=== PATIENT | male | born 1955 | race Hispanic/Latino ===

== ENCOUNTER 2020-02-23 14:22 | Inpatient (IN) | payer OTHER, MEDICARE ==
--- NOTE | 2020-02-23 18:04 | Event Note ---
ED Screening Note ED Screening Note: states that he went to Dr. Thornton office and had abnormal renal function PMHx HTN, DM, CHF This initial assessment/diagnostic orders/clinical plan/treatment(s) is/are subject to change based on patients health status, clinical progression and re- assessment by fellow clinical providers in the ED. Further treatment and workup at subsequent clinical providers discretion. Patient/guardian urged not to elope from the ED as their condition may be serious if not clinically assessed and managed. Initial orders include: labs, UA
[2020-02-23 18:41] LABS: Calcium 9.5 mg/dL (8.4-10.2)
[2020-02-23 18:51] LABS: Basophils # (Auto) 0.1 K/mm3 (0.0-0.1); Basophils % (Auto) 0.5 % (0.0-1.8); Eosinophils # (Auto) 0.1 K/mm3 (0.0-0.4); Eosinophils % (Auto) 0.7 % (0.0-4.3); Hemoglobin 13.4 gm/dl (11.8-15.2); Lymphocytes # (Auto) 1.3 K/mm3 (1.2-5.4); Lymphocytes % (Auto) 11.4 % (13.4-35.0); Mean Corpuscular HGB Conc 33 % (32-34); Mean Corpuscular Volume 87 fl (84-94); Monocytes # (Auto) 1.4 K/mm3 (0.0-0.8); Monocytes % (Auto) 12.7 % (0.0-7.3); Platelet Count 249 K/mm3 (140-440); Red Blood Count 4.71 M/mm3 (3.65-5.03); Red Cell Distribution Width 13.9 % (13.2-15.2)
[2020-02-23 18:53] LABS: INR 1.17 (0.87-1.13)
[2020-02-23 18:54] LABS: Partial Thromboplastin Time 36.1 Sec. (24.2-36.6)
--- NOTE | 2020-02-23 18:59 | Emergency Department Report ---
HPI - General Chief Complaint: Recheck/Abnormal Lab/Rx Time Seen by Provider: 02/23/20 18:02 - HPI HPI: This is a 64-year-old male who presents to the emergency department, sent in by his vascular surgeon Dr. Eris Shearer, with a gangrenous right fourth toe. The patient was recently at [facility] for this fourth toe and he was placed on some antibiotics and discharged home. The patient then followed up yesterday with his salesperson shoes, Dr. Martin, who took a look at the toe and sent him to see Dr. Shearer. It appears that the patient was going to have a revascularization procedure done but before the procedure he had i-STAT labs drawn that showed a creatinine of 2.7 and the procedure was canceled. The patient was then sent into the emergency department for further evaluation. The patient was started on Cilostazol, on top of the baby aspirin he takes. The patient says that "a surgeon was contacted to do an amputation." The patient has a past medical history of hypertension, CHF, diabetes, coronary artery disease with previous CABG. ED Past Medical Hx - Past Medical History Previous Medical History?: Yes Hx Hypertension: Yes Hx Congestive Heart Failure: Yes Hx Diabetes: Yes Hx Renal Disease: Yes (Under investigation) Hx Kidney Stones: Yes - Surgical History Additional Surgical History: CABG ED Review of Systems ROS: Stated complaint: KIDNEY Other details as noted in HPI Physical Exam - Physical Exam Vital Signs: Vital Signs 02/23/20 14:44 Temperature 97.9 F Pulse Rate 76 Respiratory 18 Rate Blood Pressure 151/62 O2 Sat by Pulse 95 Oximetry Physical Exam: GENERAL: The patient is well-developed well-nourished. HENT: Normocephalic. Atraumatic. Patient has moist mucous membranes. EYES: Extraocular motions are intact. NECK: Supple. Trachea is midline. CHEST/LUNGS: Clear to auscultation. There is no respiratory distress noted. HEART/CARDIOVASCULAR: Regular. There is no tachycardia. There is no murmur. ABDOMEN: Abdomen is soft, nontender. Patient has normal bowel sounds. SKIN: Skin is warm and dry. The fourth toe of the right foot appears gangrenous and necrotic. There is some ulceration towards the proximal base of that toe. NEURO: The patient is awake, alert, and oriented. The patient is cooperative. Normal speech. MUSCULOSKELETAL: There is some tenderness to palpation of the right foot around the third and fourth toes. Unable to palpate dorsalis pedis pulse of the right foot. ED Course Vital Signs 02/23/20 14:44 Temperature 97.9 F Pulse Rate 76 Respiratory 18 Rate Blood Pressure 151/62 O2 Sat by Pulse 95 Oximetry - Consultations Consultation #1: 02/23/20 19:[address] Galvan, the partner of Dr. Shearer, who is aware of the patient's arrival and they will consult on the patient. He agrees with IV antibiotics and the patient can remain on aspirin and Cilostazol. He is asked for Dr. Garcia to be consulted for evaluation of the gangrenous fourth toe and for nephrology to be consulted. ED Medical Decision Making - Lab Data Result diagrams: 02/23/20 18:08 02/23/20 18:08 Lab Results 02/23/20 02/23/20 02/23/20 Range/Units 18:08 18:08 18:08 WBC 11.3 H (4.5-11.0) K/mm3 RBC 4.71 (3.65-5.03) M/mm3 Hgb 13.4 (11.8-15.2) gm/dl Hct 41.0 (35.5-45.6) % MCV 87 (84-94) fl MCH 29 (28-32) pg MCHC 33 (32-34) % RDW 13.9 (13.2-15.2) % Plt Count 249 (140-440) K/mm3 Lymph % (Auto) 11.4 L (13.4-35.0) % [place] % (Auto) 12.7 H (0.0-7.3) % Eos % (Auto) 0.7 (0.0-4.3) % Baso % (Auto) 0.5 (0.0-1.8) % Lymph # (Auto) 1.3 (1.2-5.4) K/mm3 [place] # (Auto) 1.4 H (0.0-0.8) K/mm3 Eos # (Auto) 0.1 (0.0-0.4) K/mm3 Baso # (Auto) 0.1 (0.0-0.1) K/mm3 Seg Neutrophils % 74.7 H (40.0-70.0) % Seg Neutrophils # 8.4 H (1.8-7.7) K/mm3 PT 14.9 (12.2-14.9) Sec. INR 1.17 H (0.87-1.13) APTT 36.1 (24.2-36.6) Sec. Sodium 133 L (137-145) mmol/L Potassium 4.6 (3.6-5.0) mmol/L Chloride 100.9 (98-107) mmol/L Carbon Dioxide 18 L (22-30) mmol/L Anion Gap 19 mmol/L BUN 40 H (9-20) mg/dL Creatinine 2.6 H (0.8-1.3) mg/dL Estimated GFR 25 ml/min BUN/Creatinine Ratio 15 % Glucose 197 H (75-100) mg/dL Calcium 9.5 (8.4-10.2) mg/dL - Medical Decision Making This patient was sent in by his vascular surgeon for further evaluation of what appears to be a gangrenous right fourth toe. The patient was unable to get revascularization done by vascular surgery today secondary to the patient having renal insufficiency/failure with a creatinine of about 2.7. Initially the patient denied having any history of chronic kidney disease, but he does admit that he was found to have some renal insufficiency in the past through [facility] but there was some problem with his outpatient nephrology follow- up. The patient's labs today shows a creatinine of 2.6 and a GFR of 25. On examination he does appear to have a gangrenous and necrotic right fourth toe with some ulceration at the proximal base of the toe. There also appears to be some areas of infection to the partially amputated right third toe. Unable to palpate the dorsalis pedis pulse of the affected right foot, but this is consistent with the office notes from vascular surgery. Vascular surgery was contacted and consulted and has also requested consults for Dr. Garcia and [facility]. All 3 of these consults have been placed. The patient has been started on IV antibiotics. He has been accepted for admission by the hospitalist, Dr. Castillo. Critical Care Time: Yes Critical care time in (mins) excluding proc time.: 35 Critical care attestation.: If time is entered above; I have spent that time in minutes in the direct care of this critically ill patient, excluding procedure time. Critical care time spent with this patient in doing his initial evaluation, multiple reevaluations, IV antibiotics, discussion with vascular surgery, multiple discussions with the patient. Critical Care Time: 35 minutes ED Disposition Clinical Impression: Gangrene of toe of right foot, Arterial insufficiency of lower extremity, Renal insufficiency Hypertension Qualifiers: Hypertension type: essential hypertension Qualified Code(s): I10 - Essential (primary) hypertension Disposition: OP ADMIT IP TO THIS HOSP Is pt being admited?: Yes Condition: Serious Time of Disposition: 21:42
[2020-02-23] MEDS ORDERED: CLINDAMYCIN 600 MG/50 mL 600 MG/50 ML BAG IV ONE (19:11)
[2020-02-23] MEDS ORDERED: PIPERACILLIN/TAZOBACTAM 3.375 3.375 GM/50 ML BAG IV ONE (19:11)
[2020-02-24] MEDS ORDERED: ONDANSETRON 4 MG/2 ML INJ IV PRN (00:13)
[2020-02-24] MEDS ORDERED: DEXTROSE 50% IN WATER (25GM) 50 ML SYRINGE IV PRN (00:13)
[2020-02-24] MEDS ORDERED: ACETAMINOPHEN 325 MG TAB PO PRN (00:13)
[2020-02-24] MEDS ORDERED: MAGNESIUM HYDROXIDE (MOM) ORAL LIQD UDC PO PRN (00:13)
--- NOTE | 2020-02-24 00:36 | History and Physical Report ---
History of Present Illness Date of examination: 02/23/20 Date of admission: 02/23/20 21:43 Chief complaint: Right foot Wound/ Gangrene History of present illness: 64-year-old male with known history of coronary artery disease, hypertension, CHF, diabetes mellitus and chronic kidney disease sent in to the emergency room today by the vascular surgeon Dr. Shearer for suspicious gangrenous right fourth toe. Patient was recently seen at [facility] and placed on some antibiotics and subsequently discharged home. He was also seen yesterday by his communications controller Dr. Martin and was subsequently referred to the vascular surgeon for possible revascularization. However patient had a worsening renal function and therefore procedure was canceled. He was subsequently sent into the emergency room for further evaluation. Patient denies any fever or chills, no chest pain or shortness of breath, no nausea vomiting, no headache or dizziness, no hematuria or dysuria. Work-up in the emergency room today reveals a slightly elevated white count of 11.2 and a mild hyponatremia of 133. Patient was commenced on empiric IV antibiotics for right foot wound/gangrene. General surgery, vascular surgery, and grocery clerk checking have been consulted by the ER physician. Past History Past Medical History: diabetes, ESRD, heart failure, hypertension, renal failure Past Surgical History: CABG, Other (Kidney stones) Social history: no significant social history Family history: no significant family history Medications and Allergies Allergies Allergy/AdvReac Type Severity Reaction Status Date / Time No Known Allergies Allergy Unverified 02/23/20 14:44 Active Meds: Active Medications Acetaminophen (Acetaminophen 325 Mg Tab) 650 mg PO Q4H PRN PRN Reason: Pain MILD(1-3)/Fever >100.5/HART Dextrose (Dextrose 50% In Water (25gm) 50 Ml Syringe) 0 ml IV Q30MIN PRN; Protocol PRN Reason: Hypoglycemia Sodium Chloride (Nacl 0.9% 1000 Ml) 1,000 mls @ 75 mls/hr IV DIRECT SHANNON Clindamycin HCl (Cleocin 600 Mg/50 Ml) 600 mg in 50 mls @ 100 mls/hr IV Q8H SHANNON; Protocol Insulin Human Lispro (Insulin Lispro 100 Unit/Ml Vial 3 Ml) 0 unit SUB-Q ACHS SHANNON; Protocol Magnesium Hydroxide (Magnesium Hydroxide (Mom) Oral Liqd Udc) 30 ml PO Q4H PRN PRN Reason: Constipation Morphine Sulfate (Morphine 2 Mg/1 Ml Inj) 2 mg IV Q4H PRN PRN Reason: Pain, Moderate (4-6) Ondansetron HCl (Ondansetron 4 Mg/2 Ml Inj) 4 mg IV Q8H PRN PRN Reason: Nausea And Vomiting Sodium Chloride (Sodium Chloride 0.9% 10 Ml Flush Syringe) 10 ml IV BID SHANNON Sodium Chloride (Sodium Chloride 0.9% 10 Ml Flush Syringe) 10 ml IV PRN PRN PRN Reason: LINE FLUSH Review of Systems Constitutional: no fever, no chills Ears, nose, mouth and throat: no nasal congestion, no sore throat Cardiovascular: no chest pain, no palpitations Respiratory: no cough, no shortness of breath Gastrointestinal: no abdominal pain, no nausea, no vomiting, no diarrhea Genitourinary Male: no dysuria, no hematuria, no flank pain Musculoskeletal: no neck pain, no low back pain Integumentary: foot/leg ulcers (Wound on the right foot), no rash, no pruritis Neurological: no headaches, no confusion Psychiatric: no anxiety, no depression Exam - Constitutional Vitals: Temp Pulse Resp BP Pulse Ox 97.9 F 76 18 151/62 95 02/23/20 14:44 02/23/20 14:44 02/23/20 14:44 02/23/20 14:44 02/23/20 14:44 General appearance: Present: no acute distress, well-nourished, obese - EENT Eyes: Present: PERRL, EOM intact. Absent: scleral icterus ENT: hearing intact, clear oral mucosa, dentition normal - Neck Neck: Present: supple, normal ROM - Respiratory Respiratory effort: normal Respiratory: bilateral: CTA - Cardiovascular Rhythm: regular Heart Sounds: Present: S1 & S2. Absent: gallop, systolic murmur, diastolic murmur, rub - Extremities Extremities: Full ROM Extremity abnormal: edema (2+ on right lower extremity), ulceration (On right third toe with foul smelling discarge.), erythema (Over dorsum of right foot), black (4th right toe,), pulses diminished (On right foot,), tenderness (Over the dorsum of right foot) Peripheral Pulses: within normal limits - Abdominal General gastrointestinal: Present: soft, non-tender, non-distended, normal bowel sounds. Absent: mass - Integumentary Integumentary: Present: clear, warm, dry. Absent: rash - Musculoskeletal Musculoskeletal: strength equal bilaterally - Psychiatric Psychiatric: appropriate mood/affect, intact judgment & insight, memory intact, cooperative - Neurologic Neurologic: CNII-XII intact, no focal deficits, moves all extremities Results - Labs CBC & Chem 7: 02/23/20 18:08 02/23/20 18:08 Labs: Abnormal lab results 02/23/20 02/23/20 02/23/20 Range/Units 18:08 18:08 18:08 WBC 11.3 H (4.5-11.0) K/mm3 Lymph % (Auto) 11.4 L (13.4-35.0) % [place] % (Auto) 12.7 H (0.0-7.3) % [place] # (Auto) 1.4 H (0.0-0.8) K/mm3 Seg Neutrophils % 74.7 H (40.0-70.0) % Seg Neutrophils # 8.4 H (1.8-7.7) K/mm3 INR 1.17 H (0.87-1.13) Sodium 133 L (137-145) mmol/L Carbon Dioxide 18 L (22-30) mmol/L BUN 40 H (9-20) mg/dL Creatinine 2.6 H (0.8-1.3) mg/dL Glucose 197 H (75-100) mg/dL Assessment and Plan - Patient Problems (1) Gangrene of toe of right foot Current Visit: Yes Status: Acute Plan to address problem: Patient commenced on empiric IV antibiotics. General surgery, vascular surgery has been consulted for evaluation. (2) Hypertension Current Visit: Yes Status: Acute Qualifiers: Hypertension type: essential hypertension Qualified Code(s): I10 - Essential (primary) hypertension Plan to address problem: We resume routine home medications and monitor vital signs closely. (3) Arterial insufficiency of lower extremity Current Visit: Yes Status: Acute Plan to address problem: Patient to be evaluated by vascular surgery. (4) Renal insufficiency Current Visit: Yes Status: Acute Plan to address problem: Consult placed to nephrology for evaluation. (5) Diabetes mellitus Current Visit: Yes Status: Acute Plan to address problem: We will monitor Accu-Cheks. (6) DVT prophylaxis Current Visit: Yes Status: Acute Plan to address problem: Patient placed on sequential compression device. We will hold off anticoagulation in view of possible surgery. (7) Full code status Current Visit: Yes Status: Acute Plan to address problem: Patient is a full code.
[2020-02-24] MEDS: SODIUM CHLORIDE 0.9% 1000 ML 1,000 ML IV SCH ×2 (05:35→21:47)
[2020-02-24] MEDS: CLINDAMYCIN 600 MG/50 mL 600 MG/50 ML BAG IV SCH ×3 (05:35→21:11)
--- NOTE | 2020-02-24 09:37 | Consultation ---
History of Present Illness Consult date: 02/24/20 - History of present illness History of present illness: 64 yo diabetic male, non-smoker who is s/p recent amputation of his right 3rd toe by a kiln burner helper at [facility]. Yesterday, he was noted to have ischemic/gangrenous changes in his right 4th toe and was referred to the ED for further evaluation. He was taking Keflex as an outpt. Past History Past Medical History: diabetes, ESRD, heart failure, hypertension, renal failure Past Surgical History: CABG, Other (Kidney stones) Social history: no significant social history Family history: no significant family history Medications and Allergies Allergies Allergy/AdvReac Type Severity Reaction Status Date / Time No Known Allergies Allergy Unverified 02/23/20 14:44 Active Meds: Active Medications Acetaminophen (Acetaminophen 325 Mg Tab) 650 mg PO Q4H PRN PRN Reason: Pain MILD(1-3)/Fever >100.5/HART Dextrose (Dextrose 50% In Water (25gm) 50 Ml Syringe) 0 ml IV Q30MIN PRN; Protocol PRN Reason: Hypoglycemia Sodium Chloride (Nacl 0.9% 1000 Ml) 1,000 mls @ 75 mls/hr IV DIRECT SHANNON Last Admin: 02/24/20 05:35 Dose: 75 mls/hr Documented by: Clindamycin HCl (Cleocin 600 Mg/50 Ml) 600 mg in 50 mls @ 100 mls/hr IV Q8H SHANNON; Protocol Last Admin: 02/24/20 05:35 Dose: 100 mls/hr Documented by: Insulin Human Lispro (Insulin Lispro 100 Unit/Ml Vial 3 Ml) 0 unit SUB-Q ACHS SHANNON; Protocol Magnesium Hydroxide (Magnesium Hydroxide (Mom) Oral Liqd Udc) 30 ml PO Q4H PRN PRN Reason: Constipation Morphine Sulfate (Morphine 2 Mg/1 Ml Inj) 2 mg IV Q4H PRN PRN Reason: Pain, Moderate (4-6) Ondansetron HCl (Ondansetron 4 Mg/2 Ml Inj) 4 mg IV Q8H PRN PRN Reason: Nausea And Vomiting Sodium Chloride (Sodium Chloride 0.9% 10 Ml Flush Syringe) 10 ml IV BID SHANNON Sodium Chloride (Sodium Chloride 0.9% 10 Ml Flush Syringe) 10 ml IV PRN PRN PRN Reason: LINE FLUSH Review of Systems All systems: negative (none) Exam Vital Signs Temp Pulse Resp BP Pulse Ox 97.9 F 76 18 151/62 95 02/23/20 14:44 02/23/20 14:44 02/23/20 14:44 02/23/20 14:44 02/23/20 14:44 - General physical appearance Positive: well developed, well nourished, no distress - Eyes Positive: PERRL, normal occular movement - ENT Positive: normal pinna, normal nares, normal mucosa, no hearing loss, no congestion - Neck Positive: no masses, no bruits, trachea midline, no venous distension - Respiratory Positive: normal expansion, normal respiratory effort, clear to auscultation - Cardiovascular Rhythm: regular Heart Sounds: Present: S1 & S2. Absent: rub, click - Extremities Extremity abnormal: other (Right DP pulse is non-palpable. See Integumentary.) - Breasts Breasts: normal, no mass, no skin changes - Abdomen Abdomen: Present: soft, bowel sounds normal. Absent: tender, distended Hernia: none - Genitourinary Male Genitourinary: normal - Integumentary no rash, no growths, no abnormal pigmentation, other (The right 3rd toe is surgically absent. The right 4th toe is gangrenous. There is minimal erythema just proximal to the base of the right 3rd and 4th toes. No fluctuance or crepitus.) - Neurologic Neurologic: alert and oriented to time, place and person, motor strength and sensation are grossly intact - Musculoskeletal normal gait, normal posture - Psychiatric Psychiatric: appropriate mood/affect, intact judgment & insight Results - Labs 02/23/20 18:08 02/23/20 18:08 Abnormal lab results 02/23/20 02/23/20 02/23/20 Range/Units 18:08 18:08 18:08 WBC 11.3 H (4.5-11.0) K/mm3 Lymph % (Auto) 11.4 L (13.4-35.0) % [place] % (Auto) 12.7 H (0.0-7.3) % [place] # (Auto) 1.4 H (0.0-0.8) K/mm3 Seg Neutrophils % 74.7 H (40.0-70.0) % Seg Neutrophils # 8.4 H (1.8-7.7) K/mm3 INR 1.17 H (0.87-1.13) Sodium 133 L (137-145) mmol/L Carbon Dioxide 18 L (22-30) mmol/L BUN 40 H (9-20) mg/dL Creatinine 2.6 H (0.8-1.3) mg/dL Glucose 197 H (75-100) mg/dL POC Glucose (70-105) mg/dL 02/24/20 02/24/20 Range/Units 01:43 07:25 WBC (4.5-11.0) K/mm3 Lymph % (Auto) (13.4-35.0) % [place] % (Auto) (0.0-7.3) % [place] # (Auto) (0.0-0.8) K/mm3 Seg Neutrophils % (40.0-70.0) % Seg Neutrophils # (1.8-7.7) K/mm3 INR (0.87-1.13) Sodium (137-145) mmol/L Carbon Dioxide (22-30) mmol/L BUN (9-20) mg/dL Creatinine (0.8-1.3) mg/dL Glucose (75-100) mg/dL POC Glucose 152 H 164 H (70-105) mg/dL Diabetes panel 02/23/20 Range/Units 18:08 Sodium 133 L (137-145) mmol/L Potassium 4.6 (3.6-5.0) mmol/L Chloride 100.9 (98-107) mmol/L Carbon Dioxide 18 L (22-30) mmol/L BUN 40 H (9-20) mg/dL Creatinine 2.6 H (0.8-1.3) mg/dL Glucose 197 H (75-100) mg/dL Calcium 9.5 (8.4-10.2) mg/dL Calcium panel 02/23/20 Range/Units 18:08 Calcium 9.5 (8.4-10.2) mg/dL Pituitary panel 02/23/20 Range/Units 18:08 Sodium 133 L (137-145) mmol/L Potassium 4.6 (3.6-5.0) mmol/L Chloride 100.9 (98-107) mmol/L Carbon Dioxide 18 L (22-30) mmol/L BUN 40 H (9-20) mg/dL Creatinine 2.6 H (0.8-1.3) mg/dL Glucose 197 H (75-100) mg/dL Calcium 9.5 (8.4-10.2) mg/dL Adrenal panel 02/23/20 Range/Units 18:08 Sodium 133 L (137-145) mmol/L Potassium 4.6 (3.6-5.0) mmol/L Chloride 100.9 (98-107) mmol/L Carbon Dioxide 18 L (22-30) mmol/L BUN 40 H (9-20) mg/dL Creatinine 2.6 H (0.8-1.3) mg/dL Glucose 197 H (75-100) mg/dL Calcium 9.5 (8.4-10.2) mg/dL Assessment and Plan - Patient Problems (1) Gangrene of toe of right foot Current Visit: Yes Status: Acute Plan to address problem: 1) Vascular surgery consultation 2) X-ray and MRI of right foot 3) Strict DM management 4) Wound Care nurse consultation
[2020-02-24] MEDS: INSULIN LISPRO 100 UNIT/ML VIAL 3 mL SUB-Q SCH ×4 (10:15→21:48)
--- NOTE | 2020-02-24 10:54 | Consultation ---
History of Present Illness - Reason for Consult Consult date: 02/24/20 Peripheral vascular disease with gangrene - History of Present Illness Patient with a history of peripheral vascular disease with gangrene of his right fourth toe. He was recently discharged from [facility] with wet gangrene of his right fourth toe and placed on oral antibiotics. The patient was then seen in our office for potential revascularization however, at that time his wet gangrene was noted in addition, the patient has developed a component of acute on chronic renal failure. Past History Past Medical History: diabetes, ESRD, heart failure, hypertension, renal failure Past Surgical History: CABG, Other (Kidney stones) Social history: no significant social history Family history: no significant family history Medications and Allergies Allergies Allergy/AdvReac Type Severity Reaction Status Date / Time No Known Allergies Allergy Unverified 02/23/20 14:44 Active Meds: Active Medications Acetaminophen (Acetaminophen 325 Mg Tab) 650 mg PO Q4H PRN PRN Reason: Pain MILD(1-3)/Fever >100.5/AHRT Dextrose (Dextrose 50% In Water (25gm) 50 Ml Syringe) 0 ml IV Q30MIN PRN; Protocol PRN Reason: Hypoglycemia Sodium Chloride (Nacl 0.9% 1000 Ml) 1,000 mls @ 75 mls/hr IV DIRECT SHANNON Last Admin: 02/24/20 05:35 Dose: 75 mls/hr Documented by: Clindamycin HCl (Cleocin 600 Mg/50 Ml) 600 mg in 50 mls @ 100 mls/hr IV Q8H SHANNON; Protocol Last Admin: 02/24/20 05:35 Dose: 100 mls/hr Documented by: Insulin Human Lispro (Insulin Lispro 100 Unit/Ml Vial 3 Ml) 0 unit SUB-Q ACHS SHANNON; Protocol Last Admin: 02/24/20 10:15 Dose: 2 unit Documented by: Magnesium Hydroxide (Magnesium Hydroxide (Mom) Oral Liqd Udc) 30 ml PO Q4H PRN PRN Reason: Constipation Morphine Sulfate (Morphine 2 Mg/1 Ml Inj) 2 mg IV Q4H PRN PRN Reason: Pain, Moderate (4-6) Ondansetron HCl (Ondansetron 4 Mg/2 Ml Inj) 4 mg IV Q8H PRN PRN Reason: Nausea And Vomiting Sodium Chloride (Sodium Chloride 0.9% 10 Ml Flush Syringe) 10 ml IV BID SHANNON Last Admin: 02/24/20 10:15 Dose: 10 ml Documented by: Sodium Chloride (Sodium Chloride 0.9% 10 Ml Flush Syringe) 10 ml IV PRN PRN PRN Reason: LINE FLUSH Review of Systems All systems: negative Exam - Constitutional Vitals: Temp Pulse Resp BP Pulse Ox 98.4 F 72 24 120/32 95 02/24/20 08:10 02/24/20 08:10 02/24/20 08:10 02/24/20 08:10 02/24/20 08:10 General appearance: Present: no acute distress - EENT Eyes: Present: EOM intact ENT: hearing intact - Neck Neck: Present: normal ROM - Respiratory Respiratory effort: normal - Extremities Extremities: abnormal - Abdominal General gastrointestinal: Present: deferred Male genitourinary: Present: deferred - Rectal Rectal Exam: deferred - Psychiatric Psychiatric: appropriate mood/affect, cooperative Results - Labs CBC & Chem 7: 02/23/20 18:08 02/23/20 18:08 Labs: Abnormal lab results 02/23/20 02/23/20 02/23/20 Range/Units 18:08 18:08 18:08 WBC 11.3 H (4.5-11.0) K/mm3 Lymph % (Auto) 11.4 L (13.4-35.0) % [place] % (Auto) 12.7 H (0.0-7.3) % [place] # (Auto) 1.4 H (0.0-0.8) K/mm3 Seg Neutrophils % 74.7 H (40.0-70.0) % Seg Neutrophils # 8.4 H (1.8-7.7) K/mm3 INR 1.17 H (0.87-1.13) Sodium 133 L (137-145) mmol/L Carbon Dioxide 18 L (22-30) mmol/L BUN 40 H (9-20) mg/dL Creatinine 2.6 H (0.8-1.3) mg/dL Glucose 197 H (75-100) mg/dL POC Glucose (70-105) mg/dL 02/24/20 02/24/20 Range/Units 01:43 07:25 WBC (4.5-11.0) K/mm3 Lymph % (Auto) (13.4-35.0) % [place] % (Auto) (0.0-7.3) % [place] # (Auto) (0.0-0.8) K/mm3 Seg Neutrophils % (40.0-70.0) % Seg Neutrophils # (1.8-7.7) K/mm3 INR (0.87-1.13) Sodium (137-145) mmol/L Carbon Dioxide (22-30) mmol/L BUN (9-20) mg/dL Creatinine (0.8-1.3) mg/dL Glucose (75-100) mg/dL POC Glucose 152 H 164 H (70-105) mg/dL Assessment and Plan Patient with worsening renal function, wet gangrene to his right fourth toe and severe peripheral vascular disease. He will need to be medically optimized with a plan towards revascularization of his right leg on Friday and potentially amputation of his fourth toe on Friday.
--- NOTE | 2020-02-24 10:54 | XRay Report ---
RIGHT FOOT 1 VIEW INDICATION: right 4th toe gangrene. COMPARISON: None. IMPRESSION: Only a single limited view of the right foot is presented with obliquity. There is sugge stion of previous amputation of the distal third toe. There is mild soft tissue gas near the base of the fourth toe but no obvious fracture or bony destruction. The remaining bony structures are grossly intact. No significant DJD. Signer Name: Gerardo Espinosa Jr, MD Signed: 02/24/2020 10:50 AM Workstation Name: [id number]
--- NOTE | 2020-02-24 13:47 | Consultation ---
History of Present Illness - Reason for Consult acute renal failure - History of Present Illness Very pleasant 64-year-old obese male the past medical history of diabetes, hypertension, peripheral vascular disease, and what seems to be right fourth toe gangrene, was sent into the emergency department by vascular surgery for worsening renal failure. Patient initially went to the vascular surgeon for possible revascularization but secondary to worsening renal indices patient was sent to the emergency department for further evaluation at this time. Patient had a recent hospitalization at [facility]. Was sent home on antibiotics for his right toe gangrenous lesion. It seems that with worsening right toe gangrene that a revascularization procedure is required at this time. Past History Past Medical History: diabetes, ESRD, heart failure, hypertension, renal failure Past Surgical History: CABG, Other (Kidney stones) Social history: no significant social history Family history: no significant family history Medications and Allergies Allergies Allergy/AdvReac Type Severity Reaction Status Date / Time No Known Allergies Allergy Unverified 02/23/20 14:44 Active Meds: Active Medications Acetaminophen (Acetaminophen 325 Mg Tab) 650 mg PO Q4H PRN PRN Reason: Pain MILD(1-3)/Fever >100.5/HART Dextrose (Dextrose 50% In Water (25gm) 50 Ml Syringe) 0 ml IV Q30MIN PRN; Protocol PRN Reason: Hypoglycemia Sodium Chloride (Nacl 0.9% 1000 Ml) 1,000 mls @ 75 mls/hr IV DIRECT SHANNON Last Admin: 02/24/20 05:35 Dose: 75 mls/hr Documented by: Clindamycin HCl (Cleocin 600 Mg/50 Ml) 600 mg in 50 mls @ 100 mls/hr IV Q8H SHANNON; Protocol Last Admin: 02/24/20 12:40 Dose: 100 mls/hr Documented by: Insulin Human Lispro (Insulin Lispro 100 Unit/Ml Vial 3 Ml) 0 unit SUB-Q ACHS SHANNON; Protocol Last Admin: 02/24/20 12:40 Dose: 2 unit Documented by: Magnesium Hydroxide (Magnesium Hydroxide (Mom) Oral Liqd Udc) 30 ml PO Q4H PRN PRN Reason: Constipation Morphine Sulfate (Morphine 2 Mg/1 Ml Inj) 2 mg IV Q4H PRN PRN Reason: Pain, Moderate (4-6) Ondansetron HCl (Ondansetron 4 Mg/2 Ml Inj) 4 mg IV Q8H PRN PRN Reason: Nausea And Vomiting Sodium Chloride (Sodium Chloride 0.9% 10 Ml Flush Syringe) 10 ml IV BID SHANNON Last Admin: 02/24/20 10:15 Dose: 10 ml Documented by: Sodium Chloride (Sodium Chloride 0.9% 10 Ml Flush Syringe) 10 ml IV PRN PRN PRN Reason: LINE FLUSH Review of Systems All systems: negative Constitutional: fatigue, weakness Exam - Vital Signs Vital signs: Vital Signs Temp Pulse Resp BP Pulse Ox 97.9 F 76 18 151/62 95 02/23/20 14:44 02/23/20 14:44 02/23/20 14:44 02/23/20 14:44 02/23/20 14:44 - General Appearance General appearance: well-developed, appears stated age, obese EENT: ATNC Neck: Present: neck supple Respiratory: Clear to Ascultation, Normal Exam Heart: regular Gastrointestinal: Present: normal Integumentary: ulcer Neurologic: no focal deficit, alert and oriented x3 Musculoskeletal: Present: deferred Psychiatric: cooperative Results - Lab Results 02/23/20 18:08 02/23/20 18:08 Most recent lab results Calcium 9.5 mg/dL (8.4-10.2) 02/23/20 18:08 Assessment and Plan - Patient Problems (1) [id number] kidney injury Current Visit: Yes Status: Acute Plan to address problem: Agree with current regimen with IV fluid hydration. He likely has at least underlying chronic kidney disease stage III in the setting of diabetes and hypertension. Have have ordered for urine analysis along with urine electrolytes for further evaluation. We will also order for renal ultrasound at this time. Please avoid all nephrotoxins and maintain mean arterial pressure above 65 mmHg. Hopefully with continued IV fluid hydration his renal function will stabilize back to baseline so that he will be ready to undergo the planned revascularization and surgery with vascular. We will continue to monitor closely. (2) Gangrene of toe of right foot Current Visit: Yes Status: Acute Plan to address problem: Per vascular surgery the plan is for optimization of renal function prior to likely vascularization on Friday and further surgical intervention afterwards. We will follow up with vascular surgery. (3) Hypertension Current Visit: Yes Status: Acute Qualifiers: Hypertension type: essential hypertension Qualified Code(s): I10 - Essential (primary) hypertension Plan to address problem: Monitor blood pressures on the current regimen. (4) Diabetes mellitus Current Visit: Yes Status: Acute Plan to address problem: Diabetes management per primary attending.
--- NOTE | 2020-02-24 15:21 | Progress Note ---
Assessment and Plan Assessment and plan: -- Gangrene of toe of right foot Current Visit: Yes Status: Acute Plan to address problem: Patient commenced on empiric IV antibiotics. General surgery, vascular surgery has been consulted for evaluation. -- Hypertension Current Visit: Yes Status: Acute Plan to address problem: We resume routine home medications and monitor vital signs closely. --Arterial insufficiency of lower extremity Current Visit: Yes Status: Acute Plan to address problem: Patient to be evaluated by vascular surgery. --Acute kidney injury/vasomotor nephropathy Current Visit: Yes Status: Acute Plan to address problem: Nephrology following Closely monitor renal function avoid nephrotoxins --Type II diabetes mellitus Current Visit: Yes Status: Acute Plan to address problem: Accu-Chek sliding scale coverage ADA diet Long-acting insulin as needed --Severe malnutrition/hypoalbuminemia Current Visit: Yes Status: Acute Plan to address problem: Nutrition supplements, nutrition consult Nutrition supplements, nutrition consult And supportive care --DVT prophylaxis Current Visit: Yes Status: Acute. Plan to address problem: Patient placed on sequential compression device. We will hold off anticoagulation in view of possible surgery. --Full code status Current Visit: Yes Status: Acute Plan to address problem: Patient is a full code. Consults evaluation and recommendations noted and appreciated Plan of care reviewed with the patient and his nurse 02/25/2020 :vascular waiting for medical stabilization specially the renal function Creatinine level slowly trending down, avoid nephrotoxins Nephrology and vascular evaluation noted and appreciated Closely monitor the patient and adjust the management as needed History Interval history: I seen and examined the patient at the bedside Patient's chart and medications reviewed Patient feels slightly better Renal ,vascular and surgery evaluation noted and appreciated Signs noted Hospitalist Physical - Constitutional Vitals: Temp Pulse Resp BP Pulse Ox 98.0 F 64 19 146/56 94 02/24/20 13:14 02/24/20 13:14 02/24/20 13:14 02/24/20 13:14 02/24/20 13:14 General appearance: Present: no acute distress, well-nourished, obese - EENT Eyes: Present: PERRL, EOM intact - Neck Neck: Present: supple, normal ROM - Respiratory Respiratory effort: normal Respiratory: bilateral: diminished, negative: rales, rhonchi, wheezing - Cardiovascular Rhythm: regular Heart Sounds: Present: S1 & S2 - Extremities Extremities: abnormal (Right fourth toe gangrene) - Abdominal General gastrointestinal: soft, non-tender, non-distended, normal bowel sounds - Integumentary Integumentary: Present: clear, warm - Psychiatric Psychiatric: appropriate mood/affect, cooperative - Neurologic Neurologic: moves all extremities Results - Labs CBC & Chem 7: 02/25/20 05:32 02/25/20 05:32 Labs: Laboratory Last Values WBC 11.3 K/mm3 (4.5-11.0) H 02/23/20 18:08 RBC 4.71 M/mm3 (3.65-5.03) 02/23/20 18:08 Hgb 13.4 gm/dl (11.8-15.2) 02/23/20 18:08 Hct 41.0 % (35.5-45.6) 02/23/20 18:08 MCV 87 fl (84-94) 02/23/20 18:08 MCH 29 pg (28-32) 02/23/20 18:08 MCHC 33 % (32-34) 02/23/20 18:08 RDW 13.9 % (13.2-15.2) 02/23/20 18:08 Plt Count 249 K/mm3 (140-440) 02/23/20 18:08 Lymph % (Auto) 11.4 % (13.4-35.0) L 02/23/20 18:08 [place] % (Auto) 12.7 % (0.0-7.3) H 02/23/20 18:08 Eos % (Auto) 0.7 % (0.0-4.3) 02/23/20 18:08 Baso % (Auto) 0.5 % (0.0-1.8) 02/23/20 18:08 Lymph # (Auto) 1.3 K/mm3 (1.2-5.4) 02/23/20 18:08 [place] # (Auto) 1.4 K/mm3 (0.0-0.8) H 02/23/20 18:08 Eos # (Auto) 0.1 K/mm3 (0.0-0.4) 02/23/20 18:08 Baso # (Auto) 0.1 K/mm3 (0.0-0.1) 02/23/20 18:08 Seg Neutrophils % 74.7 % (40.0-70.0) H 02/23/20 18:08 Seg Neutrophils # 8.4 K/mm3 (1.8-7.7) H 02/23/20 18:08 PT 14.9 Sec. (12.2-14.9) 02/23/20 18:08 INR 1.17 (0.87-1.13) H 02/23/20 18:08 APTT 36.1 Sec. (24.2-36.6) 02/23/20 18:08 Sodium 133 mmol/L (137-145) L 02/23/20 18:08 Potassium 4.6 mmol/L (3.6-5.0) 02/23/20 18:08 Chloride 100.9 mmol/L (98-107) 02/23/20 18:08 Carbon Dioxide 18 mmol/L (22-30) L 02/23/20 18:08 Anion Gap 19 mmol/L 02/23/20 18:08 BUN 40 mg/dL (9-20) H 02/23/20 18:08 Creatinine 2.6 mg/dL (0.8-1.3) H 02/23/20 18:08 Estimated GFR 25 ml/min 02/23/20 18:08 BUN/Creatinine Ratio 15 % 02/23/20 18:08 Glucose 197 mg/dL (75-100) H 02/23/20 18:08 POC Glucose 179 mg/dL (70-105) H 02/24/20 11:33 Calcium 9.5 mg/dL (8.4-10.2) 02/23/20 18:08 Microbiology: Microbiology 02/23/20 19:05 Peripheral/Venous Blood Culture - Preliminary Culture in Progress 02/23/20 18:58 Peripheral/Venous Blood Culture - Preliminary Culture in Progress Pierre/IV: Voiding Method Urinal IV Catheter Type [Right INT / Saline Lock Forearm] Active Medications - Current Medications Current Medications: Generic Name Dose Route Start Last Admin Trade Name Freq PRN Reason Stop Dose Admin Acetaminophen 650 mg 02/24/20 00:13 Acetaminophen 325 Mg Tab PO Q4H PRN Pain MILD(1-3)/Fever >100.5/HART Dextrose 0 ml 02/24/20 00:13 Dextrose 50% In Water (25gm) 50 Ml Syringe IV Q30MIN PRN Hypoglycemia Protocol Sodium Chloride 1,000 mls @ 75 mls/hr 02/24/20 00:15 02/24/20 05:35 Nacl 0.9% 1000 Ml IV 75 mls/hr DIRECT SHANNON Administration Clindamycin HCl 600 mg in 50 mls @ 100 mls/hr 02/24/20 04:00 02/24/20 12:40 Cleocin 600 Mg/50 Ml IV 100 mls/hr Q8H SHANNON Administration Protocol Insulin Human Lispro 0 unit 02/24/20 07:30 02/24/20 12:40 Insulin Lispro 100 Unit/Ml Vial 3 Ml SUB-Q 2 unit ACHS SHANNON Administration Protocol Magnesium Hydroxide 30 ml 02/24/20 00:13 Magnesium Hydroxide (Mom) Oral Liqd Udc PO Q4H PRN Constipation Morphine Sulfate 2 mg 02/24/20 00:13 Morphine 2 Mg/1 Ml Inj IV Q4H PRN Pain, Moderate (4-6) Ondansetron HCl 4 mg 02/24/20 00:13 Ondansetron 4 Mg/2 Ml Inj IV Q8H PRN Nausea And Vomiting Sodium Chloride 10 ml 02/24/20 10:00 02/24/20 10:15 Sodium Chloride 0.9% 10 Ml Flush Syringe IV 10 ml BID SHANNON Administration Sodium Chloride 10 ml 02/24/20 00:13 Sodium Chloride 0.9% 10 Ml Flush Syringe IV PRN PRN LINE FLUSH Nutrition/Malnutrition Assess - Dietary Evaluation Nutrition/Malnutrition Findings: Nutrition Notes Start: 02/24/20 12:11 Freq: Status: Active Protocol: Document 02/24/20 12:11 LM (Rec: 02/24/20 12:15 LM [id number]) Nutrition Notes Need for Assessment generated from: MD Order,Education Weight Status Obese Subjective/Other Information MD consult for diet education. Pt stated eating well with no wt loss. 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 Pt admits to eating fast foods but has a cooler and is open to packing healthier optons from home. Discussed with pt healthy foods he could pack for DM and HTN. Discussed the plate method, portions, heart healthy foods with pt. Pt eager to start making healthy changes. #1 Nutrition Diagnosis Food and nutrition-related knowledge deficit Etiology No prior DM and HTN diet education As Evidenced by Signs and Symptoms Pt requesting diet education Nutrition Intervention Teaching Recipient Patient Learning Readiness Good Teaching Methods Discussion,Handout Response to Teaching Verbalize understanding Education Handouts Provided Carbohydrate Counting for people with DM, HTN hand out Barriers to Learning Environmental RD phone number provided Yes Patient aware of follow up options Yes Revisit per MD consult or patient Sign Off request:
--- NOTE | 2020-02-24 15:56 | Magnetic Resonance Report ---
MRI RIGHT FOOT WITHOUT CONTRAST INDICATION / CLINICAL INFORMATION: right 4th toe gangrene. TECHNIQUE: Multiplanar, multisequence MR images were obtained. COMPARISON: Right foot x-ray 02/24/2020 FINDINGS: BONES: Amputation of third toe PIP joint. Moderate bone marrow edema within the third toe proximal ph alanx on STIR images with decreased T1 signal intensity diagnostic for acute osteomyelitis. No fractu re. No osseous lesion. JOINTS: No significant arthritis. No significant joint effusion or synovitis. SUBCUTANEOUS SOFT TISSUES: Mild/moderate subcutaneous edema throughout right foot characteristic for cellulitis. MUSCLES: No significant abnormality. FLEXOR TENDONS: No significant abnormality. EXTENSOR TENDONS: No significant abnormality. LIGAMENTS: No significant abnormality. ADDITIONAL FINDINGS: None. IMPRESSION: 1. Osteomyelitis involving the third toe proximal phalanx with cellulitis of right foot. No drainable fluid collection/abscess Signer Name: Jose L Dawn MD Signed: 02/24/2020 3:51 PM Workstation Name: [id number]
[2020-02-24] MEDS: MORPHINE 2 MG/1 ML INJ IV PRN ×2 (17:02→21:12)
[2020-02-25] MEDS: MORPHINE 2 MG/1 ML INJ IV PRN ×2 (05:16→20:47)
[2020-02-25] MEDS: CLINDAMYCIN 600 MG/50 mL 600 MG/50 ML BAG IV SCH ×3 (05:16→21:54)
[2020-02-25 06:02] LABS: Basophils # (Auto) 0.1 K/mm3 (0.0-0.1); Basophils % (Auto) 0.9 % (0.0-1.8); Eosinophils # (Auto) 0.2 K/mm3 (0.0-0.4); Eosinophils % (Auto) 2.5 % (0.0-4.3); Hematocrit 35.8 % (35.5-45.6); Hemoglobin 11.9 gm/dl (11.8-15.2); Lymphocytes # (Auto) 1.2 K/mm3 (1.2-5.4); Lymphocytes % (Auto) 18.4 % (13.4-35.0); Mean Corpuscular HGB Conc 33 % (32-34); Mean Corpuscular Volume 85 fl (84-94); Monocytes # (Auto) 0.9 K/mm3 (0.0-0.8); Monocytes % (Auto) 13.2 % (0.0-7.3); Platelet Count 218 K/mm3 (140-440); Red Cell Distribution Width 13.8 % (13.2-15.2)
[2020-02-25 06:16] LABS: INR 1.12 (0.87-1.13)
[2020-02-25 06:18] LABS: Alanine Aminotransferase 26 units/L (7-56); Albumin 2.8 g/dL (3.9-5); BUN/Creatinine Ratio 14; Blood Urea Nitrogen 32 mg/dL (9-20); Calcium 8.8 mg/dL (8.4-10.2); Hemolysis Index 4
[2020-02-25 06:24] LABS: Bilirubin,Direct < 0.2 mg/dL (0-0.2)
[2020-02-25] MEDS: INSULIN LISPRO 100 UNIT/ML VIAL 3 mL SUB-Q SCH ×5 (10:04→22:01)
--- NOTE | 2020-02-25 14:04 | Progress Note ---
Assessment and Plan Assessment and plan: -- Gangrene of right fourth toe Current Visit: Yes Status: Acute Plan to address problem: Patient commenced on empiric IV antibiotics. Vascular : evaluated the patient and recommend the patient need to be medically optimized with a plan towards revascularization of his right leg on Friday02/28/2020 and potentially amputation of his fourth toe on Friday02/29/2020. Surgery:seen the patient, recommend wound care and amputation next week After 02/29/2020 when he is available, would also recommend earlier intervention By vascular as needed -- Hypertension Current Visit: Yes Status: Acute Plan to address problem: We resume routine home medications and monitor vital signs closely. --Arterial insufficiency of lower extremity Current Visit: Yes Status: Acute Plan to address problem: Patient to be evaluated by vascular surgery. --Acute kidney injury/vasomotor nephropathy Current Visit: Yes Status: Acute Plan to address problem: Nephrology following Closely monitor renal function avoid nephrotoxins --Type II diabetes mellitus Current Visit: Yes Status: Acute Plan to address problem: Accu-Chek sliding scale coverage ADA diet Long-acting insulin as needed --Severe malnutrition/hypoalbuminemia Current Visit: Yes Status: Acute Plan to address problem: Nutrition supplements, nutrition consult Nutrition supplements, nutrition consult And supportive care --DVT prophylaxis Current Visit: Yes Status: Acute. Plan to address problem: Patient placed on sequential compression device. We will hold off anticoagulation in view of possible surgery. --Full code status Current Visit: Yes Status: Acute Plan to address problem: Patient is a full code. Consults evaluation and recommendations noted and appreciated Plan of care reviewed with the patient and his nurse 02/24/2020 :vascular waiting for medical stabilization specially the renal function Creatinine level slowly trending down, avoid nephrotoxins Nephrology and vascular evaluation noted and appreciated 02/25/2020; mild improvement of renal function, nephrology following Possible revascularization on 02/28/2020 And possible amputation of the toe on 02/29/2020, patient is medically stable Closely monitor the patient and adjust the management as needed History Interval history: I have seen and examined the patient at the bedside Patient feels better no new complaints Vital signs noted Hospitalist Physical - Constitutional Vitals: Temp Pulse Resp BP Pulse Ox 97.6 F 66 18 170/61 92 02/25/20 11:26 02/25/20 11:26 02/25/20 11:26 02/25/20 11:26 02/25/20 11:26 General appearance: Present: no acute distress, well-nourished, obese - EENT Eyes: Present: PERRL, EOM intact - Neck Neck: Present: supple, normal ROM - Respiratory Respiratory effort: normal Respiratory: bilateral: diminished, negative: rales, rhonchi, wheezing - Cardiovascular Rhythm: regular Heart Sounds: Present: S1 & S2 - Extremities Extremities: abnormal (Right fourth toe gangrene) - Abdominal General gastrointestinal: soft, non-tender, non-distended, normal bowel sounds - Integumentary Integumentary: Present: clear, warm - Psychiatric Psychiatric: appropriate mood/affect, cooperative - Neurologic Neurologic: CNII-XII intact, moves all extremities Results - Labs CBC & Chem 7: 02/25/20 05:32 02/25/20 05:32 Labs: Laboratory Last Values WBC 6.8 K/mm3 (4.5-11.0) 02/25/20 05:32 RBC 4.20 M/mm3 (3.65-5.03) 02/25/20 05:32 Hgb 11.9 gm/dl (11.8-15.2) 02/25/20 05:32 Hct 35.8 % (35.5-45.6) 02/25/20 05:32 MCV 85 fl (84-94) 02/25/20 05:32 MCH 28 pg (28-32) 02/25/20 05:32 MCHC 33 % (32-34) 02/25/20 05:32 RDW 13.8 % (13.2-15.2) 02/25/20 05:32 Plt Count 218 K/mm3 (140-440) 02/25/20 05:32 Lymph % (Auto) 18.4 % (13.4-35.0) 02/25/20 05:32 [place] % (Auto) 13.2 % (0.0-7.3) H 02/25/20 05:32 Eos % (Auto) 2.5 % (0.0-4.3) 02/25/20 05:32 Baso % (Auto) 0.9 % (0.0-1.8) 02/25/20 05:32 Lymph # (Auto) 1.2 K/mm3 (1.2-5.4) 02/25/20 05:32 [place] # (Auto) 0.9 K/mm3 (0.0-0.8) H 02/25/20 05:32 Eos # (Auto) 0.2 K/mm3 (0.0-0.4) 02/25/20 05:32 Baso # (Auto) 0.1 K/mm3 (0.0-0.1) 02/25/20 05:32 Seg Neutrophils % 65.0 % (40.0-70.0) 02/25/20 05:32 Seg Neutrophils # 4.4 K/mm3 (1.8-7.7) 02/25/20 05:32 PT 14.2 Sec. (12.2-14.9) 02/25/20 05:32 INR 1.12 (0.87-1.13) 02/25/20 05:32 APTT 36.1 Sec. (24.2-36.6) 02/23/20 18:08 Sodium 136 mmol/L (137-145) L 02/25/20 05:32 Potassium 4.8 mmol/L (3.6-5.0) 02/25/20 05:32 Chloride 106.0 mmol/L (98-107) 02/25/20 05:32 Carbon Dioxide 21 mmol/L (22-30) L 02/25/20 05:32 Anion Gap 14 mmol/L 02/25/20 05:32 BUN 32 mg/dL (9-20) H 02/25/20 05:32 Creatinine 2.3 mg/dL (0.8-1.3) H 02/25/20 05:32 Estimated GFR 29 ml/min 02/25/20 05:32 BUN/Creatinine Ratio 14 % 02/25/20 05:32 Glucose 138 mg/dL (75-100) H 02/25/20 05:32 POC Glucose 173 mg/dL (70-105) H 02/25/20 11:25 Calcium 8.8 mg/dL (8.4-10.2) 02/25/20 05:32 Magnesium 2.20 mg/dL (1.7-2.3) 02/25/20 05:32 Total Bilirubin 0.20 mg/dL (0.1-1.2) 02/25/20 05:32 Direct Bilirubin < 0.2 mg/dL (0-0.2) 02/25/20 05:32 Indirect Bilirubin 0.0 mg/dL 02/25/20 05:32 AST 19 units/L (5-40) 02/25/20 05:32 ALT 26 units/L (7-56) 02/25/20 05:32 Alkaline Phosphatase 86 units/L (35-129) 02/25/20 05:32 Total Protein 6.7 g/dL (6.3-8.2) 02/25/20 05:32 Albumin 2.8 g/dL (3.9-5) L 02/25/20 05:32 Albumin/Globulin Ratio 0.7 % 02/25/20 05:32 Microbiology: Microbiology 02/23/20 19:05 Peripheral/Venous Blood Culture - Preliminary NO GROWTH AFTER 24 HOURS 02/23/20 18:58 Peripheral/Venous Blood Culture - Preliminary NO GROWTH AFTER 24 HOURS Pierre/IV: Voiding Method Toilet IV Catheter Type [Right INT / Saline Lock Forearm] Active Medications - Current Medications Current Medications: Generic Name Dose Route Start Last Admin Trade Name Freq PRN Reason Stop Dose Admin Acetaminophen 650 mg 02/24/20 00:13 Acetaminophen 325 Mg Tab PO Q4H PRN Pain MILD(1-3)/Fever >100.5/HART Dextrose 0 ml 02/24/20 00:13 Dextrose 50% In Water (25gm) 50 Ml Syringe IV Q30MIN PRN Hypoglycemia Protocol Sodium Chloride 1,000 mls @ 75 mls/hr 02/24/20 00:15 02/24/20 21:47 Nacl 0.9% 1000 Ml IV 75 mls/hr DIRECT SHANNON Administration Clindamycin HCl 600 mg in 50 mls @ 100 mls/hr 02/24/20 04:00 02/25/20 12:49 Cleocin 600 Mg/50 Ml IV 100 mls/hr Q8H SHANNON Administration Protocol Insulin Human Lispro 0 unit 02/24/20 07:30 02/25/20 10:04 Insulin Lispro 100 Unit/Ml Vial 3 Ml SUB-Q Not Given ACHS SHANNON Protocol Magnesium Hydroxide 30 ml 02/24/20 00:13 Magnesium Hydroxide (Mom) Oral Liqd Udc PO Q4H PRN Constipation Morphine Sulfate 2 mg 02/24/20 00:13 02/25/20 05:16 Morphine 2 Mg/1 Ml Inj IV 2 mg Q4H PRN Administration Pain, Moderate (4-6) Ondansetron HCl 4 mg 02/24/20 00:13 Ondansetron 4 Mg/2 Ml Inj IV Q8H PRN Nausea And Vomiting Sodium Chloride 10 ml 02/24/20 10:00 02/24/20 21:12 Sodium Chloride 0.9% 10 Ml Flush Syringe IV 10 ml BID SHANNON Administration Sodium Chloride 10 ml 02/24/20 00:13 Sodium Chloride 0.9% 10 Ml Flush Syringe IV PRN PRN LINE FLUSH Nutrition/Malnutrition Assess - Dietary Evaluation Nutrition/Malnutrition Findings: Nutrition Notes Start: 02/24/20 12:11 Freq: Status: Active Protocol: Document 02/24/20 12:11 LM (Rec: 02/24/20 12:15 LM [id number]) Nutrition Notes Need for Assessment generated from: MD Order,Education Weight Status Obese Subjective/Other Information MD consult for diet education. Pt stated eating well with no wt loss. 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 Pt admits to eating fast foods but has a cooler and is open to packing healthier optons from home. Discussed with pt healthy foods he could pack for DM and HTN. Discussed the plate method, portions, heart healthy foods with pt. Pt eager to start making healthy changes. #1 Nutrition Diagnosis Food and nutrition-related knowledge deficit Etiology No prior DM and HTN diet education As Evidenced by Signs and Symptoms Pt requesting diet education Nutrition Intervention Teaching Recipient Patient Learning Readiness Good Teaching Methods Discussion,Handout Response to Teaching Verbalize understanding Education Handouts Provided Carbohydrate Counting for people with DM, HTN hand out Barriers to Learning Environmental RD phone number provided Yes Patient aware of follow up options Yes Revisit per MD consult or patient Sign Off request:
--- NOTE | 2020-02-25 15:29 | Progress Note ---
Assessment and Plan - Patient Problems (1) Dxjkd-[id number] kidney injury Current Visit: Yes Status: Acute Plan to address problem: Acute kidney injury prerenal azotemia versus acute tubular necrosis secondary to sepsis. Kidney function improving with volume repletion. Follow-up electrolytes and renal function (2) Gangrene of toe of right foot Current Visit: Yes Status: Acute Plan to address problem: For revascularization after optimizing renal function (3) Type 2 diabetes mellitus with diabetic nephropathy Current Visit: Yes Status: Acute Plan to address problem: Blood sugar management by primary attending (4) Hypertensive chronic kidney disease with stage 1 through stage 4 chronic kidney disease, or unspecified chronic kidney disease Current Visit: Yes Status: Acute Plan to address problem: Follow-up blood pressure on current medications Subjective Date of service: 02/25/20 Principal diagnosis: Right foot gangrene Interval history: Patient seen lying in bed. No new complaints. Pain has improved. No nausea or vomiting. No chest pain or shortness of breath Objective - Exam Narrative Exam: Obese middle-aged male lying in bed in no acute distress HEENT: NCAT, pink oral mucous membrane Neck: Supple, no venous distention CVS: S1S2 RRR with no murmur, rub or gallop Chest: Clear to auscultation Abdomen: Protuberant, soft, nontender, no organomegaly, bowel sounds are present Extremities: No edema Neuro: Awake, alert no focal deficits - Vital Signs Vital signs: Vital Signs - 12hr 02/25/20 02/25/20 02/25/20 04:44 05:16 07:28 Temperature 98.1 F 97.9 F Pulse Rate 62 65 Respiratory 18 18 18 Rate Blood Pressure 153/70 156/71 O2 Sat by Pulse 94 94 Oximetry 02/25/20 11:26 Temperature 97.6 F Pulse Rate 66 Respiratory 18 Rate Blood Pressure 170/61 O2 Sat by Pulse 92 Oximetry - Lab 02/25/20 05:32 02/25/20 05:32 Most recent lab results Calcium 8.8 mg/dL (8.4-10.2) 02/25/20 05:32 Magnesium 2.20 mg/dL (1.7-2.3) 02/25/20 05:32 Medications & Allergies - Medications Allergies/Adverse Reactions: Allergies No Known Allergies Allergy (Unverified 02/23/20 14:44) Active Medications: Generic Name Dose Route Start Last Admin Trade Name Freq PRN Reason Stop Dose Admin Acetaminophen 650 mg 02/24/20 00:13 Acetaminophen 325 Mg Tab PO Q4H PRN Pain MILD(1-3)/Fever >100.5/HART Dextrose 0 ml 02/24/20 00:13 Dextrose 50% In Water (25gm) 50 Ml Syringe IV Q30MIN PRN Hypoglycemia Protocol Hydralazine HCl 10 mg 02/25/20 14:05 Hydralazine 10 Mg Tab PO Q4H PRN Hypertension Sodium Chloride 1,000 mls @ 75 mls/hr 02/24/20 00:15 02/24/20 21:47 Nacl 0.9% 1000 Ml IV 75 mls/hr DIRECT SHANNON Administration Clindamycin HCl 600 mg in 50 mls @ 100 mls/hr 02/24/20 04:00 02/25/20 12:49 Cleocin 600 Mg/50 Ml IV 100 mls/hr Q8H SHANNON Administration Protocol Insulin Human Lispro 0 unit 02/24/20 07:30 02/25/20 10:04 Insulin Lispro 100 Unit/Ml Vial 3 Ml SUB-Q Not Given ACHS SHANNON Protocol Magnesium Hydroxide 30 ml 02/24/20 00:13 Magnesium Hydroxide (Mom) Oral Liqd Udc PO Q4H PRN Constipation Morphine Sulfate 2 mg 02/24/20 00:13 02/25/20 05:16 Morphine 2 Mg/1 Ml Inj IV 2 mg Q4H PRN Administration Pain, Moderate (4-6) Ondansetron HCl 4 mg 02/24/20 00:13 Ondansetron 4 Mg/2 Ml Inj IV Q8H PRN Nausea And Vomiting Sodium Chloride 10 ml 02/24/20 10:00 02/24/20 21:12 Sodium Chloride 0.9% 10 Ml Flush Syringe IV 10 ml BID SHANNON Administration Sodium Chloride 10 ml 02/24/20 00:13 Sodium Chloride 0.9% 10 Ml Flush Syringe IV PRN PRN LINE FLUSH
[2020-02-25] MEDS: hydrALAZINE 25 MG TAB PO SCH (21:54)
[2020-02-26] MEDS: CLINDAMYCIN 600 MG/50 mL 600 MG/50 ML BAG IV SCH ×3 (04:58→20:00)
[2020-02-26] MEDS: MORPHINE 2 MG/1 ML INJ IV PRN ×3 (05:00→18:44)
[2020-02-26] MEDS: hydrALAZINE 10 MG TAB PO PRN ×2 (05:01→21:57)
[2020-02-26] MEDS: SODIUM CHLORIDE 0.9% 1000 ML 1,000 ML IV SCH ×2 (05:04→13:55)
[2020-02-26] MEDS: hydrALAZINE 25 MG TAB PO SCH ×2 (06:42→13:54)
[2020-02-26 07:15] LABS: Calcium 8.7 mg/dL (8.4-10.2)
[2020-02-26] MEDS: INSULIN LISPRO 100 UNIT/ML VIAL 3 mL SUB-Q SCH ×4 (08:36→22:00)
--- NOTE | 2020-02-26 11:10 | Progress Note ---
Assessment and Plan - Patient Problems (1) Zsixy-[id number] kidney injury Current Visit: Yes Status: Acute Plan to address problem: Acute kidney injury prerenal azotemia versus acute tubular necrosis secondary to sepsis. Kidney function improving with volume repletion. Follow-up electrolytes and renal function (2) Gangrene of toe of right foot Current Visit: Yes Status: Acute Plan to address problem: For revascularization after optimizing renal function (3) Type 2 diabetes mellitus with diabetic nephropathy Current Visit: Yes Status: Acute Plan to address problem: Blood sugar management by primary attending (4) Hypertensive chronic kidney disease with stage 1 through stage 4 chronic kidney disease, or unspecified chronic kidney disease Current Visit: Yes Status: Acute Plan to address problem: Follow-up blood pressure on current medications Subjective Date of service: 02/26/20 Principal diagnosis: Right foot gangrene Interval history: Patient seen lying in bed. No new complaints. Pain has improved. No nausea or vomiting. No chest pain or shortness of breath Objective - Exam Narrative Exam: Obese middle-aged male lying in bed in no acute distress HEENT: NCAT, pink oral mucous membrane Neck: Supple, no venous distention CVS: S1S2 RRR with no murmur, rub or gallop Chest: Clear to auscultation Abdomen: Protuberant, soft, nontender, no organomegaly, bowel sounds are present Extremities: No edema, dressing intact Neuro: Awake, alert no focal deficits - Vital Signs Vital signs: Vital Signs - 12hr 02/25/20 02/26/20 02/26/20 23:37 04:25 05:01 Temperature 98.4 F 98.3 F Pulse Rate 71 69 Respiratory 14 14 Rate Blood Pressure 151/57 174/73 174/73 O2 Sat by Pulse 91 94 Oximetry 02/26/20 02/26/20 02/26/20 06:25 06:42 07:07 Temperature 98.7 F Pulse Rate 71 65 Respiratory 16 20 Rate Blood Pressure 166/75 166/75 175/74 O2 Sat by Pulse 92 93 Oximetry - Lab 02/25/20 05:32 02/26/20 06:31 Most recent lab results Calcium 8.7 mg/dL (8.4-10.2) 02/26/20 06:31 Magnesium 2.20 mg/dL (1.7-2.3) 02/25/20 05:32 Medications & Allergies - Medications Allergies/Adverse Reactions: Allergies No Known Allergies Allergy (Unverified 02/23/20 14:44) Active Medications: Generic Name Dose Route Start Last Admin Trade Name [place] PRN Reason Stop Dose Admin Acetaminophen 650 mg 02/24/20 00:13 Acetaminophen 325 Mg Tab PO Q4H PRN Pain MILD(1-3)/Fever >100.5/HART Dextrose 0 ml 02/24/20 00:13 Dextrose 50% In Water (25gm) 50 Ml Syringe IV Q30MIN PRN Hypoglycemia Protocol Hydralazine HCl 10 mg 02/25/20 14:05 02/26/20 05:01 Hydralazine 10 Mg Tab PO 10 mg Q4H PRN Administration Hypertension Hydralazine HCl 25 mg 02/25/20 22:00 02/26/20 06:42 Hydralazine 25 Mg Tab PO 25 mg Q8HR SHANNON Administration Sodium Chloride 1,000 mls @ 75 mls/hr 02/24/20 00:15 02/26/20 05:04 Nacl 0.9% 1000 Ml IV 75 mls/hr DIRECT SHANNON Administration Clindamycin HCl 600 mg in 50 mls @ 100 mls/hr 02/24/20 04:00 02/26/20 04:58 Cleocin 600 Mg/50 Ml IV 100 mls/hr Q8H SHANNON Administration Protocol Insulin Human Lispro 0 unit 02/24/20 07:30 02/26/20 08:36 Insulin Lispro 100 Unit/Ml Vial 3 Ml SUB-Q 2 unit ACHS SHANNON Administration Protocol Magnesium Hydroxide 30 ml 02/24/20 00:13 Magnesium Hydroxide (Mom) Oral Liqd Udc PO Q4H PRN Constipation Morphine Sulfate 2 mg 02/24/20 00:13 02/26/20 05:00 Morphine 2 Mg/1 Ml Inj IV 2 mg Q4H PRN Administration Pain, Moderate (4-6) Ondansetron HCl 4 mg 02/24/20 00:13 Ondansetron 4 Mg/2 Ml Inj IV Q8H PRN Nausea And Vomiting Sodium Chloride 10 ml 02/24/20 10:00 02/25/20 21:59 Sodium Chloride 0.9% 10 Ml Flush Syringe IV 10 ml BID SHANNON Administration Sodium Chloride 10 ml 02/24/20 00:13 Sodium Chloride 0.9% 10 Ml Flush Syringe IV PRN PRN LINE FLUSH
--- NOTE | 2020-02-26 12:31 | Progress Note ---
Assessment and Plan Assessment and plan: -- Gangrene of right fourth toe Current Visit: Yes Status: Acute Plan to address problem: Patient commenced on empiric IV antibiotics. Vascular : evaluated the patient and recommend the patient need to be medically optimized with a plan towards revascularization of his right leg on Friday02/28/2020 and potentially amputation of his fourth toe on Friday02/29/2020. Surgery:seen the patient, recommend wound care and amputation next week After 02/29/2020 when he is available, would also recommend earlier intervention By vascular as needed -- Hypertension Current Visit: Yes Status: Acute Plan to address problem: We resume routine home medications and monitor vital signs closely. --Arterial insufficiency of lower extremity Current Visit: Yes Status: Acute Plan to address problem: Patient to be evaluated by vascular surgery. --Acute kidney injury/vasomotor nephropathy Current Visit: Yes Status: Acute Plan to address problem: Nephrology following Closely monitor renal function avoid nephrotoxins --Type II diabetes mellitus Current Visit: Yes Status: Acute Plan to address problem: Accu-Chek sliding scale coverage ADA diet Long-acting insulin as needed --Severe malnutrition/hypoalbuminemia Current Visit: Yes Status: Acute Plan to address problem: Nutrition supplements, nutrition consult Nutrition supplements, nutrition consult And supportive care --DVT prophylaxis Current Visit: Yes Status: Acute. Plan to address problem: Patient placed on sequential compression device. We will hold off anticoagulation in view of possible surgery. --Full code status Current Visit: Yes Status: Acute Plan to address problem: Patient is a full code. Consults evaluation and recommendations noted and appreciated Plan of care reviewed with the patient and his nurse 02/24/2020 :vascular waiting for medical stabilization specially the renal function Creatinine level slowly trending down, avoid nephrotoxins Nephrology and vascular evaluation noted and appreciated 02/25/2020; mild improvement of renal function, nephrology following Possible revascularization on 02/28/2020 And possible amputation of the toe on 02/29/2020, patient is medically stable 02/26/2020; renal function significantly improved creatinine today is 1.6, will continue IV hydration Avoid nephrotoxins, possible revascularization procedure on 02/28/2020 Plan of care reviewed with the patient and his nurse Closely monitor the patient and adjust the management as needed History Interval history: I have seen and examined the patient at the bedside Patient's chart and medications reviewed Patient renal function significantly improved If it continues to trend down to normal level Patient may have revascularization procedure on 02/28/2020 Patient has no new complaints Vital signs noted Hospitalist Physical - Constitutional Vitals: Temp Pulse Resp BP Pulse Ox 98.7 F 65 20 175/74 93 02/26/20 07:07 02/26/20 07:07 02/26/20 07:07 02/26/20 07:07 02/26/20 07:07 General appearance: Present: no acute distress, well-nourished, obese - EENT Eyes: Present: PERRL, EOM intact - Neck Neck: Present: supple, normal ROM - Respiratory Respiratory effort: normal Respiratory: bilateral: diminished, negative: rales, rhonchi, wheezing - Cardiovascular Rhythm: regular Heart Sounds: Present: S1 & S2 - Extremities Extremities: no ischemia, No edema - Abdominal General gastrointestinal: soft, non-tender, non-distended, normal bowel sounds - Integumentary Integumentary: Present: clear, warm - Psychiatric Psychiatric: appropriate mood/affect, cooperative - Neurologic Neurologic: moves all extremities Results - Labs CBC & Chem 7: 02/25/20 05:32 02/26/20 06:31 Labs: Laboratory Last Values WBC 6.8 K/mm3 (4.5-11.0) 02/25/20 05:32 RBC 4.20 M/mm3 (3.65-5.03) 02/25/20 05:32 Hgb 11.9 gm/dl (11.8-15.2) 02/25/20 05:32 Hct 35.8 % (35.5-45.6) 02/25/20 05:32 MCV 85 fl (84-94) 02/25/20 05:32 MCH 28 pg (28-32) 02/25/20 05:32 MCHC 33 % (32-34) 02/25/20 05:32 RDW 13.8 % (13.2-15.2) 02/25/20 05:32 Plt Count 218 K/mm3 (140-440) 02/25/20 05:32 Lymph % (Auto) 18.4 % (13.4-35.0) 02/25/20 05:32 [place] % (Auto) 13.2 % (0.0-7.3) H 02/25/20 05:32 Eos % (Auto) 2.5 % (0.0-4.3) 02/25/20 05:32 Baso % (Auto) 0.9 % (0.0-1.8) 02/25/20 05:32 Lymph # (Auto) 1.2 K/mm3 (1.2-5.4) 02/25/20 05:32 [place] # (Auto) 0.9 K/mm3 (0.0-0.8) H 02/25/20 05:32 Eos # (Auto) 0.2 K/mm3 (0.0-0.4) 02/25/20 05:32 Baso # (Auto) 0.1 K/mm3 (0.0-0.1) 02/25/20 05:32 Seg Neutrophils % 65.0 % (40.0-70.0) 02/25/20 05:32 Seg Neutrophils # 4.4 K/mm3 (1.8-7.7) 02/25/20 05:32 PT 14.2 Sec. (12.2-14.9) 02/25/20 05:32 INR 1.12 (0.87-1.13) 02/25/20 05:32 APTT 36.1 Sec. (24.2-36.6) 02/23/20 18:08 Sodium 136 mmol/L (137-145) L 02/26/20 06:31 Potassium 4.8 mmol/L (3.6-5.0) 02/26/20 06:31 Chloride 106.8 mmol/L (98-107) 02/26/20 06:31 Carbon Dioxide 23 mmol/L (22-30) 02/26/20 06:31 Anion Gap 11 mmol/L 02/26/20 06:31 BUN 24 mg/dL (9-20) H 02/26/20 06:31 Creatinine 1.9 mg/dL (0.8-1.3) H 02/26/20 06:31 Estimated GFR 36 ml/min 02/26/20 06:31 BUN/Creatinine Ratio 13 % 02/26/20 06:31 Glucose 214 mg/dL (75-100) H 02/26/20 06:31 POC Glucose 214 mg/dL (70-105) H 02/26/20 11:10 Hemoglobin A1c 9.8 % (4-6) H 02/26/20 06:31 Calcium 8.7 mg/dL (8.4-10.2) 02/26/20 06:31 Magnesium 2.20 mg/dL (1.7-2.3) 02/25/20 05:32 Total Bilirubin 0.20 mg/dL (0.1-1.2) 02/25/20 05:32 Direct Bilirubin < 0.2 mg/dL (0-0.2) 02/25/20 05:32 Indirect Bilirubin 0.0 mg/dL 02/25/20 05:32 AST 19 units/L (5-40) 02/25/20 05:32 ALT 26 units/L (7-56) 02/25/20 05:32 Alkaline Phosphatase 86 units/L (35-129) 02/25/20 05:32 Total Protein 6.7 g/dL (6.3-8.2) 02/25/20 05:32 Albumin 2.8 g/dL (3.9-5) L 02/25/20 05:32 Albumin/Globulin Ratio 0.7 % 02/25/20 05:32 Microbiology: Microbiology 02/23/20 19:05 Peripheral/Venous Blood Culture - Preliminary NO GROWTH AFTER 48 HOURS 02/23/20 18:58 Peripheral/Venous Blood Culture - Preliminary NO GROWTH AFTER 48 HOURS Pierre/IV: Voiding Method Toilet IV Catheter Type [Right INT / Saline Lock Forearm] Active Medications - Current Medications Current Medications: Generic Name Dose Route Start Last Admin Trade Name Freq PRN Reason Stop Dose Admin Acetaminophen 650 mg 02/24/20 00:13 Acetaminophen 325 Mg Tab PO Q4H PRN Pain MILD(1-3)/Fever >100.5/HART Dextrose 0 ml 02/24/20 00:13 Dextrose 50% In Water (25gm) 50 Ml Syringe IV Q30MIN PRN Hypoglycemia Protocol Hydralazine HCl 10 mg 02/25/20 14:05 02/26/20 05:01 Hydralazine 10 Mg Tab PO 10 mg Q4H PRN Administration Hypertension Hydralazine HCl 25 mg 02/25/20 22:00 02/26/20 06:42 Hydralazine 25 Mg Tab PO 25 mg Q8HR SHANNON Administration Sodium Chloride 1,000 mls @ 75 mls/hr 02/24/20 00:15 02/26/20 05:04 Nacl 0.9% 1000 Ml IV 75 mls/hr DIRECT SHANNON Administration Clindamycin HCl 600 mg in 50 mls @ 100 mls/hr 02/24/20 04:00 02/26/20 11:56 Cleocin 600 Mg/50 Ml IV 100 mls/hr Q8H SHANNON Administration Protocol Insulin Human Lispro 0 unit 02/24/20 07:30 02/26/20 08:36 Insulin Lispro 100 Unit/Ml Vial 3 Ml SUB-Q 2 unit ACHS SHANNON Administration Protocol Magnesium Hydroxide 30 ml 02/24/20 00:13 Magnesium Hydroxide (Mom) Oral Liqd Udc PO Q4H PRN Constipation Morphine Sulfate 2 mg 02/24/20 00:13 02/26/20 05:00 Morphine 2 Mg/1 Ml Inj IV 2 mg Q4H PRN Administration Pain, Moderate (4-6) Ondansetron HCl 4 mg 02/24/20 00:13 Ondansetron 4 Mg/2 Ml Inj IV Q8H PRN Nausea And Vomiting Sodium Chloride 10 ml 02/24/20 10:00 02/26/20 11:57 Sodium Chloride 0.9% 10 Ml Flush Syringe IV 10 ml BID SHANNON Administration Sodium Chloride 10 ml 02/24/20 00:13 Sodium Chloride 0.9% 10 Ml Flush Syringe IV PRN PRN LINE FLUSH Nutrition/Malnutrition Assess - Dietary Evaluation Nutrition/Malnutrition Findings: Nutrition Notes Start: 02/24/20 12:11 Freq: Status: Active Protocol: Document 02/24/20 12:11 LM (Rec: 02/24/20 12:15 LM [id number]) Nutrition Notes Need for Assessment generated from: MD Order,Education Weight Status Obese Subjective/Other Information MD consult for diet education. Pt stated eating well with no wt loss. 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 Pt admits to eating fast foods but has a cooler and is open to packing healthier optons from home. Discussed with pt healthy foods he could pack for DM and HTN. Discussed the plate method, portions, heart healthy foods with pt. Pt eager to start making healthy changes. #1 Nutrition Diagnosis Food and nutrition-related knowledge deficit Etiology No prior DM and HTN diet education As Evidenced by Signs and Symptoms Pt requesting diet education Nutrition Intervention Teaching Recipient Patient Learning Readiness Good Teaching Methods Discussion,Handout Response to Teaching Verbalize understanding Education Handouts Provided Carbohydrate Counting for people with DM, HTN hand out Barriers to Learning Environmental RD phone number provided Yes Patient aware of follow up options Yes Revisit per MD consult or patient Sign Off request:
[2020-02-26] MEDS: INSULIN NPH/REGULAR 70/30 INJ SUB-Q SCH (16:47)
[2020-02-27] MEDS: hydrALAZINE 25 MG TAB PO SCH ×4 (03:44→21:41)
[2020-02-27] MEDS: CLINDAMYCIN 600 MG/50 mL 600 MG/50 ML BAG IV SCH ×3 (04:00→21:28)
[2020-02-27 06:50] LABS: Calcium 9.2 mg/dL (8.4-10.2)
[2020-02-27] MEDS: INSULIN LISPRO 100 UNIT/ML VIAL 3 mL SUB-Q SCH ×4 (08:05→22:18)
[2020-02-27] MEDS: INSULIN NPH/REGULAR 70/30 INJ SUB-Q SCH ×2 (08:05→16:51)
--- NOTE | 2020-02-27 09:55 | Progress Note ---
Assessment and Plan Patient with PVD with right toe gangrene. He is scheduled for revascularization procedure tomorrow. The patient will then need to undergo digital amputation on Friday. Subjective Date of service: 02/27/20 Principal diagnosis: Right foot gangrene Interval history: Patient with a history of acute renal failure, digital gangrene. His renal fail ure is improving his creatinine today is 1.6. Patient has no specific complaints. Objective - Constitutional Vitals: Vital Signs - 12hr 02/26/20 02/26/20 02/27/20 21:57 22:36 03:44 Temperature 98.0 F Pulse Rate 75 74 75 Respiratory 18 Rate Blood Pressure 172/66 166/62 172/66 O2 Sat by Pulse 94 Oximetry 02/27/20 02/27/20 05:44 05:54 Temperature 97.9 F Pulse Rate 79 75 Respiratory 18 Rate Blood Pressure 171/58 172/68 O2 Sat by Pulse 94 Oximetry General appearance: Present: no acute distress - EENT Eyes: EOM intact ENT: hearing intact - Neck Neck: supple - Respiratory Respiratory effort: normal Extremities: abnormal - Gastrointestinal General gastrointestinal: Present: deferred - Genitourinary Male genitourinary: deferred - Psychiatric Psychiatric: cooperative - Labs CBC & Chem 7: 02/25/20 05:32 02/27/20 05:57 Labs: Abnormal lab results 02/26/20 02/26/20 02/26/20 Range/Units 11:10 16:08 21:36 Creatinine (0.8-1.3) mg/dL Glucose (75-100) mg/dL POC Glucose 214 H 222 H 193 H (70-105) mg/dL 02/27/20 02/27/20 Range/Units 05:57 07:12 Creatinine 1.6 H (0.8-1.3) mg/dL Glucose 181 H (75-100) mg/dL POC Glucose 173 H (70-105) mg/dL Medications & Allergies - Medications Allergies/Adverse Reactions: Allergies No Known Allergies Allergy (Unverified 02/23/20 14:44) Active Medications: Generic Name Dose Route Start Last Admin Trade Name Freq PRN Reason Stop Dose Admin Acetaminophen 650 mg 02/24/20 00:13 Acetaminophen 325 Mg Tab PO Q4H PRN Pain MILD(1-3)/Fever >100.5/HART Dextrose 0 ml 02/24/20 00:13 Dextrose 50% In Water (25gm) 50 Ml Syringe IV Q30MIN PRN Hypoglycemia Protocol Hydralazine HCl 10 mg 02/25/20 14:05 02/26/20 21:57 Hydralazine 10 Mg Tab PO 10 mg Q4H PRN Administration Hypertension Hydralazine HCl 25 mg 02/25/20 22:00 02/27/20 05:54 Hydralazine 25 Mg Tab PO 25 mg Q8HR SHANNON Administration Sodium Chloride 1,000 mls @ 75 mls/hr 02/24/20 00:15 02/26/20 13:55 Nacl 0.9% 1000 Ml IV 75 mls/hr DIRECT SHANNON Administration Clindamycin HCl 600 mg in 50 mls @ 100 mls/hr 02/24/20 04:00 02/27/20 04:00 Cleocin 600 Mg/50 Ml IV 100 mls/hr Q8H SHANNON Administration Protocol Insulin Human Isoph/Insulin Regular 5 unit 02/26/20 17:00 02/27/20 08:05 Insulin Nph/Regular 70/30 Inj SUB-Q 5 unit BIDDIAB SHANNON Administration Insulin Human Lispro 0 unit 02/24/20 07:30 02/27/20 08:05 Insulin Lispro 100 Unit/Ml Vial 3 Ml SUB-Q 2 unit ACHS SHANNON Administration Protocol Magnesium Hydroxide 30 ml 02/24/20 00:13 Magnesium Hydroxide (Mom) Oral Liqd Udc PO Q4H PRN Constipation Morphine Sulfate 2 mg 02/24/20 00:13 02/26/20 18:44 Morphine 2 Mg/1 Ml Inj IV 2 mg Q4H PRN Administration Pain, Moderate (4-6) Ondansetron HCl 4 mg 02/24/20 00:13 Ondansetron 4 Mg/2 Ml Inj IV Q8H PRN Nausea And Vomiting Sodium Chloride 10 ml 02/24/20 10:00 02/26/20 21:59 Sodium Chloride 0.9% 10 Ml Flush Syringe IV 10 ml BID SHANNON Administration Sodium Chloride 10 ml 02/24/20 00:13 Sodium Chloride 0.9% 10 Ml Flush Syringe IV PRN PRN LINE FLUSH
[2020-02-27] MEDS: MORPHINE 2 MG/1 ML INJ IV PRN ×2 (13:56→21:41)
--- NOTE | 2020-02-27 14:15 | Progress Note ---
Assessment and Plan - Patient Problems (1) Aubdp-[id number]-hyvhwnd kidney injury Current Visit: Yes Status: Acute Plan to address problem: Acute kidney injury prerenal azotemia versus acute tubular necrosis secondary to sepsis. Kidney function improving with volume repletion. Follow-up electrolytes and renal function (2) Gangrene of toe of right foot Current Visit: Yes Status: Acute Plan to address problem: For revascularization in the morning. Discussed benefits and risk and patient is willing to proceed with revascularization (3) Type 2 diabetes mellitus with diabetic nephropathy Current Visit: Yes Status: Acute Plan to address problem: Blood sugar management by primary attending (4) Hypertensive chronic kidney disease with stage 1 through stage 4 chronic kidney disease, or unspecified chronic kidney disease Current Visit: Yes Status: Acute Plan to address problem: Agree with hydralazine. I will also add low-dose metoprolol with parameters to hold. Follow-up blood pressure on adjusted medications Subjective Date of service: 02/27/20 Principal diagnosis: Right foot gangrene Interval history: Patient seen lying in bed. No new complaints. Blood pressure is elevated. Pain has improved. No nausea or vomiting. No chest pain or shortness of breath Objective - Exam Narrative Exam: Obese middle-aged male lying in bed in no acute distress HEENT: NCAT, pink oral mucous membrane Neck: Supple, no venous distention CVS: S1S2 RRR with no murmur, rub or gallop Chest: Clear to auscultation Abdomen: Protuberant, soft, nontender, no organomegaly, bowel sounds are present Extremities: Mild edema, dressing intact Neuro: Awake, alert no focal deficits - Vital Signs Vital signs: Vital Signs - 12hr 02/27/20 02/27/20 02/27/20 03:44 05:44 05:54 Temperature 97.9 F Pulse Rate 75 79 75 Respiratory 18 Rate Blood Pressure 172/66 171/58 172/68 O2 Sat by Pulse 94 Oximetry 02/27/20 02/27/20 02/27/20 07:13 11:27 13:49 Temperature 97.3 F L 98.3 F 98.4 F Pulse Rate 74 77 80 Respiratory 20 18 19 Rate Blood Pressure 184/86 197/91 151/87 O2 Sat by Pulse 95 92 97 Oximetry 02/27/20 13:55 Temperature Pulse Rate 80 Respiratory Rate Blood Pressure 151/87 O2 Sat by Pulse Oximetry - Lab 02/25/20 05:32 02/27/20 05:57 Most recent lab results Calcium 9.2 mg/dL (8.4-10.2) 02/27/20 05:57 Magnesium 2.20 mg/dL (1.7-2.3) 02/25/20 05:32 Medications & Allergies - Medications Allergies/Adverse Reactions: Allergies No Known Allergies Allergy (Unverified 02/23/20 14:44) Active Medications: Generic Name Dose Route Start Last Admin Trade Name Freq PRN Reason Stop Dose Admin Acetaminophen 650 mg 02/24/20 00:13 Acetaminophen 325 Mg Tab PO Q4H PRN Pain MILD(1-3)/Fever >100.5/HART Dextrose 0 ml 02/24/20 00:13 Dextrose 50% In Water (25gm) 50 Ml Syringe IV Q30MIN PRN Hypoglycemia Protocol Hydralazine HCl 50 mg 02/27/20 14:00 02/27/20 13:55 Hydralazine 25 Mg Tab PO 50 mg Q8HR SHANNON Administration Sodium Chloride 1,000 mls @ 75 mls/hr 02/24/20 00:15 02/26/20 13:55 Nacl 0.9% 1000 Ml IV 75 mls/hr DIRECT SHANNON Administration Clindamycin HCl 600 mg in 50 mls @ 100 mls/hr 02/24/20 04:00 02/27/20 11:49 Cleocin 600 Mg/50 Ml IV 100 mls/hr Q8H SHANNON Administration Protocol Insulin Human Isoph/Insulin Regular 5 unit 02/26/20 17:00 02/27/20 08:05 Insulin Nph/Regular 70/30 Inj SUB-Q 5 unit BIDDIAB SHANNON Administration Insulin Human Lispro 0 unit 02/24/20 07:30 02/27/20 11:49 Insulin Lispro 100 Unit/Ml Vial 3 Ml SUB-Q 3 unit ACHS SHANNON Administration Protocol Magnesium Hydroxide 30 ml 02/24/20 00:13 Magnesium Hydroxide (Mom) Oral Liqd Udc PO Q4H PRN Constipation Morphine Sulfate 2 mg 02/24/20 00:13 02/27/20 13:56 Morphine 2 Mg/1 Ml Inj IV 2 mg Q4H PRN Administration Pain, Moderate (4-6) Ondansetron HCl 4 mg 02/24/20 00:13 Ondansetron 4 Mg/2 Ml Inj IV Q8H PRN Nausea And Vomiting Sodium Chloride 10 ml 02/24/20 10:00 02/27/20 11:50 Sodium Chloride 0.9% 10 Ml Flush Syringe IV 10 ml BID SHANNON Administration Sodium Chloride 10 ml 02/24/20 00:13 Sodium Chloride 0.9% 10 Ml Flush Syringe IV PRN PRN LINE FLUSH
[2020-02-27] MEDS ORDERED: METOPROLOL TARTRATE 25 MG TAB PO SCH (15:00)
--- NOTE | 2020-02-27 16:33 | Progress Note ---
Assessment and Plan Assessment and plan: -- Gangrene of right fourth toe Current Visit: Yes Status: Acute Plan to address problem: Patient commenced on empiric IV antibiotics. Vascular : evaluated the patient and recommend the patient need to be medically optimized with a plan towards revascularization of his right leg on Friday02/28/2020 and potentially amputation of his fourth toe on Friday02/29/2020. Surgery:seen the patient, recommend wound care and amputation next week After 02/29/2020 when he is available, would also recommend earlier intervention By vascular as needed -- Hypertension Current Visit: Yes Status: Acute Plan to address problem: We resume routine home medications and monitor vital signs closely. --Arterial insufficiency of lower extremity Current Visit: Yes Status: Acute Plan to address problem: Patient to be evaluated by vascular surgery. --Acute kidney injury/vasomotor nephropathy Current Visit: Yes Status: Acute Plan to address problem: Nephrology following Significant improvement of creatinine level, today 1.6 Patient is receiving IV hopefully it will come down more by tomorrow Closely monitor renal function avoid nephrotoxins --Type II diabetes mellitus Current Visit: Yes Status: Acute Plan to address problem: Accu-Chek sliding scale coverage ADA diet Long-acting insulin as needed --Severe malnutrition/hypoalbuminemia Current Visit: Yes Status: Acute Plan to address problem: Nutrition supplements, nutrition consult Nutrition supplements, nutrition consult And supportive care --DVT prophylaxis Current Visit: Yes Status: Acute. Plan to address problem: Patient placed on sequential compression device. We will hold off anticoagulation in view of possible surgery. --Full code status Current Visit: Yes Status: Acute Plan to address problem: Patient is a full code. Consults evaluation and recommendations noted and appreciated Plan of care reviewed with the patient and his nurse 02/24/2020 :vascular waiting for medical stabilization specially the renal function Creatinine level slowly trending down, avoid nephrotoxins Nephrology and vascular evaluation noted and appreciated 02/25/2020; mild improvement of renal function, nephrology following Possible revascularization on 02/28/2020 And possible amputation of the toe on 02/29/2020, patient is medically stable 02/26/2020; renal function significantly improved creatinine today is 1.6, will continue IV hydration Avoid nephrotoxins, possible revascularization procedure on 02/28/2020 Plan of care reviewed with the patient and his nurse Closely monitor the patient and adjust the management as needed History Interval history: I have seen the patient in his room Patient is comfortable, sleeping easily awakens vital signs noted Mild elevation of blood pressure Hospitalist Physical - Constitutional Vitals: Temp Pulse Resp BP Pulse Ox 98.4 F 80 19 151/87 97 02/27/20 13:49 02/27/20 13:55 02/27/20 13:49 02/27/20 13:55 02/27/20 13:49 General appearance: Present: no acute distress, well-nourished, obese - EENT Eyes: Present: PERRL, EOM intact - Neck Neck: Present: supple, normal ROM - Respiratory Respiratory effort: normal Respiratory: bilateral: diminished, rhonchi, negative: rales, wheezing - Cardiovascular Rhythm: regular Heart Sounds: Present: S1 & S2 - Extremities Extremities: no ischemia, No edema, abnormal (Toe gangrene) Extremity abnormal: other (Distal toe gangrene) - Abdominal General gastrointestinal: soft, non-tender, non-distended - Integumentary Integumentary: Present: clear, warm - Psychiatric Psychiatric: appropriate mood/affect, cooperative - Neurologic Neurologic: moves all extremities Results - Labs CBC & Chem 7: 02/25/20 05:32 02/27/20 05:57 Labs: Laboratory Last Values WBC 6.8 K/mm3 (4.5-11.0) 02/25/20 05:32 RBC 4.20 M/mm3 (3.65-5.03) 02/25/20 05:32 Hgb 11.9 gm/dl (11.8-15.2) 02/25/20 05:32 Hct 35.8 % (35.5-45.6) 02/25/20 05:32 MCV 85 fl (84-94) 02/25/20 05:32 MCH 28 pg (28-32) 02/25/20 05:32 MCHC 33 % (32-34) 02/25/20 05:32 RDW 13.8 % (13.2-15.2) 02/25/20 05:32 Plt Count 218 K/mm3 (140-440) 02/25/20 05:32 Lymph % (Auto) 18.4 % (13.4-35.0) 02/25/20 05:32 Stewart % (Auto) 13.2 % (0.0-7.3) H 02/25/20 05:32 Eos % (Auto) 2.5 % (0.0-4.3) 02/25/20 05:32 Baso % (Auto) 0.9 % (0.0-1.8) 02/25/20 05:32 Lymph # (Auto) 1.2 K/mm3 (1.2-5.4) 02/25/20 05:32 Stewart # (Auto) 0.9 K/mm3 (0.0-0.8) H 02/25/20 05:32 Eos # (Auto) 0.2 K/mm3 (0.0-0.4) 02/25/20 05:32 Baso # (Auto) 0.1 K/mm3 (0.0-0.1) 02/25/20 05:32 Seg Neutrophils % 65.0 % (40.0-70.0) 02/25/20 05:32 Seg Neutrophils # 4.4 K/mm3 (1.8-7.7) 02/25/20 05:32 PT 14.2 Sec. (12.2-14.9) 02/25/20 05:32 INR 1.12 (0.87-1.13) 02/25/20 05:32 APTT 36.1 Sec. (24.2-36.6) 02/23/20 18:08 Sodium 137 mmol/L (137-145) 02/27/20 05:57 Potassium 4.9 mmol/L (3.6-5.0) 02/27/20 05:57 Chloride 105.1 mmol/L (98-107) 02/27/20 05:57 Carbon Dioxide 24 mmol/L (22-30) 02/27/20 05:57 Anion Gap 13 mmol/L 02/27/20 05:57 BUN 17 mg/dL (9-20) 02/27/20 05:57 Creatinine 1.6 mg/dL (0.8-1.3) H 02/27/20 05:57 Estimated GFR 43 ml/min 02/27/20 05:57 BUN/Creatinine Ratio 11 % 02/27/20 05:57 Glucose 181 mg/dL (75-100) H 02/27/20 05:57 POC Glucose 240 mg/dL (70-105) H 02/27/20 16:06 Hemoglobin A1c 9.8 % (4-6) H 02/26/20 06:31 Calcium 9.2 mg/dL (8.4-10.2) 02/27/20 05:57 Magnesium 2.20 mg/dL (1.7-2.3) 02/25/20 05:32 Total Bilirubin 0.20 mg/dL (0.1-1.2) 02/25/20 05:32 Direct Bilirubin < 0.2 mg/dL (0-0.2) 02/25/20 05:32 Indirect Bilirubin 0.0 mg/dL 02/25/20 05:32 AST 19 units/L (5-40) 02/25/20 05:32 ALT 26 units/L (7-56) 02/25/20 05:32 Alkaline Phosphatase 86 units/L (35-129) 02/25/20 05:32 Total Protein 6.7 g/dL (6.3-8.2) 02/25/20 05:32 Albumin 2.8 g/dL (3.9-5) L 02/25/20 05:32 Albumin/Globulin Ratio 0.7 % 02/25/20 05:32 Microbiology: Microbiology 02/23/20 19:05 Peripheral/Venous Blood Culture - Preliminary NO GROWTH AFTER 72 HOURS 02/23/20 18:58 Peripheral/Venous Blood Culture - Preliminary NO GROWTH AFTER 72 HOURS Pierre/IV: Voiding Method Toilet IV Catheter Type [Left Forearm INT / Saline Lock ] IV Catheter Type [Right INT / Saline Lock Forearm] Active Medications - Current Medications Current Medications: Generic Name Dose Route Start Last Admin Trade Name Freq PRN Reason Stop Dose Admin Acetaminophen 650 mg 02/24/20 00:13 Acetaminophen 325 Mg Tab PO Q4H PRN Pain MILD(1-3)/Fever >100.5/HART Dextrose 0 ml 02/24/20 00:13 Dextrose 50% In Water (25gm) 50 Ml Syringe IV Q30MIN PRN Hypoglycemia Protocol Hydralazine HCl 50 mg 02/27/20 14:00 02/27/20 13:55 Hydralazine 25 Mg Tab PO 50 mg Q8HR SHANNON Administration Sodium Chloride 1,000 mls @ 50 mls/hr 02/24/20 00:15 02/26/20 13:55 Nacl 0.9% 1000 Ml IV 75 mls/hr DIRECT SHANNON Administration Clindamycin HCl 600 mg in 50 mls @ 100 mls/hr 02/24/20 04:00 02/27/20 11:49 Cleocin 600 Mg/50 Ml IV 100 mls/hr Q8H SHANNON Administration Protocol Insulin Human Isoph/Insulin Regular 5 unit 02/26/20 17:00 02/27/20 08:05 Insulin Nph/Regular 70/30 Inj SUB-Q 5 unit BIDDIAB SHANNON Administration Insulin Human Lispro 0 unit 02/24/20 07:30 02/27/20 11:49 Insulin Lispro 100 Unit/Ml Vial 3 Ml SUB-Q 3 unit ACHS SHANNON Administration Protocol Magnesium Hydroxide 30 ml 02/24/20 00:13 Magnesium Hydroxide (Mom) Oral Liqd Udc PO Q4H PRN Constipation Metoprolol Tartrate 25 mg 02/27/20 22:00 Metoprolol Tartrate 25 Mg Tab PO BID SHANNON Morphine Sulfate 2 mg 02/24/20 00:13 02/27/20 13:56 Morphine 2 Mg/1 Ml Inj IV 2 mg Q4H PRN Administration Pain, Moderate (4-6) Ondansetron HCl 4 mg 02/24/20 00:13 Ondansetron 4 Mg/2 Ml Inj IV Q8H PRN Nausea And Vomiting Sodium Chloride 10 ml 02/24/20 10:00 02/27/20 11:50 Sodium Chloride 0.9% 10 Ml Flush Syringe IV 10 ml BID SHANNON Administration Sodium Chloride 10 ml 02/24/20 00:13 Sodium Chloride 0.9% 10 Ml Flush Syringe IV PRN PRN LINE FLUSH Nutrition/Malnutrition Assess - Dietary Evaluation Nutrition/Malnutrition Findings: Nutrition Notes Start: 02/24/20 12 :11 Freq: Status: Active Protocol: Document 02/24/20 12:11 LM (Rec: 02/24/20 12:15 LM [id number]) Nutrition Notes Need for Assessment generated from: MD Order,Education Weight Status Obese Subjective/Other Information MD consult for diet education. Pt stated eating well with no wt loss. 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 Pt admits to eating fast foods but has a cooler and is open to packing healthier optons from home. Discussed with pt healthy foods he could pack for DM and HTN. Discussed the plate method, portions, heart healthy foods with pt. Pt eager to start making healthy changes. #1 Nutrition Diagnosis Food and nutrition-related knowledge deficit Etiology No prior DM and HTN diet education As Evidenced by Signs and Symptoms Pt requesting diet education Nutrition Intervention Teaching Recipient Patient Learning Readiness Good Teaching Methods Discussion,Handout Response to Teaching Verbalize understanding Education Handouts Provided Carbohydrate Counting for people with DM, HTN hand out Barriers to Learning Environmental RD phone number provided Yes Patient aware of follow up options Yes Revisit per MD consult or patient Sign Off request:
[2020-02-27] MEDS: METOPROLOL TARTRATE 25 MG TAB PO SCH (21:41)
[2020-02-27] MEDS: SODIUM CHLORIDE 0.9% 1000 ML 1,000 ML IV SCH (22:17)
[2020-02-28] MEDS: CLINDAMYCIN 600 MG/50 mL 600 MG/50 ML BAG IV SCH ×3 (04:19→23:33)
[2020-02-28] MEDS: MORPHINE 2 MG/1 ML INJ IV PRN (05:21)
[2020-02-28] MEDS: hydrALAZINE 25 MG TAB PO SCH ×3 (05:42→23:34)
[2020-02-28 06:25] LABS: Calcium 9.3 mg/dL (8.4-10.2)
[2020-02-28] MEDS: INSULIN NPH/REGULAR 70/30 INJ SUB-Q SCH ×2 (08:04→16:45)
[2020-02-28] MEDS: INSULIN LISPRO 100 UNIT/ML VIAL 3 mL SUB-Q SCH ×4 (08:05→23:37)
[2020-02-28] MEDS ORDERED: SODIUM CHLORIDE 0.9% 500 ML 500 ML ONE ×2 (10:16→11:15)
--- NOTE | 2020-02-28 10:32 | Progress Note ---
Assessment and Plan - Patient Problems (1) Wmxsz-we-kelhkdo kidney injury Current Visit: Yes Status: Acute Plan to address problem: Agree with current regimen with IV fluid hydration. He likely has at least underlying chronic kidney disease stage III in the setting of diabetes and hypertension. Renal function has improved back to his baseline. From nephrology standpoint he is stable for revascularization procedure. Would continue with IV fluid hydration post procedure to ensure stable renal function. (2) Gangrene of toe of right foot Current Visit: Yes Status: Acute Plan to address problem: Per vascular surgery the plan is for optimization of renal function prior to likely vascularization on Friday and further surgical intervention afterwards. We will follow up with vascular surgery. (3) Hypertension Current Visit: Yes Status: Acute Qualifiers: Hypertension type: essential hypertension Qualified Code(s): I10 - E ssential (primary) hypertension Plan to address problem: Monitor blood pressures on the current regimen. (4) Diabetes mellitus Current Visit: Yes Status: Acute Plan to address problem: Diabetes management per primary attending. Subjective Date of service: 02/28/20 Principal diagnosis: Right foot gangrene Interval history: No acute issues overnight. Labs are stable and renal function is showing improvement since admission. He remains on gentle injection. He has no acute complaints this morning. Plan is for revascularization procedure with vascular surgery today. Objective - Vital Signs Vital signs: Vital Signs - 12hr 02/27/20 02/28/20 02/28/20 23:54 05:18 07:52 Temperature 98.0 F 98.1 F 97.7 F Pulse Rate 72 71 71 Respiratory 20 18 18 Rate Blood Pressure 165/75 169/85 145/41 O2 Sat by Pulse 95 94 95 Oximetry - General Appearance General appearance: well-developed, well-nourished, appears stated age, obese EENT: ATNC Neck: no JVD Respiratory: Present: Clear to Ascultation Cardiology: regular Gastrointestinal: normal Neurologic: no focal deficit, alert and oriented x3 Musculoskeletal: deferred Psychiatric: mood/affect appropriate - Lab 02/25/20 05:32 02/28/20 05:42 Most recent lab results Calcium 9.3 mg/dL (8.4-10.2) 02/28/20 05:42 Magnesium 2.20 mg/dL (1.7-2.3) 02/25/20 05:32 - Allied health notes Allied health notes reviewed: nursing Medications & Allergies - Medications Allergies/Adverse Reactions: Allergies No Known Allergies Allergy (Unverified 02/23/20 14:44) Active Medications: Generic Name Dose Route Start Last Admin Trade Name Freq PRN Reason Stop Dose Admin Acetaminophen 650 mg 02/24/20 00:13 Acetaminophen 325 Mg Tab PO Q4H PRN Pain MILD(1-3)/Fever >100.5/HART Dextrose 0 ml 02/24/20 00:13 Dextrose 50% In Water (25gm) 50 Ml Syringe IV Q30MIN PRN Hypoglycemia Protocol Hydralazine HCl 50 mg 02/27/20 14:00 02/28/20 05:42 Hydralazine 25 Mg Tab PO 50 mg Q8HR SHANNON Administration Sodium Chloride 1,000 mls @ 50 mls/hr 02/24/20 00:15 02/27/20 22:17 Nacl 0.9% 1000 Ml IV 75 mls/hr DIRECT SHANNON Administration Clindamycin HCl 600 mg in 50 mls @ 100 mls/hr 02/24/20 04:00 02/28/20 05:21 Cleocin 600 Mg/50 Ml IV Infused Q8H SHANNON Infusion Protocol Sodium Chloride 500 mls @ 50 mls/hr 02/28/20 11:00 Nacl 0.9% 500 Ml IV 02/28/20 18:00 DIRECT SHANNON Insulin Human Isoph/Insulin Regular 5 unit 02/26/20 17:00 02/28/20 08:04 Insulin Nph/Regular 70/30 Inj SUB-Q Not Given BIDDIAB SHANNON Insulin Human Lispro 0 unit 02/24/20 07:30 02/28/20 08:05 Insulin Lispro 100 Unit/Ml Vial 3 Ml SUB-Q Not Given ACHS [facility] Protocol Magnesium Hydroxide 30 ml 02/24/20 00:13 Magnesium Hydroxide (Mom) Oral Liqd Udc PO Q4H PRN Constipation Metoprolol Tartrate 25 mg 02/27/20 22:00 02/27/20 21:41 Metoprolol Tartrate 25 Mg Tab PO 25 mg BID SHANNON Administration Morphine Sulfate 2 mg 02/24/20 00:13 02/28/20 05:21 Morphine 2 Mg/1 Ml Inj IV 2 mg Q4H PRN Administration Pain, Moderate (4-6) Ondansetron HCl 4 mg 02/24/20 00:13 02/27/20 21:44 Ondansetron 4 Mg/2 Ml Inj IV 4 mg Q8H PRN Administration Nausea And Vomiting Sodium Chloride 10 ml 02/24/20 10:00 02/27/20 22:28 Sodium Chloride 0.9% 10 Ml Flush Syringe IV 10 ml BID SHANNON Administration Sodium Chloride 10 ml 02/24/20 00:13 Sodium Chloride 0.9% 10 Ml Flush Syringe IV PRN PRN LINE FLUSH
[2020-02-28] MEDS ORDERED: SODIUM CHLORIDE 0.9% 500 ML 500 ML IV SCH (11:00)
[2020-02-28] MEDS ORDERED: HEPARIN/NS 5000 UNIT/500ML 1,000 ML IR ONE ×2 (11:15→12:29)
[2020-02-28] MEDS ORDERED: ceFAZolin/Water 2 GM/20 ML 2 GM/20 ML SYRINGE IV ONE (11:17)
[2020-02-28] MEDS ORDERED: LIDOCAINE (2%) 20 MG/1 ML VIAL 20 ML MDV INFILTRATI ONE (11:41)
[2020-02-28] MEDS ORDERED: diphenhydrAMINE 50 MG/ML VIAL ONE (11:47)
[2020-02-28] MEDS ORDERED: methylPREDNISolone Sod Succinate 125 MG/2 ML INJ ONE (11:48)
[2020-02-28] MEDS ORDERED: FAMOTIDINE 20 MG/2 ML INJ IV ONE ×2 (11:48→11:54)
[2020-02-28] MEDS: fentaNYL 100 MCG/2 ML INJ ONE ×9 (12:00→13:30)
[2020-02-28] MEDS: MIDAZOLAM 2 MG/2 ML INJ ONE ×9 (12:00→13:30)
[2020-02-28] MEDS: hydrALAZINE 20 MG/1 ML INJ ONE ×2 (12:22→12:33)
[2020-02-28] MEDS: HEPARIN 10,000 UNITS/10 ML VIAL ONE ×2 (13:10→13:15)
[2020-02-28] MEDS ORDERED: NITROGLYCERIN SYRINGE 6 ML ONE (13:43)
[2020-02-28] MEDS ORDERED: ASPIRIN 81 MG TAB CHEW ONE (14:00)
[2020-02-28] MEDS ORDERED: CLOPIDOGREL 300 MG TAB ONE (14:00)
[2020-02-28] MEDS ORDERED: CLOPIDOGREL 75 MG TAB ONE (14:00)
[2020-02-28] MEDS ORDERED: ALUM-MAG HYDROXIDE-SIMETHICONE 200-200-20MG/5ML ORAL LIQD 30 ML ONE (14:01)
--- NOTE | 2020-02-28 14:29 | Operative Report ---
Operative Report Operative Report: EXAM: 1. Ultrasound guided access of the left common femoral artery 2. Angiography of the left lower extremity 3. Selection of the abdominal aorta with angiography 4. Selection of the right common femoral artery, superficial femoral artery, and popliteal artery with angiography 5. Selection of the right posterior tibial artery with angiography 6. Fluoroscopic guided placement of a 5 mm spider EPD in the right posterior tibial artery 7. Atherectomy of the right popliteal artery with a Hawkone S device, an gioplasty with a 5 mm x 100 mm angiosculpt balloon and angioplasty with a 6 mm x 80 mm iNPACT balloon 8. Atherectomy of the right tibioperoneal trunk with a Hawkone S device, angioplasty with a 5 mm x 100 mm angiosculpt balloon and stenting with a 4.5 mm x 15 mm RESOLUTE STEFAN with post angioplasty with a 5.5 mm x 12 mm angioplasty balloon 9. Angioplasty of the right posterior tibial artery with a 3 mm x 100 mm angiosculpt balloon and 3.5 mm x 220 mm coyote balloon 10. Fluoroscopic guided retrieval of the embolic protection device with injection of 600 micrograms of nitroglycerin 11. 6 Fr Angioseal closure of the left common femoral artery DATE: 02/28/2020 [facility] ATTENDANT: MAT RUSSO MD INDICATION: Critical limb ischemia of the right lower extremity with gangrene MEDICATIONS: Please see nursing report for full details. DEVICES: Hawkone S device 5 mm spider embolic protection device 5 mm x 100 mm angiosculpt 3 mm x 100 mm angiosculpt 3.5 mm x 220 mm angioplasty balloon 6 mm x 80 mm iNPACT balloon 4.5 mm x 15 mm RESOLUTE STEFAN 5.5 mm x 12 mm coronary balloon CONTRAST: 46 mL of nonionic contrast PROCEDURE: The risks, benefits, and alternatives were discussed with the patient; written informed consent was obtained. The groins were prepped and draped in a sterile fashion. Ultrasound used to evaluate the left common femoral artery. Under direct ultrasound guidance, the left common femoral artery was accessed with a 21-gauge micropuncture needle. 0.018 inch wire was passed into the aorta. Needle was exchanged for transitional dilator. Wire was exchanged for a 0.035 inch Glidewire advantage. Transitional dilator was exchanged for 5 [place] sheath. Digital subtraction angiography was performed demonstrating an appropriate puncture, above the bifurcation and below the inferior epigastric artery. The left external iliac artery, common femoral artery, proximal superficial femoral artery, and profundofemoral artery were patent. The abdominal aorta was selected with the flush catheter and digital subtraction angiography was performed. The right common femoral artery was selected with the flush catheter and digital subtraction angiography was performed. The right superficial femoral artery and popliteal artery were selected with catheters and digital subtraction angiography was performed. Digital subtraction angiography demonstrated patency of the infrarenal abdominal aorta, bilateral common iliac arteries, internal iliac arteries, external iliac arteries, right common femoral artery, right profunda femoral artery, and right proximal and mid superficial femoral artery. The distal superficial femoral artery had a few focal areas of 20% narrowing with eccentric calcifications. The zxpol-nhq-cfpp popliteal artery a few centimeters above the knee joint had a focal area of 50% narrowing due to a focal calcification which extended 1 cm. The mid popliteal artery to the distal popliteal artery had 20% diffuse narrowing. There is extensive infrapopliteal arterial disease. The anterior tibial artery had an ostial 70% narrowing, and then after 3 cm became occluded with reconstitution in the mid calf of small caliber (1.5 to 2 mm in size which then provided flow into the foot through a dorsalis pedis vessel which was also small in caliber. The tibioperoneal trunk had a proximal 90% narrowing at the ostium. The mid and distal portion of the vessel had 20% narrowing. The peroneal artery was occluded for 5 cm and then reconstituted as a 2 mm vessel which provided flow to the ankle without evidence of significant collateralization to the foot. The posterior tibial artery had a proximal 70% narrowing with a tandem 60% narrowing and mid posterior tibial 1 cm 90% narrowing. The distal posterior tibial artery had 20 to 30% narrowing. The common plantar artery had 50% narrowing, the medial plantar artery had some atherosclerotic disease at the origin of 50% and was otherwise patent. The lateral plantar artery had a 3 cm occlusion before reconstituted from collaterals. Overall, the posterior tibial artery was the largest vessel that supplied the foot. At this point, the patient was heparinized. Sheath was exchanged for a 6 [place] 90 cm [place] destination positioned in the right toopv-rcq-ksjj popliteal artery. Wire and catheter were then used to select the tibioperoneal trunk and the posterior tibial artery. Using an xzxw-lty-cuss method, a 5 mm spider embolic protection device was deployed in the right distal posterior tibial artery. Sharne S device was then used to perform atherectomy of the edqyg-zeo-kdbs popliteal artery, and the focal tibioperoneal trunk. I attempted to pass the device through the posterior tibial artery but it would not pass which prevented me from performing atherectomy of the posterior tibial artery. After this was performed, I used a 5 mm x 100 mm angiosculpt to performed angioplasty of the tibioperoneal trunk and fksus-ojk-lghs popliteal artery. Afterwards I used a 3 mm x 100 mm angiosculpt to perform angioplasty of the proximal and mid posterior tibial artery. Subsequently, a 3.5 mm x 220 mm angioplasty balloon was used to perform angioplasty of the proximal mid posterior tibial artery. I used a 6 mm x 80 mm angioplasty balloon at burst pressure to perform angioplasty of the vgylt-ykt-pqid popliteal artery in order to achieve 6.5 mm balloon inflation. Intermittent digital subtraction angiography was performed. Digital subtraction angiography demonstrated less than 30% residual narrowing of the yjwbf-rvc-ifga popliteal artery, 50 to 60% residual narrowing of the tibioperoneal trunk, and less than 10% residual narrowing of the posterior tibial artery. I then decided to stent the tibial peroneal trunk lesion. 4.5 mm x 15 mm resolute STEFAN stent was then deployed over the tibioperoneal trunk residual narrowing. This was then postdilated with a 5.5 x 12 mm coronary angioplasty balloon. Repeat digital subtraction angiography demonstrated no residual narro wing of the tibial peroneal trunk. There is spasm and debris in the posterior tibial artery embolic protection device which was then retrieved and nitroglycerin was injected. Final digital subtraction angiography demonstrated less than 30% residual narrowing of the hypjm-yqf-wmao popliteal artery, no residual narrowing of the tibioperoneal trunk stent, and less than 10% residual narrowing of the proximal and mid posterior tibial artery. The rest of the runoff was unchanged and not treated due to contrast limitations and limited supply that these vessels provided the foot. At this point, all wires, catheters, and sheaths were retracted to the left external iliac artery. Sheath was then exchanged for a 6 [place] Angio-Seal over a Glidewire advantage which was then deployed in the left common femoral artery successfully achieving immediate hemostasis. Patient tolerated the procedure well. No immediate postprocedural complications. FINDINGS: Please see procedure note above. IMPRESSION: Successful endovascular revascularization of the right lower extremity as described above. Patient was loaded with aspirin and Plavix after the procedure.
[2020-02-28] MEDS: METOPROLOL TARTRATE 25 MG TAB PO SCH ×3 (15:49→23:35)
[2020-02-28] MEDS: CILOSTAZOL 100 MG TAB PO SCH (16:15)
--- NOTE | 2020-02-28 19:51 | Progress Note ---
Assessment and Plan Assessment and plan: --Vascularization procedure today per vascular 02/28/2020 Possible amputation of the fourth toe tomorrow Patient is off the floor for the procedure -- Gangrene of right fourth toe Current Visit: Yes Status: Acute Plan to address problem: Patient commenced on empiric IV antibiotics. Vascular : evaluated the patient and recommend the patient need to be medically optimized with a plan towards revascularization of his right leg on Friday02/28/2020 and potentially amputation of his fourth toe on Friday02/29/2020. Surgery:seen the patient, recommend wound care and amputation next week After 02/29/2020 when he is available, would also recommend earlier intervention By vascular as needed -- Hypertension Current Visit: Yes Status: Acute Plan to address problem: We resume routine home medications and monitor vital signs closely. --Arterial insufficiency of lower extremity Current Visit: Yes Status: Acute Plan to address problem: Patient to be evaluated by vascular surgery. --Acute kidney injury/vasomotor nephropathy Current Visit: Yes Status: Acute Plan to address problem: Nephrology following Significant improvement of creatinine level, today 1.6 Patient is receiving IV hopefully it will come down more by tomorrow Closely monitor renal function avoid nephrotoxins --Type II diabetes mellitus Current Visit: Yes Status: Acute Plan to address problem: Accu-Chek sliding scale coverage ADA diet Long-acting insulin as needed --Severe malnutrition/hypoalbuminemia Current Visit: Yes Status: Acute Plan to address problem: Nutrition supplements, nutrition consult Nutrition supplements, nutrition consult And supportive care --DVT prophylaxis Current Visit: Yes Status: Acute. Plan to address problem: Patient placed on sequential compression device. We will hold off anticoagulation in view of possible surgery. --Full code status Current Visit: Yes Status: Acute Plan to address problem: Patient is a full code. Consults evaluation and recommendations noted and appreciated Plan of care reviewed with the patient and his nurse 02/24/2020 :vascular waiting for medical stabilization specially the renal function Creatinine level slowly trending down, avoid nephrotoxins Nephrology and vascular evaluation noted and appreciated 02/25/2020; mild improvement of renal function, nephrology following Possible revascularization on 02/28/2020 And possible amputation of the toe on 02/29/2020, patient is medically stable 02/26/2020; renal function significantly improved creatinine today is 1.6, will continue IV hydration Avoid nephrotoxins, possible revascularization procedure on 02/28/2020 Plan of care reviewed with the patient and his nurse 02/28/2020[patient is scheduled for revascularization vascular procedure today Possible toe amputation tomorrow Closely monitor the patient and adjust the management as needed History Interval history: Patient is scheduled for revascularization procedure today No new events reported by the nursing staff Patient is off the floor for the procedure Vital signs are stable in the records Hospitalist Physical - Physical exam Narrative exam: Patient is off to the OR for the revascularization procedure - Constitutional Vitals: Temp Pulse Resp BP Pulse Ox 97.8 F 88 18 168/81 97 02/28/20 14:44 02/28/20 16:28 02/28/20 14:44 02/28/20 16:28 02/28/20 14:44 General appearance: Present: no acute distress, well-nourished, obese Results - Labs CBC & Chem 7: 02/25/20 05:32 02/28/20 05:42 Labs: Laboratory Last Values WBC 6.8 K/mm3 (4.5-11.0) 02/25/20 05:32 RBC 4.20 M/mm3 (3.65-5.03) 02/25/20 05:32 Hgb 11.9 gm/dl (11.8-15.2) 02/25/20 05:32 Hct 35.8 % (35.5-45.6) 02/25/20 05:32 MCV 85 fl (84-94) 02/25/20 05:32 MCH 28 pg (28-32) 02/25/20 05:32 MCHC 33 % (32-34) 02/25/20 05:32 RDW 13.8 % (13.2-15.2) 02/25/20 05:32 Plt Count 218 K/mm3 (140-440) 02/25/20 05:32 Lymph % (Auto) 18.4 % (13.4-35.0) 02/25/20 05:32 Mclean % (Auto) 13.2 % (0.0-7.3) H 02/25/20 05:32 Eos % (Auto) 2.5 % (0.0-4.3) 02/25/20 05:32 Baso % (Auto) 0.9 % (0.0-1.8) 02/25/20 05:32 Lymph # (Auto) 1.2 K/mm3 (1.2-5.4) 02/25/20 05:32 Mclean # (Auto) 0.9 K/mm3 (0.0-0.8) H 02/25/20 05:32 Eos # (Auto) 0.2 K/mm3 (0.0-0.4) 02/25/20 05:32 Baso # (Auto) 0.1 K/mm3 (0.0-0.1) 02/25/20 05:32 Seg Neutrophils % 65.0 % (40.0-70.0) 02/25/20 05:32 Seg Neutrophils # 4.4 K/mm3 (1.8-7.7) 02/25/20 05:32 PT 14.2 Sec. (12.2-14.9) 02/25/20 05:32 INR 1.12 (0.87-1.13) 02/25/20 05:32 APTT 36.1 Sec. (24.2-36.6) 02/23/20 18:08 Sodium 137 mmol/L (137-145) 02/28/20 05:42 Potassium 4.5 mmol/L (3.6-5.0) 02/28/20 05:42 Chloride 104.6 mmol/L (98-107) 02/28/20 05:42 Carbon Dioxide 27 mmol/L (22-30) 02/28/20 05:42 Anion Gap 10 mmol/L 02/28/20 05:42 BUN 15 mg/dL (9-20) 02/28/20 05:42 Creatinine 1.7 mg/dL (0.8-1.3) H 02/28/20 05:42 Estimated GFR 41 ml/min 02/28/20 05:42 BUN/Creatinine Ratio 9 % 02/28/20 05:42 Glucose 167 mg/dL (75-100) H 02/28/20 05:42 POC Glucose 280 mg/dL (70-105) H 02/28/20 16:40 Hemoglobin A1c 9.8 % (4-6) H 02/26/20 06:31 Calcium 9.3 mg/dL (8.4-10.2) 02/28/20 05:42 Magnesium 2.20 mg/dL (1.7-2.3) 02/25/20 05:32 Total Bilirubin 0.20 mg/dL (0.1-1.2) 02/25/20 05:32 Direct Bilirubin < 0.2 mg/dL (0-0.2) 02/25/20 05:32 Indirect Bilirubin 0.0 mg/dL 02/25/20 05:32 AST 19 units/L (5-40) 02/25/20 05:32 ALT 26 units/L (7-56) 02/25/20 05:32 Alkaline Phosphatase 86 units/L (35-129) 02/25/20 05:32 Total Protein 6.7 g/dL (6.3-8.2) 02/25/20 05:32 Albumin 2.8 g/dL (3.9-5) L 02/25/20 05:32 Albumin/Globulin Ratio 0.7 % 02/25/20 05:32 Microbiology: Microbiology 02/23/20 19:05 Peripheral/Venous Blood Culture - Preliminary NO GROWTH AFTER 4 DAYS 02/23/20 18:58 Peripheral/Venous Blood Culture - Preliminary NO GROWTH AFTER 4 DAYS Pierre/IV: Voiding Method Toilet IV Catheter Type [Left Forearm INT / Saline Lock ] IV Catheter Type [Right INT / Saline Lock Forearm] Active Medications - Current Medications Current Medications: Generic Name Dose Route Start Last Admin Trade Name Freq PRN Reason Stop Dose Admin Acetaminophen 650 mg 02/24/20 00:13 Acetaminophen 325 Mg Tab PO Q4H PRN Pain MILD(1-3)/Fever >100.5/HART Aspirin 81 mg 02/29/20 10:00 Aspirin Ec 81 Mg Tab PO QDAY [facility] Cilostazol 100 mg 02/28/20 15:00 02/28/20 16:15 Cilostazol 100 Mg Tab PO 100 mg BID SHANNON Administration Clopidogrel Bisulfate 75 mg 02/29/20 10:00 Clopidogrel 75 Mg Tab PO QDAY SHANNON Dextrose 0 ml 02/24/20 00:13 Dextrose 50% In Water (25gm) 50 Ml Syringe IV Q30MIN PRN Hypoglycemia Protocol Hydralazine HCl 50 mg 02/27/20 14:00 02/28/20 15:50 Hydralazine 25 Mg Tab PO Not Given Q8HR [facility] Sodium Chloride 1,000 mls @ 50 mls/hr 02/24/20 00:15 02/27/20 22:17 Nacl 0.9% 1000 Ml IV 75 mls/hr DIRECT SHANNON Administration Clindamycin HCl 600 mg in 50 mls @ 100 mls/hr 02/24/20 04:00 02/28/20 16:15 Cleocin 600 Mg/50 Ml IV 100 mls/hr Q8H SHANNON Administration Protocol Insulin Human Isoph/Insulin Regular 5 unit 02/26/20 17:00 02/28/20 16:45 Insulin Nph/Regular 70/30 Inj SUB-Q 5 unit BIDDIAB SHANNON Administration Insulin Human Lispro 0 unit 02/24/20 07:30 02/28/20 16:45 Insulin Lispro 100 Unit/Ml Vial 3 Ml SUB-Q 4 unit ACHS SHANNON Administration Protocol Magnesium Hydroxide 30 ml 02/24/20 00:13 Magnesium Hydroxide (Mom) Oral Liqd Udc PO Q4H PRN Constipation Metoprolol Tartrate 25 mg 02/27/20 22:00 02/28/20 16:28 Metoprolol Tartrate 25 Mg Tab PO 25 mg BID SHANNON Administration Morphine Sulfate 2 mg 02/24/20 00:13 02/28/20 05:21 Morphine 2 Mg/1 Ml Inj IV 2 mg Q4H PRN Administration Pain, Moderate (4-6) Ondansetron HCl 4 mg 02/24/20 00:13 02/27/20 21:44 Ondansetron 4 Mg/2 Ml Inj IV 4 mg Q8H PRN Administration Nausea And Vomiting Sodium Chloride 10 ml 02/24/20 10:00 02/27/20 22:28 Sodium Chloride 0.9% 10 Ml Flush Syringe IV 10 ml BID SHANNON Administration Sodium Chloride 10 ml 02/24/20 00:13 Sodium Chloride 0.9% 10 Ml Flush Syringe IV PRN PRN LINE FLUSH Nutrition/Malnutrition Assess - Dietary Evaluation Nutrition/Malnutrition Findings: Nutrition Notes Start: 02/24/20 12:11 Freq: Status: Active Protocol: Document 02/24/20 12:11 LM (Rec: 02/24/20 12:15 LM [email or web address]) Nutrition Notes Need for Assessment generated from: MD Order,Education Weight Status Obese Subjective/Other Information MD consult for diet education. Pt stated eating well with no wt loss. 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 Pt admits to eating fast foods but has a cooler and is open to packing healthier optons from home. Discussed with pt healthy foods he could pack for DM and HTN. Discussed the plate method, portions, heart healthy foods with pt. Pt eager to start making healthy changes. #1 Nutrition Diagnosis Food and nutrition-related knowledge deficit Etiology No prior DM and HTN diet education As Evidenced by Signs and Symptoms Pt requesting diet education Nutrition Intervention Teaching Recipient Patient Learning Readiness Good Teaching Methods Discussion,Handout Response to Teaching Verbalize understanding Education Handouts Provided Carbohydrate Counting for people with DM, HTN hand out Barriers to Learning Environmental RD phone number provided Yes Patient aware of follow up options Yes Revisit per MD consult or patient Sign Off request:
[2020-02-29] MEDS: CILOSTAZOL 100 MG TAB PO SCH ×3 (00:02→22:01)
[2020-02-29] MEDS: CLINDAMYCIN 600 MG/50 mL 600 MG/50 ML BAG IV SCH ×3 (04:39→19:56)
[2020-02-29] MEDS: hydrALAZINE 25 MG TAB PO SCH ×3 (05:31→22:01)
[2020-02-29 06:12] LABS: Basophils % (Auto) 0.1 % (0.0-1.8); Hematocrit 36.8 % (35.5-45.6); Hemoglobin 12.2 gm/dl (11.8-15.2); Lymphocytes # (Auto) 0.8 K/mm3 (1.2-5.4); Lymphocytes % (Auto) 5.8 % (13.4-35.0); Mean Corpuscular HGB Conc 33 % (32-34); Mean Corpuscular Volume 84 fl (84-94); Monocytes # (Auto) 0.6 K/mm3 (0.0-0.8); Monocytes % (Auto) 4.2 % (0.0-7.3); Platelet Count 259 K/mm3 (140-440); Red Blood Count 4.38 M/mm3 (3.65-5.03)
[2020-02-29 06:28] LABS: Calcium 8.9 mg/dL (8.4-10.2)
[2020-02-29] MEDS: INSULIN LISPRO 100 UNIT/ML VIAL 3 mL SUB-Q SCH ×4 (07:35→22:05)
[2020-02-29] MEDS: INSULIN NPH/REGULAR 70/30 INJ SUB-Q SCH ×2 (08:10→17:05)
--- NOTE | 2020-02-29 09:02 | Progress Note ---
Assessment and Plan - Patient Problems (1) [id number] kidney injury Current Visit: Yes Status: Acute Plan to address problem: Agree with current regimen with IV fluid hydration. He likely has at least underlying chronic kidney disease stage III in the setting of diabetes and hypertension. Renal function has improved back to his baseline. Renal function remained stable post revascularization procedure. We will continue to monitor closely. (2) Gangrene of toe of right foot Current Visit: Yes Status: Acute Plan to address problem: Status post right lower extremity revascularization yesterday. No acute issues overnight. We will continue to monitor renal functions daily. (3) Hypertension Current Visit: Yes Status: Acute Qualifiers: Hypertension type: essential hypertension Qualified Code(s): I10 - Essential (primary) hypertension Plan to address problem: Monitor blood pressures on the current regimen. (4) Diabetes mellitus Current Visit: Yes Status: Acute Plan to address problem: Diabetes management per primary attending. Subjective Date of service: 02/29/20 Principal diagnosis: Right foot gangrene Interval history: No acute issues overnight. Patient tolerated revascularization procedure well. Operative note reviewed. Renal function remained stable postoperatively. He remains on gentle IV fluid hydration 50 cc of normal saline an hour. Patient is eating breakfast this morning and has no acute complaints at all. Pending further surgical work-up at this time. Objective - Vital Signs Vital signs: Vital Signs - 12hr 02/28/20 02/28/20 02/28/20 23:19 23:34 23:35 Temperature 97.2 F L Pulse Rate 70 70 70 Respiratory 18 Rate Blood Pressure 140/71 140/71 140/71 O2 Sat by Pulse 95 Oximetry 02/29/20 02/29/20 02/29/20 05:20 05:31 07:35 Temperature 97.5 F L 97.6 F Pulse Rate 64 63 72 Respiratory 18 20 Rate Blood Pressure 156/93 156/93 119/54 O2 Sat by Pulse 95 94 Oximetry - General Appearance General appearance: well-developed, well-nourished, appears stated age, obese EENT: ATNC Neck: no JVD, no thyromegaly Respiratory: Present: Clear to Ascultation, Normal Exam Cardiology: regular, S1S2 Gastrointestinal: normal, normoactive bowel sounds Integumentary: warm and dry Neurologic: no focal deficit, alert and oriented x3 Musculoskeletal: deferred Psychiatric: cooperative - Lab 02/29/20 05:21 01/05/21 05:21 Most recent lab results Calcium 8.9 mg/dL (8.4-10.2) 02/29/20 05:21 Magnesium 2.20 mg/dL (1.7-2.3) 02/25/20 05:32 - Allied health notes Allied health notes reviewed: nursing Medications & Allergies - Medications Allergies/Adverse Reactions: Allergies No Known Allergies Allergy (Unverified 02/23/20 14:44) Active Medications: Generic Name Dose Route Start Last Admin Trade Name Freq PRN Reason Stop Dose Admin Acetaminophen 650 mg 02/24/20 00:13 Acetaminophen 325 Mg Tab PO Q4H PRN Pain MILD(1-3)/Fever >100.5/HART Aspirin 81 mg 02/29/20 10:00 Aspirin Ec 81 Mg Tab PO QDAY [facility] Cilostazol 100 mg 02/28/20 15:00 02/29/20 00:02 Cilostazol 100 Mg Tab PO 100 mg BID SHANNON Administration Clopidogrel Bisulfate 75 mg 02/29/20 10:00 Clopidogrel 75 Mg Tab PO QDAY [facility] Dextrose 0 ml 02/24/20 00:13 Dextrose 50% In Water (25gm) 50 Ml Syringe IV Q30MIN PRN Hypoglycemia Protocol Hydralazine HCl 50 mg 02/27/20 14:00 02/29/20 05:31 Hydralazine 25 Mg Tab PO 50 mg Q8HR SHANNON Administration Sodium Chloride 1,000 mls @ 50 mls/hr 02/24/20 00:15 02/27/20 22:17 Nacl 0.9% 1000 Ml IV 75 mls/hr DIRECT SHANNON Administration Clindamycin HCl 600 mg in 50 mls @ 100 mls/hr 02/24/20 04:00 02/29/20 04:39 Cleocin 600 Mg/50 Ml IV 100 mls/hr Q8H SHANNON Administration Protocol Insulin Human Isoph/Insulin Regular 5 unit 02/26/20 17:00 02/28/20 16:45 Insulin Nph/Regular 70/30 Inj SUB-Q 5 unit BIDDIAB SHANNON Administration Insulin Human Lispro 0 unit 02/24/20 07:30 02/28/20 23:37 Insulin Lispro 100 Unit/Ml Vial 3 Ml SUB-Q 4 unit ACHS SHANNON Administration Protocol Magnesium Hydroxide 30 ml 02/24/20 00:13 Magnesium Hydroxide (Mom) Oral Liqd Udc PO Q4H PRN Constipation Metoprolol Tartrate 25 mg 02/27/20 22:00 02/28/20 23:35 Metoprolol Tartrate 25 Mg Tab PO 25 mg BID SHANNON Administration Morphine Sulfate 2 mg 02/24/20 00:13 02/28/20 05:21 Morphine 2 Mg/1 Ml Inj IV 2 mg Q4H PRN Administration Pain, Moderate (4-6) Ondansetron HCl 4 mg 02/24/20 00:13 02/27/20 21:44 Ondansetron 4 Mg/2 Ml Inj IV 4 mg Q8H PRN Administration Nausea And Vomiting Sodium Chloride 10 ml 02/24/20 10:00 02/28/20 23:33 Sodium Chloride 0.9% 10 Ml Flush Syringe IV 10 ml BID SHANNON Administration Sodium Chloride 10 ml 02/24/20 00:13 Sodium Chloride 0.9% 10 Ml Flush Syringe IV PRN PRN LINE FLUSH
[2020-02-29] MEDS: CLOPIDOGREL 75 MG TAB PO SCH (09:36)
[2020-02-29] MEDS: ASPIRIN EC 81 MG TAB PO SCH (09:36)
--- NOTE | 2020-02-29 11:26 | Progress Note ---
Assessment and Plan 64-year-old male status post revascularization of the right lower extremity with revascularization of the popliteal artery, tibioperoneal trunk, and posterior tibial artery, the dominant flow to the foot. Patient has residual occlusion of the peroneal artery and anterior tibial artery and some disease of the common plantar artery. Left groin has no pseudoaneurysm or hematoma. Pressure dressing removed. Right foot is warm and no longer has rest pain. Fourth digit and third digit are nonsalvageable and will require amputation. Ho pefully the site can be closed, but this will be up to Dr. Garcia. N.p.o. after midnight except sips of water with medications. Subjective Date of service: 02/29/20 Principal diagnosis: Right foot gangrene Interval history: Patient has severe underlying arterial disease of all 3 tibial vessels, tibioperoneal trunk, and popliteal artery. Status post revascularization of the right tibioperoneal trunk, posterior tibial artery, and popliteal artery. May need further revascularization if wound does not completely heal after amputation. Patient's right leg is warm. He no longer has rest pain. He is able to sleep better. Neuropathy improved. Redressed right foot with Betadine soaked gauze of the third digit and fourth digit. Entire fourth digit is gangrenous. The third digit has underlying os teomyelitis. Discussed with patient that he will need amputation of both toes which he understands. Discussed with him that hopefully his wound can be closed at the time of his amputation, but this will be up to Dr. Garcia. He understands. Objective - Constitutional Vitals: Vital Signs - 12hr 02/28/20 02/28/20 02/29/20 23:34 23:35 05:20 Temperature 97.5 F L Pulse Rate 70 70 64 Respiratory 18 Rate Blood Pressure 140/71 140/71 156/93 O2 Sat by Pulse 95 Oximetry 02/29/20 02/29/20 05:31 07:35 Temperature 97.6 F Pulse Rate 63 72 Respiratory 20 Rate Blood Pressure 156/93 119/54 O2 Sat by Pulse 94 Oximetry General appearance: Present: no acute distress - EENT Eyes: EOM intact ENT: hearing intact - Respiratory Respiratory effort: normal Extremities: normal temperature, normal color, abnormal (see subjective) Extremity abnormal: pulses diminished (Nonpalpable right pedal pulses, dopp lerable pedal pulses) - Gastrointestinal General gastrointestinal: Present: soft, non-tender - Psychiatric Psychiatric: appropriate mood/affect, cooperative - Labs CBC & Chem 7: 02/29/20 05:21 02/29/20 05:21 Labs: Abnormal lab results 02/28/20 02/28/20 02/29/20 Range/Units 16:40 21:46 05:21 WBC (4.5-11.0) K/mm3 Lymph % (Auto) (13.4-35.0) % Lymph # (Auto) (1.2-5.4) K/mm3 Seg Neutrophils % (40.0-70.0) % Seg Neutrophils # (1.8-7.7) K/mm3 Sodium 131 L (137-145) mmol/L BUN 21 H (9-20) mg/dL Creatinine 1.8 H (0.8-1.3) mg/dL Glucose 304 H (75-100) mg/dL POC Glucose 280 H 296 H (70-105) mg/dL 02/29/20 02/29/20 Range/Units 05:21 07:35 WBC 13.7 H (4.5-11.0) K/mm3 Lymph % (Auto) 5.8 L (13.4-35.0) % Lymph # (Auto) 0.8 L (1.2-5.4) K/mm3 Seg Neutrophils % 89.9 H (40.0-70.0) % Seg Neutrophils # 12.3 H (1.8-7.7) K/mm3 Sodium (137-145) mmol/L BUN (9-20) mg/dL Creatinine (0.8-1.3) mg/dL Glucose (75-100) mg/dL POC Glucose 269 H (70-105) mg/dL Medications & Allergies - Medications Allergies/Adverse Reactions: Allergies No Known Allergies Allergy (Unverified 02/23/20 14:44) Active Medications: Generic Name Dose Route Start Last Admin Trade Name Freq PRN Reason Stop Dose Admin Acetaminophen 650 mg 02/24/20 00:13 Acetaminophen 325 Mg Tab PO Q4H PRN Pain MILD(1-3)/Fever >100.5/HART Aspirin 81 mg 02/29/20 10:00 02/29/20 09:36 Aspirin Ec 81 Mg Tab PO 81 mg QDAY SHANNON Administration Cilostazol 100 mg 02/28/20 15:00 02/29/20 00:02 Cilostazol 100 Mg Tab PO 100 mg BID SHANNON Administration Clopidogrel Bisulfate 75 mg 02/29/20 10:00 02/29/20 09:36 Clopidogrel 75 Mg Tab PO 75 mg QDAY SHANNON Administration Dextrose 0 ml 02/24/20 00:13 Dextrose 50% In Water (25gm) 50 Ml Syringe IV Q30MIN PRN Hypoglycemia Protocol Hydralazine HCl 50 mg 02/27/20 14:00 02/29/20 05:31 Hydralazine 25 Mg Tab PO 50 mg Q8HR SHANNON Administration Sodium Chloride 1,000 mls @ 50 mls/hr 02/24/20 00:15 02/27/20 22:17 Nacl 0.9% 1000 Ml IV 75 mls/hr DIRECT SHANNON Administration Clindamycin HCl 600 mg in 50 mls @ 100 mls/hr 02/24/20 04:00 02/29/20 04:39 Cleocin 600 Mg/50 Ml IV 100 mls/hr Q8H SHANNON Administration Protocol Insulin Human Isoph/Insulin Regular 5 unit 02/26/20 17:00 02/28/20 16:45 Insulin Nph/Regular 70/30 Inj SUB-Q 5 unit BIDDIAB SHANNON Administration Insulin Human Lispro 0 unit 02/24/20 07:30 02/28/20 23:37 Insulin Lispro 100 Unit/Ml Vial 3 Ml SUB-Q 4 unit ACHS SHANNON Administration Protocol Magnesium Hydroxide 30 ml 02/24/20 00:13 Magnesium Hydroxide (Mom) Oral Liqd Udc PO Q4H PRN Constipation Metoprolol Tartrate 25 mg 02/27/20 22:00 02/28/20 23:35 Metoprolol Tartrate 25 Mg Tab PO 25 mg BID SHANNON Administration Morphine Sulfate 2 mg 02/24/20 00:13 02/28/20 05:21 Morphine 2 Mg/1 Ml Inj IV 2 mg Q4H PRN Administration Pain, Moderate (4-6) Ondansetron HCl 4 mg 02/24/20 00:13 02/27/20 21:44 Ondansetron 4 Mg/2 Ml Inj IV 4 mg Q8H PRN Administration Nausea And Vomiting Sodium Chloride 10 ml 02/24/20 10:00 02/28/20 23:33 Sodium Chloride 0.9% 10 Ml Flush Syringe IV 10 ml BID SHANNON Administration Sodium Chloride 10 ml 02/24/20 00:13 Sodium Chloride 0.9% 10 Ml Flush Syringe IV PRN PRN LINE FLUSH
--- NOTE | 2020-02-29 17:08 | Progress Note ---
Assessment and Plan - Patient Problems (1) Gangrene of toe of right foot Current Visit: Yes Status: Acute Plan to address problem: 1) TMA of right 3rd (remaining), 4th and 5th toes. No time in the OR tomorrow. Posted for , 03/02/20. Subjective Date of service: 02/29/20 Patient Reports: Positive: no new complaints Objective Vital Signs - 12hr 02/29/20 02/29/20 02/29/20 05:20 05:31 07:35 Temperature 97.5 F L 97.6 F Pulse Rate 64 63 72 Respiratory 18 20 Rate Blood Pressure 156/93 156/93 119/54 O2 Sat by Pulse 95 94 Oximetry 02/29/20 02/29/20 11:27 16:11 Temperature 98.8 F 97.6 F Pulse Rate 72 75 Respiratory 18 18 Rate Blood Pressure 130/63 164/70 O2 Sat by Pulse 95 97 Oximetry - Integumentary other (Right 4th toe is gangrenous. The wound of prior right 3rd toe appears infected as well.) - Labs 02/29/20 05:21 02/29/20 05:21 Diabetes panel 02/29/20 Range/Units 05:21 Sodium 131 L (137-145) mmol/L Potassium 5.0 (3.6-5.0) mmol/L Chloride 102.2 (98-107) mmol/L Carbon Dioxide 23 (22-30) mmol/L BUN 21 H (9-20) mg/dL Creatinine 1.8 H (0.8-1.3) mg/dL Glucose 304 H (75-100) mg/dL Calcium 8.9 (8.4-10.2) mg/dL Calcium panel 02/29/20 Range/Units 05:21 Calcium 8.9 (8.4-10.2) mg/dL Pituitary panel 02/29/20 Range/Units 05:21 Sodium 131 L (137-145) mmol/L Potassium 5.0 (3.6-5.0) mmol/L Chloride 102.2 (98-107) mmol/L Carbon Dioxide 23 (22-30) mmol/L BUN 21 H (9-20) mg/dL Creatinine 1.8 H (0.8-1.3) mg/dL Glucose 304 H (75-100) mg/dL Calcium 8.9 (8.4-10.2) mg/dL Adrenal panel 02/29/20 Range/Units 05:21 Sodium 131 L (137-145) mmol/L Potassium 5.0 (3.6-5.0) mmol/L Chloride 102.2 (98-107) mmol/L Carbon Dioxide 23 (22-30) mmol/L BUN 21 H (9-20) mg/dL Creatinine 1.8 H (0.8-1.3) mg/dL Glucose 304 H (75-100) mg/dL Calcium 8.9 (8.4-10.2) mg/dL - Imaging Additional Studies: MRI of right foot reviewed.
[2020-02-29] MEDS: METOPROLOL TARTRATE 25 MG TAB PO SCH ×2 (17:26→22:01)
--- NOTE | 2020-02-29 18:56 | Progress Note ---
Assessment and Plan Assessment and plan: --Patient had successful endovascular revascularization yesterday 02/28/2020 Tolerated the procedure well Patient had some pain with physical therapy Scheduled for TMA right 3,4,5 toes on 03/02/2020 -- Gangrene of right fourth toe Current Visit: Yes Status: Acute Plan to address problem: Patient commenced on empiric IV antibiotics. Vascular : evaluated the patient and recommend the patient need to be medically optimized Patient has undergone successful endovascular revascularization 02/28/2020 Surgery scheduled for TMA of the right third fourth and fifth toes on 03/02/2020 -- Hypertension Current Visit: Yes Status: Acute Plan to address problem: We resume routine home medications and monitor vital signs closely. --Arterial insufficiency of lower extremity Current Visit: Yes Status: Acute Plan to address problem: Patient to be evaluated by vascular surgery. --Acute kidney injury/vasomotor nephropathy Current Visit: Yes Status: Acute Plan to address problem: Nephrology following Significant improvement of creatinine level, today 1.6 Patient is receiving IV hopefully it will come down more by tomorrow Closely monitor renal function avoid nephrotoxins --Type II diabetes mellitus Current Visit: Yes Status: Acute Plan to address problem: Accu-Chek sliding scale coverage ADA diet Long-acting insulin as needed --Severe malnutrition/hypoalbuminemia Current Visit: Yes Status: Acute Plan to address problem: Nutrition supplements, nutrition consult Nutrition supplements, nutrition consult And supportive care --DVT prophylaxis Current Visit: Yes Status: Acute. Plan to address problem: Patient placed on sequential compression device. We will hold off anticoagulation in view of possible surgery. --Full code status Current Visit: Yes Status: Acute Plan to address problem: Patient is a full code. Consults evaluation and recommendations noted and appreciated Plan of care reviewed with the patient and his nurse 02/24/2020 :vascular waiting for medical stabilization specially the renal function Creatinine level slowly trending down, avoid nephrotoxins Nephrology and vascular evaluation noted and appreciated 02/25/2020; mild improvement of renal function, nephrology following Possible revascularization on 02/28/2020 And possible amputation of the toe on 02/29/2020, patient is medically stable 02/26/2020; renal function significantly improved creatinine today is 1.6, will continue IV hydration Avoid nephrotoxins, possible revascularization procedure on 02/28/2020 Plan of care reviewed with the patient and his nurse 02/28/2020[patient is scheduled for revascularization vascular procedure today Possible toe amputation tomorrow 02/29/2020; patient tolerated the procedure well receiving therapy TMA third fourth fifth toes on 03/02/2020 Closely monitor the patient and adjust the management as needed History Interval history: Patient underwent successful endovascular revascularization yesterday 02/28/2020 Patient tolerated the procedure well feels slightly better I have seen and examined the patient at the bedside this morning Patient's chart and medications reviewed Patient had some leg pain unable to do therapy today Relieved by pain medications Vital signs noted Patient is awaiting acute rehab placement Hospitalist Physical - Constitutional Vitals: Temp Pulse Resp BP Pulse Ox 97.6 F 75 18 164/70 97 02/29/20 16:11 02/29/20 16:11 02/29/20 16:11 02/29/20 17:26 02/29/20 16:11 General appearance: Present: no acute distress, well-nourished - EENT Eyes: Present: PERRL, EOM intact - Neck Neck: Present: supple, normal ROM - Respiratory Respiratory effort: normal Respiratory: bilateral: diminished, negative: rales, rhonchi, wheezing - Cardiovascular Rhythm: regular Heart Sounds: Present: S1 & S2 - Extremities Extremities: no ischemia, pulses intact, abnormal (Right BKA) - Abdominal General gastrointestinal: soft, non-tender, non-distended, normal bowel sounds - Integumentary Integumentary: Present: clear, warm - Psychiatric Psychiatric: appropriate mood/affect, cooperative - Neurologic Neurologic: moves all extremities Results - Labs CBC & Chem 7: 02/29/20 05:21 02/29/20 05:21 Labs: Laboratory Last Values WBC 13.7 K/mm3 (4.5-11.0) H 02/29/20 05:21 RBC 4.38 M/mm3 (3.65-5.03) 02/29/20 05:21 Hgb 12.2 gm/dl (11.8-15.2) 02/29/20 05:21 Hct 36.8 % (35.5-45.6) 02/29/20 05:21 MCV 84 fl (84-94) 02/29/20 05:21 MCH 28 pg (28-32) 02/29/20 05:21 MCHC 33 % (32-34) 02/29/20 05:21 RDW 14.0 % (13.2-15.2) 02/29/20 05:21 Plt Count 259 K/mm3 (140-440) 02/29/20 05:21 Lymph % (Auto) 5.8 % (13.4-35.0) L 02/29/20 05:21 [place] % (Auto) 4.2 % (0.0-7.3) 02/29/20 05:21 Eos % (Auto) 0.0 % (0.0-4.3) 02/29/20 05:21 Baso % (Auto) 0.1 % (0.0-1.8) 02/29/20 05:21 Lymph # (Auto) 0.8 K/mm3 (1.2-5.4) L 02/29/20 05:21 [place] # (Auto) 0.6 K/mm3 (0.0-0.8) 02/29/20 05:21 Eos # (Auto) 0.0 K/mm3 (0.0-0.4) 02/29/20 05:21 Baso # (Auto) 0.0 K/mm3 (0.0-0.1) 02/29/20 05:21 Seg Neutrophils % 89.9 % (40.0-70.0) H 02/29/20 05:21 Seg Neutrophils # 12.3 K/mm3 (1.8-7.7) H 02/29/20 05:21 PT 14.2 Sec. (12.2-14.9) 02/25/20 05:32 INR 1.12 (0.87-1.13) 02/25/20 05:32 APTT 36.1 Sec. (24.2-36.6) 02/23/20 18:08 Sodium 131 mmol/L (137-145) L 02/29/20 05:21 Potassium 5.0 mmol/L (3.6-5.0) 02/29/20 05:21 Chloride 102.2 mmol/L (98-107) 02/29/20 05:21 Carbon Dioxide 23 mmol/L (22-30) 02/29/20 05:21 Anion Gap 11 mmol/L 02/29/20 05:21 BUN 21 mg/dL (9-20) H 02/29/20 05:21 Creatinine 1.8 mg/dL (0.8-1.3) H 02/29/20 05:21 Estimated GFR 38 ml/min 02/29/20 05:21 BUN/Creatinine Ratio 12 % 02/29/20 05:21 Glucose 304 mg/dL (75-100) H 02/29/20 05:21 POC Glucose 188 mg/dL (70-105) H 02/29/20 16:10 Hemoglobin A1c 9.8 % (4-6) H 02/26/20 06:31 Calcium 8.9 mg/dL (8.4-10.2) 02/29/20 05:21 Magnesium 2.20 mg/dL (1.7-2.3) 02/25/20 05:32 Total Bilirubin 0.20 mg/dL (0.1-1.2) 02/25/20 05:32 Direct Bilirubin < 0.2 mg/dL (0-0.2) 02/25/20 05:32 Indirect Bilirubin 0.0 mg/dL 02/25/20 05:32 AST 19 units/L (5-40) 02/25/20 05:32 ALT 26 units/L (7-56) 02/25/20 05:32 Alkaline Phosphatase 86 units/L (35-129) 02/25/20 05:32 Total Protein 6.7 g/dL (6.3-8.2) 02/25/20 05:32 Albumin 2.8 g/dL (3.9-5) L 02/25/20 05:32 Albumin/Globulin Ratio 0.7 % 02/25/20 05:32 Microbiology: Microbiology 02/23/20 19:05 Peripheral/Venous Blood Culture - Final NO GROWTH AFTER 5 DAYS 02/23/20 18:58 Peripheral/Venous Blood Culture - Final NO GROWTH AFTER 5 DAYS Pierre/IV: Voiding Method Toilet IV Catheter Type [Left Forearm INT / Saline Lock ] IV Catheter Type [Right INT / Saline Lock Forearm] Active Medications - Current Medications Current Medications: Generic Name Dose Route Start Last Admin Trade Name Freq PRN Reason Stop Dose Admin Acetaminophen 650 mg 02/24/20 00:13 Acetaminophen 325 Mg Tab PO Q4H PRN Pain MILD(1-3)/Fever >100.5/HART Aspirin 81 mg 02/29/20 10:00 02/29/20 09:36 Aspirin Ec 81 Mg Tab PO 81 mg QDAY SHANNON Administration Cilostazol 100 mg 02/28/20 15:00 02/29/20 00:02 Cilostazol 100 Mg Tab PO 100 mg BID SHANNON Administration Clopidogrel Bisulfate 75 mg 02/29/20 10:00 02/29/20 09:36 Clopidogrel 75 Mg Tab PO 75 mg QDAY SHANNON Administration Dextrose 0 ml 02/24/20 00:13 Dextrose 50% In Water (25gm) 50 Ml Syringe IV Q30MIN PRN Hypoglycemia Protocol Hydralazine HCl 50 mg 02/27/20 14:00 02/29/20 17:00 Hydralazine 25 Mg Tab PO 50 mg Q8HR SHANNON Administration Sodium Chloride 1,000 mls @ 50 mls/hr 02/24/20 00:15 02/27/20 22:17 Nacl 0.9% 1000 Ml IV 75 mls/hr DIRECT SHANNON Administration Clindamycin HCl 600 mg in 50 mls @ 100 mls/hr 02/24/20 04:00 02/29/20 11:26 Cleocin 600 Mg/50 Ml IV 100 mls/hr Q8H SHANNON Administration Protocol Insulin Human Isoph/Insulin Regular 5 unit 02/26/20 17:00 02/28/20 16:45 Insulin Nph/Regular 70/30 Inj SUB-Q 5 unit BIDDIAB SHANNON Administration Insulin Human Lispro 0 unit 02/24/20 07:30 02/28/20 23:37 Insulin Lispro 100 Unit/Ml Vial 3 Ml SUB-Q 4 unit ACHS SHANNON Administration Protocol Magnesium Hydroxide 30 ml 02/24/20 00:13 Magnesium Hydroxide (Mom) Oral Liqd Udc PO Q4H PRN Constipation Metoprolol Tartrate 25 mg 02/27/20 22:00 02/29/20 17:26 Metoprolol Tartrate 25 Mg Tab PO 25 mg BID SHANNON Administration Morphine Sulfate 2 mg 02/24/20 00:13 02/28/20 05:21 Morphine 2 Mg/1 Ml Inj IV 2 mg Q4H PRN Administration Pain, Moderate (4-6) Ondansetron HCl 4 mg 02/24/20 00:13 02/27/20 21:44 Ondansetron 4 Mg/2 Ml Inj IV 4 mg Q8H PRN Administration Nausea And Vomiting Sodium Chloride 10 ml 02/24/20 10:00 02/29/20 17:34 Sodium Chloride 0.9% 10 Ml Flush Syringe IV Not Given BID SHANNON Sodium Chloride 10 ml 02/24/20 00:13 Sodium Chloride 0.9% 10 Ml Flush Syringe IV PRN PRN LINE FLUSH Nutrition/Malnutrition Assess - Dietary Evaluation Nutrition/Malnutrition Findings: Nutrition Notes Start: 02/24/20 12:11 Freq: Status: Active Protocol: Document 02/24/20 12:11 LM (Rec: 02/24/20 12:15 LM [id number]) Nutrition Notes Need for Assessment generated from: MD Order,Education Weight Status Obese Subjective/Other Information MD consult for diet education. Pt stated eating well with no wt loss. 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 Pt admits to eating fast foods but has a cooler and is open to packing healthier optons from home. Discussed with pt healthy foods he could pack for DM and HTN. Discussed the plate method, portions, heart healthy foods with pt. Pt eager to start making healthy changes. #1 Nutrition Diagnosis Food and nutrition-related knowledge deficit Etiology No prior DM and HTN diet education As Evidenced by Signs and Symptoms Pt requesting diet education Nutrition Intervention Teaching Recipient Patient Learning Readiness Good Teaching Methods Discussion,Handout Response to Teaching Verbalize understanding Education Handouts Provided Carbohydrate Counting for people with DM, HTN hand out Barriers to Learning Environmental RD phone number provided Yes Patient aware of follow up options Yes Revisit per MD consult or patient Sign Off request:
[2020-03-01] MEDS: CLINDAMYCIN 600 MG/50 mL 600 MG/50 ML BAG IV SCH ×3 (04:49→20:00)
[2020-03-01] MEDS: hydrALAZINE 25 MG TAB PO SCH ×3 (06:15→23:55)
[2020-03-01] MEDS: INSULIN LISPRO 100 UNIT/ML VIAL 3 mL SUB-Q SCH ×5 (08:47→23:53)
[2020-03-01] MEDS: INSULIN NPH/REGULAR 70/30 INJ SUB-Q SCH ×2 (08:47→17:24)
--- NOTE | 2020-03-01 09:40 | Progress Note ---
Assessment and Plan - Patient Problems (1) [id number] kidney injury Current Visit: Yes Status: Acute Plan to address problem: Agree with current regimen with IV fluid hydration. He likely has at least underlying chronic kidney disease stage III in the setting of diabetes and hypertension. Renal function has improved back to his baseline. Renal function remains stable post revascularization procedure. We will continue to monitor closely. (2) Gangrene of toe of right foot Current Visit: Yes Status: Acute Plan to address problem: Status post right lower extremity revascularization yesterday. No acute issues overnight. We will continue to monitor renal functions daily. Plan for TMA of right 3,4,5th toes tomorrow. (3) Hypertension Current Visit: Yes Status: Acute Qualifiers: Hypertension type: essential hypertension Qualified Code(s): I10 - Essential (primary) hypertension Plan to address problem: Monitor blood pressures on the current regimen. (4) Diabetes mellitus Current Visit: Yes Status: Acute Plan to address problem: Diabetes management per primary attending. Subjective Date of service: 03/01/20 Principal diagnosis: Right foot gangrene Interval history: no acute changes. Plan for TMA of right 3/4/5th toes tomorrow. Objective - Vital Signs Vital signs: Vital Signs - 12hr 02/29/20 02/29/20 03/01/20 22:01 23:02 04:47 Temperature 97.6 F 97.8 F Pulse Rate 67 61 69 Respiratory 18 18 Rate Blood Pressure 150/67 157/63 140/44 O2 Sat by Pulse 95 92 Oximetry 03/01/20 06:15 Temperature Pulse Rate Respiratory Rate Blood Pressure 140/44 O2 Sat by Pulse Oximetry - General Appearance General appearance: well-developed, appears stated age, obese EENT: ATNC Neck: no JVD Respiratory: Present: Clear to Ascultation, Normal Exam Cardiology: regular Gastrointestinal: normal Integumentary: warm and dry Neurologic: no focal deficit, alert and oriented x3 Musculoskeletal: deferred Psychiatric: cooperative - Lab 02/29/20 05:21 02/29/20 05:21 Most recent lab results Calcium 8.9 mg/dL (8.4-10.2) 02/29/20 05:21 Magnesium 2.20 mg/dL (1.7-2.3) 02/25/20 05:32 - Allied health notes Allied health notes reviewed: nursing Medications & Allergies - Medications Allergies/Adverse Reactions: Allergies No Known Allergies Allergy (Unverified 02/23/20 14:44) Active Medications: Generic Name Dose Route Start Last Admin Trade Name Freq PRN Reason Stop Dose Admin Acetaminophen 650 mg 02/24/20 00:13 Acetaminophen 325 Mg Tab PO Q4H PRN Pain MILD(1-3)/Fever >100.5/HART Aspirin 81 mg 02/29/20 10:00 02/29/20 09:36 Aspirin Ec 81 Mg Tab PO 81 mg QDAY SHANNON Administration Cilostazol 100 mg 02/28/20 15:00 02/29/20 22:01 Cilostazol 100 Mg Tab PO 100 mg BID SHANNON Administration Clopidogrel Bisulfate 75 mg 02/29/20 10:00 02/29/20 09:36 Clopidogrel 75 Mg Tab PO 75 mg QDAY SHANNON Administration Dextrose 0 ml 02/24/20 00:13 Dextrose 50% In Water (25gm) 50 Ml Syringe IV Q30MIN PRN Hypoglycemia Protocol Hydralazine HCl 50 mg 02/27/20 14:00 03/01/20 06:15 Hydralazine 25 Mg Tab PO 50 mg Q8HR SHANNON Administration Sodium Chloride 1,000 mls @ 50 mls/hr 02/24/20 00:15 02/27/20 22:17 Nacl 0.9% 1000 Ml IV 75 mls/hr DIRECT SHANNON Administration Clindamycin HCl 600 mg in 50 mls @ 100 mls/hr 02/24/20 04:00 03/01/20 04:49 Cleocin 600 Mg/50 Ml IV 100 mls/hr Q8H SHANNON Administration Protocol Insulin Human Isoph/Insulin Regular 5 unit 02/26/20 17:00 03/01/20 08:47 Insulin Nph/Regular 70/30 Inj SUB-Q 5 unit BIDDIAB SHANNON Administration Insulin Human Lispro 0 unit 02/24/20 07:30 03/01/20 08:47 Insulin Lispro 100 Unit/Ml Vial 3 Ml SUB-Q 2 unit ACHS SHANNON Administration Protocol Magnesium Hydroxide 30 ml 02/24/20 00:13 Magnesium Hydroxide (Mom) Oral Liqd Udc PO Q4H PRN Constipation Metoprolol Tartrate 25 mg 02/27/20 22:00 02/29/20 22:01 Metoprolol Tartrate 25 Mg Tab PO 25 mg BID SHANNON Administration Morphine Sulfate 2 mg 02/24/20 00:13 01/04/21 05:21 Morphine 2 Mg/1 Ml Inj IV 2 mg Q4H PRN Administration Pain, Moderate (4-6) Ondansetron HCl 4 mg 02/24/20 00:13 02/27/20 21:44 Ondansetron 4 Mg/2 Ml Inj IV 4 mg Q8H PRN Administration Nausea And Vomiting Sodium Chloride 10 ml 02/24/20 10:00 02/29/20 22:02 Sodium Chloride 0.9% 10 Ml Flush Syringe IV 10 ml BID SHANNON Administration Sodium Chloride 10 ml 02/24/20 00:13 Sodium Chloride 0.9% 10 Ml Flush Syringe IV PRN PRN LINE FLUSH
[2020-03-01] MEDS: CILOSTAZOL 100 MG TAB PO SCH ×2 (10:39→23:56)
[2020-03-01] MEDS: ASPIRIN EC 81 MG TAB PO SCH (10:39)
[2020-03-01] MEDS: METOPROLOL TARTRATE 25 MG TAB PO SCH ×2 (10:39→23:55)
[2020-03-01] MEDS: CLOPIDOGREL 75 MG TAB PO SCH (10:40)
--- NOTE | 2020-03-01 19:18 | Progress Note ---
Assessment and Plan Assessment and plan: --Patient had successful endovascular revascularization yesterday 02/28/2020 Tolerated the procedure well Patient had some pain with physical therapy Scheduled for TMA right 3,4,5 toes on 03/02/2020 -- Gangrene of right 3,4 and 5 toes Current Visit: Yes Status: Acute Plan to address problem: Continue empiric IV antibiotics. Vascular : evaluated the patient and recommend the patient need to be medically optimized Patient has undergone successful endovascular revascularization 02/28/2020 Surgery scheduled for TMA of the right third fourth and fifth toes on 03/02/2020 -- Hypertension Current Visit: Yes Status: Acute Plan to address problem: We resume routine home medications and monitor vital signs closely. --Arterial insufficiency of lower extremity Current Visit: Yes Status: Acute Plan to address problem: Patient to be evaluated by vascular surgery. --Acute kidney injury/vasomotor nephropathy Current Visit: Yes Status: Acute Plan to address problem: Nephrology following Significant improvement of creatinine level, today 1.6 Patient is receiving IV hopefully it will come down more by tomorrow Closely monitor renal function avoid nephrotoxins --Type II diabetes mellitus Current Visit: Yes Status: Acute Plan to address problem: Accu-Chek sliding scale coverage ADA diet Long-acting insulin as needed --Severe malnutrition/hypoalbuminemia Current Visit: Yes Status: Acute Plan to address problem: Nutrition supplements, nutrition consult Nutrition supplements, nutrition consult And supportive care --DVT prophylaxis Current Visit: Yes Status: Acute. Plan to address problem: Patient placed on sequential compression device. We will hold off anticoagulation in view of possible surgery. --Full code status Current Visit: Yes Status: Acute Plan to address problem: Patient is a full code. Consults evaluation and recommendations noted and appreciated Plan of care reviewed with the patient and his nurse 02/24/2020 :vascular waiting for medical stabilization specially the renal function Creatinine level slowly trending down, avoid nephrotoxins Nephrology and vascular evaluation noted and appreciated 02/25/2020; mild improvement of renal function, nephrology following Possible revascularization on 02/28/2020 And possible amputation of the toe on 02/29/2020, patient is medically stable 02/26/2020; renal function significantly improved creatinine today is 1.6, will continue IV hydration Avoid nephrotoxins, possible revascularization procedure on 02/28/2020 Plan of care reviewed with the patient and his nurse 02/28/2020[patient is scheduled for revascularization vascular procedure today Possible toe amputation tomorrow 02/29/2020; patient tolerated the procedure well receiving therapy 03/01/2020 ;TMA third fourth fifth toes on 03/02/2020 per surgery Closely monitor the patient and adjust the management as needed History Interval history: I have seen and examined the patient in the room this morning 's chart and medications reviewed Patient underwent revascularization of the lower extremity And is scheduled for TMA of the toe tomorrow Patient has no new complaints Vital signs noted Hospitalist Physical - Constitutional Vitals: Temp Pulse Resp BP Pulse Ox 97.0 F L 66 20 178/84 95 03/01/20 16:14 03/01/20 16:14 03/01/20 16:14 03/01/20 16:14 03/01/20 16:14 General appearance: Present: no acute distress, well-nourished, obese - EENT Eyes: Present: PERRL, EOM intact - Neck Neck: Present: supple, normal ROM - Respiratory Respiratory effort: normal Respiratory: bilateral: diminished, negative: rales, rhonchi, wheezing - Cardiovascular Rhythm: regular Heart Sounds: Present: S1 & S2 - Extremities Extremities: abnormal (Right third and fourth toes and foot in dressing) - Abdominal General gastrointestinal: soft, non-tender, non-distended, normal bowel sounds - Integumentary Integumentary: Present: clear, warm - Psychiatric Psychiatric: appropriate mood/affect, cooperative - Neurologic Neurologic: moves all extremities Results - Labs CBC & Chem 7: 02/29/20 05:21 02/29/20 05:21 Labs: Laboratory Last Values WBC 13.7 K/mm3 (4.5-11.0) H 02/29/20 05:21 RBC 4.38 M/mm3 (3.65-5.03) 02/29/20 05:21 Hgb 12.2 gm/dl (11.8-15.2) 02/29/20 05:21 Hct 36.8 % (35.5-45.6) 02/29/20 05:21 MCV 84 fl (84-94) 02/29/20 05:21 MCH 28 pg (28-32) 02/29/20 05:21 MCHC 33 % (32-34) 02/29/20 05:21 RDW 14.0 % (13.2-15.2) 02/29/20 05:21 Plt Count 259 K/mm3 (140-440) 02/29/20 05:21 Lymph % (Auto) 5.8 % (13.4-35.0) L 02/29/20 05:21 [place] % (Auto) 4.2 % (0.0-7.3) 02/29/20 05:21 Eos % (Auto) 0.0 % (0.0-4.3) 02/29/20 05:21 Baso % (Auto) 0.1 % (0.0-1.8) 02/29/20 05:21 Lymph # (Auto) 0.8 K/mm3 (1.2-5.4) L 02/29/20 05:21 [place] # (Auto) 0.6 K/mm3 (0.0-0.8) 02/29/20 05:21 Eos # (Auto) 0.0 K/mm3 (0.0-0.4) 02/29/20 05:21 Baso # (Auto) 0.0 K/mm3 (0.0-0.1) 02/29/20 05:21 Seg Neutrophils % 89.9 % (40.0-70.0) H 02/29/20 05:21 Seg Neutrophils # 12.3 K/mm3 (1.8-7.7) H 02/29/20 05:21 PT 14.2 Sec. (12.2-14.9) 02/25/20 05:32 INR 1.12 (0.87-1.13) 02/25/20 05:32 APTT 36.1 Sec. (24.2-36.6) 02/23/20 18:08 Sodium 131 mmol/L (137-145) L 02/29/20 05:21 Potassium 5.0 mmol/L (3.6-5.0) 02/29/20 05:21 Chloride 102.2 mmol/L (98-107) 02/29/20 05:21 Carbon Dioxide 23 mmol/L (22-30) 02/29/20 05:21 Anion Gap 11 mmol/L 02/29/20 05:21 BUN 21 mg/dL (9-20) H 02/29/20 05:21 Creatinine 1.8 mg/dL (0.8-1.3) H 02/29/20 05:21 Estimated GFR 38 ml/min 02/29/20 05:21 BUN/Creatinine Ratio 12 % 02/29/20 05:21 Glucose 304 mg/dL (75-100) H 02/29/20 05:21 POC Glucose 209 mg/dL (70-105) H 03/01/20 16:13 Hemoglobin A1c 9.8 % (4-6) H 02/26/20 06:31 Calcium 8.9 mg/dL (8.4-10.2) 02/29/20 05:21 Magnesium 2.20 mg/dL (1.7-2.3) 02/25/20 05:32 Total Bilirubin 0.20 mg/dL (0.1-1.2) 02/25/20 05:32 Direct Bilirubin < 0.2 mg/dL (0-0.2) 02/25/20 05:32 Indirect Bilirubin 0.0 mg/dL 02/25/20 05:32 AST 19 units/L (5-40) 02/25/20 05:32 ALT 26 units/L (7-56) 02/25/20 05:32 Alkaline Phosphatase 86 units/L (35-129) 02/25/20 05:32 Total Protein 6.7 g/dL (6.3-8.2) 02/25/20 05:32 Albumin 2.8 g/dL (3.9-5) L 02/25/20 05:32 Albumin/Globulin Ratio 0.7 % 02/25/20 05:32 Pierre/IV: Voiding Method Toilet IV Catheter Type [Left Forearm INT / Saline Lock ] IV Catheter Type [Right INT / Saline Lock Forearm] Active Medications - Current Medications Current Medications: Generic Name Dose Route Start Last Admin Trade Name Freq PRN Reason Stop Dose Admin Acetaminophen 650 mg 02/24/20 00:13 Acetaminophen 325 Mg Tab PO Q4H PRN Pain MILD(1-3)/Fever >100.5/HART Aspirin 81 mg 02/29/20 10:00 03/01/20 10:39 Aspirin Ec 81 Mg Tab PO 81 mg QDAY SHANNON Administration Cilostazol 100 mg 02/28/20 15:00 03/01/20 10:39 Cilostazol 100 Mg Tab PO 100 mg BID SHANNON Administration Clopidogrel Bisulfate 75 mg 02/29/20 10:00 03/01/20 10:40 Clopidogrel 75 Mg Tab PO 75 mg QDAY SHANNON Administration Dextrose 0 ml 02/24/20 00:13 Dextrose 50% In Water (25gm) 50 Ml Syringe IV Q30MIN PRN Hypoglycemia Protocol Hydralazine HCl 50 mg 02/27/20 14:00 03/01/20 13:48 Hydralazine 25 Mg Tab PO 50 mg Q8HR SHANNON Administration Sodium Chloride 1,000 mls @ 50 mls/hr 02/24/20 00:15 02/27/20 22:17 Nacl 0.9% 1000 Ml IV 75 mls/hr DIRECT SHANNON Administration Clindamycin HCl 600 mg in 50 mls @ 100 mls/hr 02/24/20 04:00 03/01/20 12:40 Cleocin 600 Mg/50 Ml IV 100 mls/hr Q8H SHANNON Administration Protocol Insulin Human Isoph/Insulin Regular 5 unit 02/26/20 17:00 03/01/20 17:24 Insulin Nph/Regular 70/30 Inj SUB-Q 5 unit BIDDIAB SHANNON Administration Insulin Human Lispro 0 unit 02/24/20 07:30 03/01/20 17:24 Insulin Lispro 100 Unit/Ml Vial 3 Ml SUB-Q 3 unit ACHS SHANNON Administration Protocol Magnesium Hydroxide 30 ml 02/24/20 00:13 Magnesium Hydroxide (Mom) Oral Liqd Udc PO Q4H PRN Constipation Metoprolol Tartrate 25 mg 02/27/20 22:00 03/01/20 10:39 Metoprolol Tartrate 25 Mg Tab PO 25 mg BID SHANNON Administration Morphine Sulfate 2 mg 02/24/20 00:13 02/28/20 05:21 Morphine 2 Mg/1 Ml Inj IV 2 mg Q4H PRN Administration Pain, Moderate (4-6) Ondansetron HCl 4 mg 02/24/20 00:13 02/27/20 21:44 Ondansetron 4 Mg/2 Ml Inj IV 4 mg Q8H PRN Administration Nausea And Vomiting Sodium Chloride 10 ml 02/24/20 10:00 03/01/20 10:40 Sodium Chloride 0.9% 10 Ml Flush Syringe IV 10 ml BID SHANNON Administration Sodium Chloride 10 ml 02/24/20 00:13 Sodium Chloride 0.9% 10 Ml Flush Syringe IV PRN PRN LINE FLUSH Nutrition/Malnutrition Assess - Dietary Evaluation Nutrition/Malnutrition Findings: Nutrition Notes Start: 02/24/20 12:11 Freq: Status: Active Protocol: Document 03/01/20 12:32 DELICIA (Rec: 03/01/20 12:34 DELICIA [id number]) Co-Sign 03/01/20 12:32 MK Nutrition Notes Need for Assessment generated from: LOS Initial or Follow up Brief Note Current Diagnosis Diabetes Current Diet Consistent CHO Subjective/Other Information LOS. Pt had no f/u questions about diet ed. Pt continues to eat well. Nutrition Intervention Revisit per MD consult or patient Sign Off request:
[2020-03-02 05:47] LABS: Basophils # (Auto) 0.1 K/mm3 (0.0-0.1); Basophils % (Auto) 1.2 % (0.0-1.8); Eosinophils # (Auto) 0.1 K/mm3 (0.0-0.4); Eosinophils % (Auto) 1.4 % (0.0-4.3); Hematocrit 37.8 % (35.5-45.6); Hemoglobin 12.5 gm/dl (11.8-15.2); Lymphocytes # (Auto) 1.5 K/mm3 (1.2-5.4); Lymphocytes % (Auto) 17.8 % (13.4-35.0); Mean Corpuscular HGB Conc 33 % (32-34); Mean Corpuscular Volume 84 fl (84-94); Monocytes # (Auto) 0.8 K/mm3 (0.0-0.8); Platelet Count 244 K/mm3 (140-440); Red Cell Distribution Width 14.2 % (13.2-15.2)
[2020-03-02] MEDS: hydrALAZINE 25 MG TAB PO SCH ×3 (06:09→21:49)
[2020-03-02] MEDS: CLINDAMYCIN 600 MG/50 mL 600 MG/50 ML BAG IV SCH ×3 (06:13→21:49)
[2020-03-02] MEDS: INSULIN LISPRO 100 UNIT/ML VIAL 3 mL SUB-Q SCH ×4 (07:30→22:39)
[2020-03-02] MEDS: INSULIN NPH/REGULAR 70/30 INJ SUB-Q SCH ×2 (09:30→18:25)
[2020-03-02] MEDS ORDERED: HYDROmorphone 1 MG/1 ML INJ ONE (10:26)
[2020-03-02] MEDS ORDERED: propofoL 200 MG/20 ML VIAL IV ONE (10:26)
[2020-03-02] MEDS ORDERED: LIDOCAINE MPF (2%) 20 MG/1 ML VIAL 5 ML ONE (10:27)
[2020-03-02] MEDS: METOPROLOL TARTRATE 25 MG TAB PO SCH ×2 (10:28→21:49)
[2020-03-02] MEDS: CILOSTAZOL 100 MG TAB PO SCH ×2 (10:55→21:49)
--- NOTE | 2020-03-02 10:55 | Anesthesia Consultation ---
Anesthesia Consult and Med Hx Date of service: 03/02/20 - Airway Anesthetic Teeth Evaluation: Poor ROM Head & Neck: Adequate Mental/Hyoid Distance: Adequate Mallampati Class: Class III Intubation Access Assessment: Possibly Difficult - Pulmonary Exam CTA: Yes - Cardiac Exam Cardiac Exam: RRR - Pre-Operative Health Status ASA Pre-Surgery Classification: ASA3 Proposed Anesthetic Plan: General - Pulmonary Hx Respiratory Symptoms: No - Cardiovascular System Hx Hypertension: Yes Hx Peripheral Vascular Disease: Yes (PAD s/p revascularization c/b gangrene of RLE) - Central Nervous System CVA: No - Endocrine Hx Renal Disease: Yes (KYMBERLY) Hx Liver Disease: No Hx Insulin Dependent Diabetes: Yes Hx Thyroid Disease: No - Hematic Hx Anemia: No - Other Systems Hx Obesity: Yes (BMI 37) - Additional Comments Anesthesia Medical History Comments: No hx anesthetic complications.
[2020-03-02] MEDS: ASPIRIN EC 81 MG TAB PO SCH (10:56)
[2020-03-02] MEDS: CLOPIDOGREL 75 MG TAB PO SCH (10:56)
--- NOTE | 2020-03-02 10:56 | Anesthesia Day of Surgery ---
Anesthesia Day of Surgery - Day of Surgery Patient Examined: Yes Patient H&P Reviewed: Yes Patient is NPO: Yes Beta Blockers: Yes (metoprolol today AM)
[2020-03-02] MEDS ORDERED: SODIUM CHLORIDE 0.9% IRR 1,500 ML BOTTLE IR ONE (11:36)
[2020-03-02] MEDS ORDERED: ONDANSETRON 4 MG/2 ML INJ ONE (12:15)
[2020-03-02] MEDS ORDERED: SODIUM CHLORIDE 0.9% 1000 ML 1,000 ML ONE (12:27)
--- NOTE | 2020-03-02 12:28 | Procedure Note ---
Date of procedure: 03/02/20 Pre-op diagnosis: 1) Osteomyelitis of right 3rd toe 2) Gangrene of right 4th toe Post-op diagnosis: same Procedure: TMA of right 3rd (remaining), 4th and 5th toes Description of procedure: Pt was placed supine on the OR table. General anesthesia was administered. Right foot was prepped and draped. A tear drop incision was made about the 3rd, 4th and 5th toes and the toes amputated as one specimen through the MTP joints. Periosteum was elevated off of the distal shafts of the 3rd, 4th and 5th toes. The distal metatarsal shafts were then amputated with a bone saw and the metatarsal heads passed off the table as 3 separate specimens. Hemostasis was obtained with the Bovie. Wound was irrigated with warm saline. The wound was then loosely approximated with a single vertical mattress suture of 3-0 Nylon placed at the mid-portion of the wound. The wound was then packed on either side of the vertical mattress suture with a dilute Betadine moistened Kerlix roll followed by dry 4 X 4's over the wound. Finally, the foot was dressed with Kerlix followed by Coban wraps. Pt tolerated the procedure well. He was taken to PACU in stable condition. Anesthesia: other (LMA) Surgeon: LJ VEGA Estimated blood loss: 50-100ml Pathology: list (1) Right 3rd (remaining) toe and right 4th & 5th toes 2) Right 3rd, 4th and 5th metatarsal heads) Specimen disposition: to lab Condition: stable Disposition: PACU
[2020-03-02] MEDS ORDERED: ONDANSETRON 4 MG/2 ML INJ IV PRN (12:47)
[2020-03-02] MEDS ORDERED: HYDROmorphone 1 MG/1 ML INJ IV PRN (12:47)
--- NOTE | 2020-03-02 14:10 | Progress Note ---
Assessment and Plan - Patient Problems (1) [id number] kidney injury Current Visit: Yes Status: Acute Plan to address problem: Agree with current regimen with IV fluid hydration. He likely has at least underlying chronic kidney disease stage III in the setting of diabetes and hypertension. Renal function has improved back to his baseline. Renal function remains stable post revascularization procedure. We will continue to monitor closely. (2) Gangrene of toe of right foot Current Visit: Yes Status: Acute Plan to address problem: Status post right lower extremity revascularization yesterday. No acute issues overnight. We will continue to monitor renal functions daily. S/P TMA of right 3,4,5th toes POD 0. (3) Hypertension Current Visit: Yes Status: Acute Qualifiers: Hypertension type: essential hypertension Qualified Code(s): I10 - Essential (primary) hypertension Plan to address problem: Monitor blood pressures on the current regimen. (4) Diabetes mellitus Current Visit: Yes Status: Acute Plan to address problem: Diabetes management per primary attending. Subjective Date of service: 03/02/20 Principal diagnosis: Right foot gangrene Interval history: No acute issues. Patient just came back from surgery, s/p right 3rd/4th/5th toe TMA. Renal function reviewed and is stable. Objective - Vital Signs Vital signs: Vital Signs - 12hr 03/02/20 03/02/20 03/02/20 05:22 06:09 07:30 Temperature 97.9 F 97.8 F Pulse Rate 75 75 72 Respiratory 18 20 Rate Blood Pressure 132/48 132/48 Blood Pressure 144/60 [Right] O2 Sat by Pulse 93 96 Oximetry 03/02/20 03/02/20 03/02/20 12:20 12:25 12:30 Temperature 97.6 F Pulse Rate 63 63 63 Respiratory 12 12 12 Rate Blood Pressure 152/80 163/76 154/81 Blood Pressure [Right] O2 Sat by Pulse 97 98 97 Oximetry 03/02/20 03/02/20 12:45 13:00 Temperature 97.5 F L Pulse Rate 60 60 Respiratory 12 12 Rate Blood Pressure 145/74 145/77 Blood Pressure [Right] O2 Sat by Pulse 97 98 Oximetry - General Appearance General appearance: appears stated age EENT: ATNC Neck: no JVD Respiratory: Present: Clear to Ascultation Cardiology: regular Gastrointestinal: normal Neurologic: no focal deficit - Lab 03/02/20 05:35 03/02/20 05:35 Most recent lab results Calcium 9.0 mg/dL (8.4-10.2) 03/02/20 05:35 Magnesium 2.20 mg/dL (1.7-2.3) 02/25/20 05:32 - Allied health notes Allied health notes reviewed: nursing Medications & Allergies - Medications Allergies/Adverse Reactions: Allergies No Known Allergies Allergy (Unverified 02/23/20 14:44) Active Medications: Generic Name Dose Route Start Last Admin Trade Name Freq PRN Reason Stop Dose Admin Acetaminophen 650 mg 02/24/20 00:13 Acetaminophen 325 Mg Tab PO Q4H PRN Pain MILD(1-3)/Fever >100.5/HART Aspirin 81 mg 02/29/20 10:00 03/01/20 10:39 Aspirin Ec 81 Mg Tab PO 81 mg QDAY SHANNON Administration Cilostazol 100 mg 02/28/20 15:00 03/01/20 23:56 Cilostazol 100 Mg Tab PO 100 mg BID SHANNON Administration Clopidogrel Bisulfate 75 mg 02/29/20 10:00 03/01/20 10:40 Clopidogrel 75 Mg Tab PO 75 mg QDAY SHANNON Administration Dextrose 0 ml 02/24/20 00:13 Dextrose 50% In Water (25gm) 50 Ml Syringe IV Q30MIN PRN Hypoglycemia Protocol Hydralazine HCl 50 mg 02/27/20 14:00 03/02/20 06:09 Hydralazine 25 Mg Tab PO 50 mg Q8HR SHANNON Administration Hydromorphone HCl 0.5 mg 03/02/20 12:47 03/02/20 12:50 Hydromorphone 1 Mg/1 Ml Inj IV 03/02/20 23:59 0.5 mg Q10MIN PRN Administration Pain , Severe (7-10) Sodium Chloride 1,000 mls @ 50 mls/hr 02/24/20 00:15 02/27/20 22:17 Nacl 0.9% 1000 Ml IV 75 mls/hr DIRECT SHANNON Administration Clindamycin HCl 600 mg in 50 mls @ 100 mls/hr 02/24/20 04:00 03/02/20 06:13 Cleocin 600 Mg/50 Ml IV 100 mls/hr Q8H SHANNON Administration Protocol Insulin Human Isoph/Insulin Regular 5 unit 02/26/20 17:00 03/02/20 09:30 Insulin Nph/Regular 70/30 Inj SUB-Q Not Given BIDDIAB [facility] Insulin Human Lispro 0 unit 02/24/20 07:30 03/02/20 07:30 Insulin Lispro 100 Unit/Ml Vial 3 Ml SUB-Q Not Given ACHS [facility] Protocol Magnesium Hydroxide 30 ml 02/24/20 00:13 Magnesium Hydroxide (Mom) Oral Liqd Udc PO Q4H PRN Constipation Metoprolol Tartrate 25 mg 02/27/20 22:00 03/02/20 10:28 Metoprolol Tartrate 25 Mg Tab PO 25 mg BID [facility] Administration Morphine Sulfate 2 mg 02/24/20 00:13 02/28/20 05:21 Morphine 2 Mg/1 Ml Inj IV 2 mg Q4H PRN Administration Pain, Moderate (4-6) Ondansetron HCl 4 mg 02/24/20 00:13 02/27/20 21:44 Ondansetron 4 Mg/2 Ml Inj IV 4 mg Q8H PRN Administration Nausea And Vomiting Ondansetron HCl 4 mg 03/02/20 12:47 Ondansetron 4 Mg/2 Ml Inj IV ONCE PRN Nausea And Vomiting Sodium Chloride 10 ml 02/24/20 10:00 03/01/20 22:00 Sodium Chloride 0.9% 10 Ml Flush Syringe IV 10 ml BID SHANNON Administration Sodium Chloride 10 ml 02/24/20 00:13 Sodium Chloride 0.9% 10 Ml Flush Syringe IV PRN PRN LINE FLUSH
--- NOTE | 2020-03-02 14:25 | Post Anesthesia Evaluation ---
- Post Anesthesia Evaluation Patient Participated: Yes Airway Patent: Yes Stable Respiratory Function: Yes Nausea/Vomiting: No Temp > 96.8F: Yes Pain Manageable: Yes Adequeate Hydration: Yes Anesthesia Complications: No
--- NOTE | 2020-03-02 15:38 | Progress Note ---
Assessment and Plan Assessment and plan: --Patient with osteomyelitis of right 3rd toe and gangrene of right 4th toe was evaluated by surgery and vascular The patient underwent endovascular revascularization on 02/28/2020 And TMA of the third remaining toe and fourth and fifth toes this morning 03/02/2020, postop care per Ortho Continue pain medications, wound and supportive care. -- Gangrene of right 3,4 and 5 toes Current Visit: Yes Status: Acute Plan to address problem: Continue empiric IV antibiotics. Vascular : evaluated the patient s/p endovascular revascularization 02/28/2020 s/p TMA of the right third fourth and fifth toes on 03/02/2020 -- Hypertension Current Visit: Yes Status: Acute Plan to address problem: We resume routine home medications and monitor vital signs closely. --Arterial insufficiency of lower extremity Current Visit: Yes Status: Acute Plan to address problem: Patient to be evaluated by vascular surgery. --Acute kidney injury/vasomotor nephropathy Current Visit: Yes Status: Acute Plan to address problem: Nephrology following Significant improvement of creatinine level, today 1.6 Patient is receiving IV hopefully it will come down more by tomorrow Closely monitor renal function avoid nephrotoxins --Type II diabetes mellitus Current Visit: Yes Status: Acute Plan to address problem: Accu-Chek sliding scale coverage ADA diet Long-acting insulin as needed --Severe malnutrition/hypoalbuminemia Current Visit: Yes Status: Acute Plan to address problem: Nutrition supplements, nutrition consult Nutrition supplements, nutrition consult And supportive care --DVT prophylaxis Current Visit: Yes Status: Acute. Plan to address problem: Patient placed on sequential compression device. We will hold off anticoagulation in view of possible surgery. --Full code status Current Visit: Yes Status: Acute Plan to address problem: Patient is a full code. Consults evaluation and recommendations noted and appreciated Plan of care reviewed with the patient and his nurse 02/24/2020 :vascular waiting for medical stabilization specially the renal function Creatinine level slowly trending down, avoid nephrotoxins Nephrology and vascular evaluation noted and appreciated 02/25/2020; mild improvement of renal function, nephrology following Possible revascularization on 02/28/2020 And possible amputation of the toe on 02/29/2020, patient is medically stable 02/26/2020; renal function significantly improved creatinine today is 1.6, will continue IV hydration Avoid nephrotoxins, possible revascularization procedure on 02/28/2020 Plan of care reviewed with the patient and his nurse 02/28/2020[patient is scheduled for revascularization vascular procedure today Possible toe amputation tomorrow 02/29/2020; patient tolerated the procedure well receiving therapy 03/01/2020 ;TMA third fourth fifth toes on 03/02/2020 per surgery 03/02/2020: S/P TMA third fourth fifth toes .Continue postop and wound care Closely monitor the patient and adjust the management as needed Brief history: Patient with a history of peripheral vascular disease with gangrene of his right fourth toe. He was recently discharged from [facility] with wet gangrene of his right fourth toe and placed on oral antibiotics. The patient was then seen in our office for potential revascularization however, at that time his wet gangrene was noted in addition, the patient has developed a component of acute on chronic renal failure. Patient was evaluated by vascular underwent revascularization on 02/28/2020, followed by TMA right third fourth fifth toe today[03/02/2020] Follow vascular and surgical recommendations discharge when stable History Interval history: Patient with osteomyelitis of right 3rd toe and gangrene of right 4th toe was evaluated by surgery and patient underwent TMA of the third remaining toe and fourth and fifth toes this morning Patient tolerated the procedure well Patient complains of some pain Alert awake not in acute distress Vital signs noted Hospitalist Physical - Constitutional Vitals: Temp Pulse Resp BP Pulse Ox 97.5 F L 60 12 145/77 98 03/02/20 12:45 03/02/20 13:00 03/02/20 13:00 03/02/20 13:00 03/02/20 13:00 General appearance: Present: no acute distress, well-nourished, obese - EENT Eyes: Present: PERRL, EOM intact - Neck Neck: Present: supple, normal ROM - Respiratory Respiratory effort: normal Respiratory: bilateral: diminished, negative: rales, rhonchi, wheezing - Cardiovascular Rhythm: regular Heart Sounds: Present: S1 & S2 - Extremities Extremities: abnormal (Right foot in dressing) - Abdominal General gastrointestinal: soft, non-tender, non-distended, normal bowel sounds - Integumentary Integumentary: Present: clear, warm - Psychiatric Psychiatric: appropriate mood/affect, cooperative - Neurologic Neurologic: moves all extremities Results - Labs CBC & Chem 7: 03/02/20 05:35 03/02/20 05:35 Labs: Laboratory Last Values WBC 8.5 K/mm3 (4.5-11.0) 03/02/20 05:35 RBC 4.50 M/mm3 (3.65-5.03) 03/02/20 05:35 Hgb 12.5 gm/dl (11.8-15.2) 03/02/20 05:35 Hct 37.8 % (35.5-45.6) 03/02/20 05:35 MCV 84 fl (84-94) 03/02/20 05:35 MCH 28 pg (28-32) 03/02/20 05:35 MCHC 33 % (32-34) 03/02/20 05:35 RDW 14.2 % (13.2-15.2) 03/02/20 05:35 Plt Count 244 K/mm3 (140-440) 03/02/20 05:35 Lymph % (Auto) 17.8 % (13.4-35.0) 03/02/20 05:35 [place] % (Auto) 9.0 % (0.0-7.3) H 03/02/20 05:35 Eos % (Auto) 1.4 % (0.0-4.3) 03/02/20 05:35 Baso % (Auto) 1.2 % (0.0-1.8) 03/02/20 05:35 Lymph # (Auto) 1.5 K/mm3 (1.2-5.4) 03/02/20 05:35 [place] # (Auto) 0.8 K/mm3 (0.0-0.8) 03/02/20 05:35 Eos # (Auto) 0.1 K/mm3 (0.0-0.4) 03/02/20 05:35 Baso # (Auto) 0.1 K/mm3 (0.0-0.1) 03/02/20 05:35 Seg Neutrophils % 70.6 % (40.0-70.0) H 03/02/20 05:35 Seg Neutrophils # 6.0 K/mm3 (1.8-7.7) 03/02/20 05:35 PT 14.2 Sec. (12.2-14.9) 02/25/20 05:32 INR 1.12 (0.87-1.13) 02/25/20 05:32 APTT 36.1 Sec. (24.2-36.6) 02/23/20 18:08 Sodium 136 mmol/L (137-145) L 03/02/20 05:35 Potassium 4.5 mmol/L (3.6-5.0) 03/02/20 05:35 Chloride 102.8 mmol/L (98-107) 03/02/20 05:35 Carbon Dioxide 27 mmol/L (22-30) 03/02/20 05:35 Anion Gap 11 mmol/L 03/02/20 05:35 BUN 22 mg/dL (9-20) H 03/02/20 05:35 Creatinine 1.8 mg/dL (0.8-1.3) H 03/02/20 05:35 Estimated GFR 38 ml/min 03/02/20 05:35 BUN/Creatinine Ratio 12 % 03/02/20 05:35 Glucose 179 mg/dL (75-100) H 03/02/20 05:35 POC Glucose 177 mg/dL (70-105) H 03/02/20 12:29 Hemoglobin A1c 9.8 % (4-6) H 02/26/20 06:31 Calcium 9.0 mg/dL (8.4-10.2) 03/02/20 05:35 Magnesium 2.20 mg/dL (1.7-2.3) 02/25/20 05:32 Total Bilirubin 0.20 mg/dL (0.1-1.2) 02/25/20 05:32 Direct Bilirubin < 0.2 mg/dL (0-0.2) 02/25/20 05:32 Indirect Bilirubin 0.0 mg/dL 02/25/20 05:32 AST 19 units/L (5-40) 02/25/20 05:32 ALT 26 units/L (7-56) 02/25/20 05:32 Alkaline Phosphatase 86 units/L (35-129) 02/25/20 05:32 Total Protein 6.7 g/dL (6.3-8.2) 02/25/20 05:32 Albumin 2.8 g/dL (3.9-5) L 02/25/20 05:32 Albumin/Globulin Ratio 0.7 % 02/25/20 05:32 Pierre/IV: Voiding Method Toilet IV Catheter Type [Left Forearm INT / Saline Lock ] IV Catheter Type [Right INT / Saline Lock Forearm] Active Medications - Current Medications Current Medications: Generic Name Dose Route Start Last Admin Trade Name Freq PRN Reason Stop Dose Admin Acetaminophen 650 mg 02/24/20 00:13 Acetaminophen 325 Mg Tab PO Q4H PRN Pain MILD(1-3)/Fever >100.5/HART Aspirin 81 mg 02/29/20 10:00 03/01/20 10:39 Aspirin Ec 81 Mg Tab PO 81 mg QDAY SHANNON Administration Cilostazol 100 mg 02/28/20 15:00 03/01/20 23:56 Cilostazol 100 Mg Tab PO 100 mg BID SHANNON Administration Clopidogrel Bisulfate 75 mg 02/29/20 10:00 03/01/20 10:40 Clopidogrel 75 Mg Tab PO 75 mg QDAY SHANNON Administration Dextrose 0 ml 02/24/20 00:13 Dextrose 50% In Water (25gm) 50 Ml Syringe IV Q30MIN PRN Hypoglycemia Protocol Hydralazine HCl 50 mg 02/27/20 14:00 03/02/20 06:09 Hydralazine 25 Mg Tab PO 50 mg Q8HR SHANNON Administration Hydromorphone HCl 0.5 mg 03/02/20 12:47 03/02/20 12:50 Hydromorphone 1 Mg/1 Ml Inj IV 03/02/20 23:59 0.5 mg Q10MIN PRN Administration Pain , Severe (7-10) Sodium Chloride 1,000 mls @ 50 mls/hr 02/24/20 00:15 02/27/20 22:17 Nacl 0.9% 1000 Ml IV 75 mls/hr DIRECT SHANNON Administration Clindamycin HCl 600 mg in 50 mls @ 100 mls/hr 02/24/20 04:00 03/02/20 06:13 Cleocin 600 Mg/50 Ml IV 100 mls/hr Q8H SHANNON Administration Protocol Insulin Human Isoph/Insulin Regular 5 unit 02/26/20 17:00 03/02/20 09:30 Insulin Nph/Regular 70/30 Inj SUB-Q Not Given BIDDIAB SHANNON Insulin Human Lispro 0 unit 02/24/20 07:30 03/02/20 07:30 Insulin Lispro 100 Unit/Ml Vial 3 Ml SUB-Q Not Given ACHS [facility] Protocol Magnesium Hydroxide 30 ml 02/24/20 00:13 Magnesium Hydroxide (Mom) Oral Liqd Udc PO Q4H PRN Constipation Metoprolol Tartrate 25 mg 02/27/20 22:00 03/02/20 10:28 Metoprolol Tartrate 25 Mg Tab PO 25 mg BID SHANNON Administration Morphine Sulfate 2 mg 02/24/20 00:13 02/28/20 05:21 Morphine 2 Mg/1 Ml Inj IV 2 mg Q4H PRN Administration Pain, Moderate (4-6) Ondansetron HCl 4 mg 02/24/20 00:13 02/27/20 21:44 Ondansetron 4 Mg/2 Ml Inj IV 4 mg Q8H PRN Administration Nausea And Vomiting Ondansetron HCl 4 mg 03/02/20 12:47 Ondansetron 4 Mg/2 Ml Inj IV ONCE PRN Nausea And Vomiting Sodium Chloride 10 ml 02/24/20 10:00 03/01/20 22:00 Sodium Chloride 0.9% 10 Ml Flush Syringe IV 10 ml BID SHANNON Administration Sodium Chloride 10 ml 02/24/20 00:13 Sodium Chloride 0.9% 10 Ml Flush Syringe IV PRN PRN LINE FLUSH Nutrition/Malnutrition Assess - Dietary Evaluation Nutrition/Malnutrition Findings: Nutrition Notes Start: 02/24/20 12:11 Freq: Status: Active Protocol: Document 03/01/20 12:32 DELICIA (Rec: 03/01/20 12:34 DELICIA [id number]) Co-Sign 03/01/20 12:32 MK Nutrition Notes Need for Assessment generated from: LOS Initial or Follow up Brief Note Current Diagnosis Diabetes Current Diet Consistent CHO Subjective/Other Information LOS. Pt had no f/u questions about diet ed. Pt continues to eat well. Nutrition Intervention Revisit per MD consult or patient Sign Off request:
[2020-03-02] MEDS: MORPHINE 2 MG/1 ML INJ IV PRN (19:23)
[2020-03-03] MEDS: MORPHINE 2 MG/1 ML INJ IV PRN ×6 (00:10→21:06)
[2020-03-03] MEDS: CLINDAMYCIN 600 MG/50 mL 600 MG/50 ML BAG IV SCH ×3 (05:09→21:05)
[2020-03-03] MEDS: hydrALAZINE 25 MG TAB PO SCH ×3 (05:10→21:06)
[2020-03-03 06:22] LABS: Basophils # (Auto) 0.1 K/mm3 (0.0-0.1); Basophils % (Auto) 0.6 % (0.0-1.8); Eosinophils # (Auto) 0.1 K/mm3 (0.0-0.4); Eosinophils % (Auto) 0.8 % (0.0-4.3); Hematocrit 36.5 % (35.5-45.6); Hemoglobin 12.1 gm/dl (11.8-15.2); Lymphocytes # (Auto) 1.2 K/mm3 (1.2-5.4); Lymphocytes % (Auto) 11.1 % (13.4-35.0); Mean Corpuscular HGB Conc 33 % (32-34); Mean Corpuscular Volume 84 fl (84-94); Monocytes # (Auto) 0.9 K/mm3 (0.0-0.8); Monocytes % (Auto) 8.2 % (0.0-7.3); Platelet Count 236 K/mm3 (140-440); Red Blood Count 4.33 M/mm3 (3.65-5.03); Red Cell Distribution Width 14.2 % (13.2-15.2)
[2020-03-03 06:37] LABS: Calcium 8.7 mg/dL (8.4-10.2)
[2020-03-03] MEDS: INSULIN NPH/REGULAR 70/30 INJ SUB-Q SCH ×2 (08:52→17:10)
[2020-03-03] MEDS: INSULIN LISPRO 100 UNIT/ML VIAL 3 mL SUB-Q SCH ×4 (08:53→23:12)
[2020-03-03] MEDS: METOPROLOL TARTRATE 25 MG TAB PO SCH ×3 (08:53→21:06)
[2020-03-03] MEDS: CILOSTAZOL 100 MG TAB PO SCH ×3 (08:54→21:06)
[2020-03-03] MEDS: ASPIRIN EC 81 MG TAB PO SCH ×2 (08:54→10:28)
[2020-03-03] MEDS: CLOPIDOGREL 75 MG TAB PO SCH ×2 (08:54→10:29)
--- NOTE | 2020-03-03 09:58 | Progress Note ---
Assessment and Plan - Patient Problems (1) Bxezl-[id number] kidney injury Current Visit: Yes Status: Acute Plan to address problem: Agree with current regimen with IV fluid hydration.Recommend that as he is able to increase his oral intake, to wean down on his continuous IVF. He likely has at least underlying chronic kidney disease stage III in the setting of diabetes and hypertension. Renal function has improved back to his baseline. Renal func tion remains stable post revascularization procedure as well as Right 3rd/4th/5th toe TMA. We will continue to monitor closely. (2) Gangrene of toe of right foot Current Visit: Yes Status: Acute Plan to address problem: Status post right lower extremity revascularization yesterday. No acute issues overnight. We will continue to monitor renal functions daily. S/P TMA of right 3,4,5th toes POD 1. (3) Hypertension Current Visit: Yes Status: Acute Qualifiers: Hypertension type: essential hypertension Qualified Code(s): I10 - Essential (primary) hypertension Plan to address problem: Monitor blood pressures on the current regimen. As his appetite improves, would recommend that we wean off his continuous IVF. (4) Diabetes mellitus Current Visit: Yes Status: Acute Plan to address problem: Diabetes management per primary attending. Subjective Date of service: 03/03/20 Principal diagnosis: Right foot gangrene Interval history: No acute issues. Labs reviewed, and overall renal function remains stable. Objective - Vital Signs Vital signs: Vital Signs - 12hr 03/02/20 03/03/20 03/03/20 22:00 00:10 00:20 Temperature 97.9 F Pulse Rate 71 Respiratory 20 20 Rate Respiratory 20 Rate [Right Toe ] Blood Pressure 172/75 O2 Sat by Pulse 94 Oximetry 03/03/20 03/03/20 03/03/20 01:39 04:46 05:10 Temperature 98.0 F Pulse Rate 71 71 Respiratory 20 18 20 Rate Respiratory Rate [Right Toe ] Blood Pressure 176/79 176/79 O2 Sat by Pulse 94 Oximetry 03/03/20 07:44 Temperature 98.0 F Pulse Rate 70 Respiratory 18 Rate Respiratory Rate [Right Toe ] Blood Pressure 170/69 O2 Sat by Pulse 96 Oximetry - General Appearance General appearance: appears stated age, obese EENT: ATNC Neck: no JVD, no thyromegaly Respiratory: Present: Clear to Ascultation, Normal Exam Cardiology: regular Gastrointestinal: normal, normoactive bowel sounds Integumentary: warm and dry Neurologic: no focal deficit Musculoskeletal: deferred Psychiatric: mood/affect appropriate - Lab 03/03/20 05:33 03/03/20 05:33 Most recent lab results Calcium 8.7 mg/dL (8.4-10.2) 03/03/20 05:33 Magnesium 2.20 mg/dL (1.7-2.3) 02/25/20 05:32 - Allied health notes Allied health notes reviewed: nursing Medications & Allergies - Medications Allergies/Adverse Reactions: Allergies No Known Allergies Allergy (Unverified 02/23/20 14:44) Active Medications: Generic Name Dose Route Start Last Admin Trade Name Freq PRN Reason Stop Dose Admin Acetaminophen 650 mg 02/24/20 00:13 Acetaminophen 325 Mg Tab PO Q4H PRN Pain MILD(1-3)/Fever >100.5/HART Aspirin 81 mg 02/29/20 10:00 03/03/20 08:54 Aspirin Ec 81 Mg Tab PO 81 mg QDAY SHANNON Administration Cilostazol 100 mg 02/28/20 15:00 03/03/20 08:54 Cilostazol 100 Mg Tab PO 100 mg BID SHANNON Administration Clopidogrel Bisulfate 75 mg 02/29/20 10:00 03/03/20 08:54 Clopidogrel 75 Mg Tab PO 75 mg QDAY SHANNON Administration Dextrose 0 ml 02/24/20 00:13 Dextrose 50% In Water (25gm) 50 Ml Syringe IV Q30MIN PRN Hypoglycemia Protocol Hydralazine HCl 50 mg 02/27/20 14:00 03/03/20 05:10 Hydralazine 25 Mg Tab PO 50 mg Q8HR SHANNON Administration Sodium Chloride 1,000 mls @ 50 mls/hr 02/24/20 00:15 02/27/20 22:17 Nacl 0.9% 1000 Ml IV 75 mls/hr DIRECT SHANNON Administration Clindamycin HCl 600 mg in 50 mls @ 100 mls/hr 02/24/20 04:00 03/03/20 05:09 Cleocin 600 Mg/50 Ml IV 100 mls/hr Q8H SHANNON Administration Protocol Insulin Human Isoph/Insulin Regular 5 unit 02/26/20 17:00 03/03/20 08:52 Insulin Nph/Regular 70/30 Inj SUB-Q 5 unit BIDDIAB [facility]ANNON Administration Insulin Human Lispro 0 unit 02/24/20 07:30 03/03/20 08:53 Insulin Lispro 100 Unit/Ml Vial 3 Ml SUB-Q 2 unit ACHS SHANNON Administration Protocol Magnesium Hydroxide 30 ml 02/24/20 00:13 Magnesium Hydroxide (Mom) Oral Liqd Udc PO Q4H PRN Constipation Metoprolol Tartrate 25 mg 02/27/20 22:00 03/03/20 08:53 Metoprolol Tartrate 25 Mg Tab PO 25 mg BID SHANNON Administration Morphine Sulfate 2 mg 02/24/20 00:13 03/03/20 08:52 Morphine 2 Mg/1 Ml Inj IV 2 mg Q4H PRN Administration Pain, Moderate (4-6) Ondansetron HCl 4 mg 02/24/20 00:13 02/27/20 21:44 Ondansetron 4 Mg/2 Ml Inj IV 4 mg Q8H PRN Administration Nausea And Vomiting Ondansetron HCl 4 mg 03/02/20 12:47 Ondansetron 4 Mg/2 Ml Inj IV ONCE PRN Nausea And Vomiting Sodium Chloride 10 ml 02/24/20 10:00 03/03/20 08:52 Sodium Chloride 0.9% 10 Ml Flush Syringe IV 10 ml BID SHANNON Administration Sodium Chloride 10 ml 02/24/20 00:13 Sodium Chloride 0.9% 10 Ml Flush Syringe IV PRN PRN LINE FLUSH
--- NOTE | 2020-03-03 19:11 | Progress Note ---
Assessment and Plan Assessment and Plan Assessment and plan: --Patient with osteomyelitis of right 3rd toe and gangrene of right 4th toe was evaluated by surgery and vascular The patient underwent endovascular revascularization on 02/28/2020 And TMA of the third remaining toe and fourth and fifth toes this morning 2020, postop care per Ortho Continue pain medications, wound and supportive care. -- Gangrene of right 3,4 and 5 toes Current Visit: Yes Status: Acute Plan to address problem: Continue empiric IV antibiotics. Vascular : evaluated the patient s/p endovascular revascularization 02/28/2020 s/p TMA of the right third fourth and fifth toes on 03/02/2020 -- Hypertension Current Visit: Yes Status: Acute Plan to address problem: We resume routine home medications and monitor vital signs closely. --Arterial insufficiency of lower extremity Current Visit: Yes Status: Acute Plan to address problem: Patient to be evaluated by vascular surgery. --Acute kidney injury/vasomotor nephropathy Current Visit: Yes Status: Acute Plan to address problem: Nephrology following Significant improvement of creatinine level, today 1.6 Patient is receiving IV hopefully it will come down more by tomorrow Closely monitor renal function avoid nephrotoxins --Type II diabetes mellitus Current Visit: Yes Status: Acute Plan to address problem: Accu-Chek sliding scale coverage ADA diet Long-acting insulin as needed --Severe malnutrition/hypoalbuminemia Current Visit: Yes Status: Acute Plan to address problem: Nutrition supplements, nutrition consult Nutrition supplements, nutrition consult And supportive care --DVT prophylaxis Current Visit: Yes Status: Acute. Plan to address problem: Patient placed on sequential compression device. We will hold off anticoagulation in view of possible surgery. Subjective Date of service: 03/03/20 Principal diagnosis: Right foot gangrene Interval history: 64-year-old male with known history of coronary artery disease, hypertension, CHF, diabetes mellitus and chronic kidney disease sent in to the emergency room today by the vascular surgeon Dr. Shearer for suspicious gangrenous right fourth toe. Patient was recently seen at [facility] and placed on some antibiotics and subsequently discharged home. He was also seen yesterday by his wheel worker Dr. Martin and was subsequently referred to the vascular surgeon for possible revascularization. However patient had a worsening renal function and therefore procedure was canceled. He was subsequently sent into the emergency room for further evaluation. Patient denies any fever or chills, no chest pain or shortness of breath, no nausea vomiting, no headache or dizziness, no hematuria or dysuria. Work-up in the emergency room today reveals a slightly elevated white count of 11.2 and a mild hyponatremia of 133. Patient was commenced on empiric IV antibiotics for right foot wound/gangrene. General surgery, vascular surgery, and delicatessen store manager have been consulted by the ER physician. Objective - Constitutional Vitals: Vital Signs - 12hr 03/03/20 03/03/20 03/03/20 07:44 10:00 12:15 Temperature 98.0 F 97.8 F Pulse Rate 70 71 Respiratory 18 16 Rate Respiratory 20 Rate [Right Toe ] Blood Pressure 170/69 163/69 O2 Sat by Pulse 96 92 Oximetry 03/03/20 16:12 Temperature 97.6 F Pulse Rate 73 Respiratory 18 Rate Respiratory Rate [Right Toe ] Blood Pressure 191/83 O2 Sat by Pulse 95 Oximetry General appearance: Present: no acute distress, well-nourished - EENT Eyes: PERRL, EOM intact ENT: hearing intact, clear oral mucosa Ears: bilateral: normal - Neck Neck: supple, normal ROM - Respiratory Respiratory effort: normal Respiratory: bilateral: CTA - Breasts Breasts: normal - Cardiovascular Heart rate: 78 Rhythm: regular Heart Sounds: Present: S1 & S2. Absent: gallop, rub Extremities: pulses intact, No edema, normal color, Full ROM, abnormal (S/p TMA of right third fourth fifth toes) Extremity abnormal: other (S/p TMA of right third fourth fifth toes) - Gastrointestinal General gastrointestinal: Present: soft, non-tender, non-distended, normal bowel sounds - Genitourinary Male genitourinary: normal - Integumentary Integumentary: clear, warm, dry - Musculoskeletal Musculoskeletal: 1, strength equal bilaterally - Neurologic Neurologic: moves all extremities - Psychiatric Psychiatric: memory intact, appropriate mood/affect, intact judgment & insight - Labs CBC & Chem 7: 03/03/20 05:33 03/06/20 05:30 Labs: Abnormal lab results 03/02/20 03/03/20 03/03/20 Range/Units 22:10 05:33 05:33 Lymph % (Auto) 11.1 L (13.4-35.0) % [place] % (Auto) 8.2 H (0.0-7.3) % [place] # (Auto) 0.9 H (0.0-0.8) K/mm3 Seg Neutrophils % 79.3 H (40.0-70.0) % Seg Neutrophils # 8.3 H (1.8-7.7) K/mm3 Sodium 134 L (137-145) mmol/L BUN 21 H (9-20) mg/dL Creatinine 1.9 H (0.8-1.3) mg/dL Glucose 222 H (75-100) mg/dL POC Glucose 228 H (70-105) mg/dL 03/03/20 03/03/20 03/03/20 Range/Units 07:46 12:16 16:13 Lymph % (Auto) (13.4-35.0) % [place] % (Auto) (0.0-7.3) % [place] # (Auto) (0.0-0.8) K/mm3 Seg Neutrophils % (40.0-70.0) % Seg Neutrophils # (1.8-7.7) K/mm3 Sodium (137-145) mmol/L BUN (9-20) mg/dL Creatinine (0.8-1.3) mg/dL Glucose (75-100) mg/dL POC Glucose 198 H 222 H 229 H (70-105) mg/dL
[2020-03-03] MEDS: SODIUM CHLORIDE 0.9% 1000 ML 1,000 ML IV SCH (21:37)
[2020-03-04] MEDS: hydrALAZINE 20 MG/1 ML INJ IV PRN ×2 (01:41→19:55)
[2020-03-04] MEDS: MORPHINE 2 MG/1 ML INJ IV PRN ×4 (01:42→22:10)
[2020-03-04] MEDS: CLINDAMYCIN 600 MG/50 mL 600 MG/50 ML BAG IV SCH ×3 (04:50→19:37)
[2020-03-04] MEDS: hydrALAZINE 25 MG TAB PO SCH ×3 (06:21→22:17)
[2020-03-04] MEDS: INSULIN LISPRO 100 UNIT/ML VIAL 3 mL SUB-Q SCH ×4 (08:05→22:24)
[2020-03-04] MEDS: INSULIN NPH/REGULAR 70/30 INJ SUB-Q SCH ×2 (08:05→16:48)
[2020-03-04] MEDS: CLOPIDOGREL 75 MG TAB PO SCH (09:03)
[2020-03-04] MEDS: CILOSTAZOL 100 MG TAB PO SCH ×2 (09:03→22:17)
[2020-03-04] MEDS: ASPIRIN EC 81 MG TAB PO SCH (09:03)
[2020-03-04] MEDS: METOPROLOL TARTRATE 25 MG TAB PO SCH ×2 (09:05→22:17)
--- NOTE | 2020-03-04 12:24 | Progress Note ---
Assessment and Plan - Patient Problems (1) Eecpq-[id number] kidney injury Current Visit: Yes Status: Acute Plan to address problem: Pt is able to increase his oral intake, will d/c IVF. He likely has at least underlying chronic kidney disease stage III in the setting of diabetes and hypertension. Renal function has improved back to his baseline. Renal function remains stable post revascularization procedure as well as Right 3rd/4th/5th toe TMA. We will continue to monitor closely. (2) Gangrene of toe of right foot Current Visit: Yes Status: Acute Plan to address problem: Status post right lower extremity revascularization yesterday. No acute issues overnight. We will continue to monitor renal functions daily. S/P TMA of right 3,4,5th toes POD 1. (3) Hypertension Current Visit: Yes Status: Acute Qualifiers: Hypertension type: essential hypertension Qualified Code(s): I10 - Essential (primary) hypertension Plan to address problem: Monitor blood pressures on the current regimen. As his appetite improves, would recommend that we wean off his continuous IVF. (4) Diabetes mellitus Current Visit: Yes Status: Acute Plan to address problem: Diabetes management per primary attending. Subjective Date of service: 03/04/20 Principal diagnosis: Right foot gangrene Interval history: Patient awake, alert, denies fever, chills, SOB, CP, n/v/d Objective - Vital Signs Vital signs: Vital Signs - 12hr 03/04/20 03/04/20 03/04/20 00:40 00:42 01:41 Temperature Pulse Rate 78 Respiratory Rate Blood Pressure 172/82 185/86 184/86 O2 Sat by Pulse Oximetry 03/04/20 03/04/20 03/04/20 04:50 06:21 08:02 Temperature 98.1 F 97.7 F Pulse Rate 75 75 82 Respiratory 18 18 Rate Blood Pressure 163/75 163/75 117/62 O2 Sat by Pulse 94 94 Oximetry 03/04/20 09:05 Temperature Pulse Rate 82 Respiratory Rate Blood Pressure 117/62 O2 Sat by Pulse Oximetry - General Appearance General appearance: well-developed, well-nourished, appears stated age EENT: ATNC, PERRL, mucous membranes moist Neck: no JVD Respiratory: Present: Clear to Ascultation Cardiology: regular, S1S2 Gastrointestinal: normal Integumentary: no rash Neurologic: no focal deficit, alert and oriented x3, strength 5/5, CN 3-12 intact Psychiatric: mood/affect appropriate, cooperative - Lab 03/03/20 05:33 03/03/20 05:33 Most recent lab results Calcium 8.7 mg/dL (8.4-10.2) 03/03/20 05:33 Magnesium 2.20 mg/dL (1.7-2.3) 02/25/20 05:32 Medications & Allergies - Medications Allergies/Adverse Reactions: Allergies No Known Allergies Allergy (Unverified 02/23/20 14:44) Active Medications: Generic Name Dose Route Start Last Admin Trade Name Freq PRN Reason Stop Dose Admin Acetaminophen 650 mg 02/24/20 00:13 Acetaminophen 325 Mg Tab PO Q4H PRN Pain MILD(1-3)/Fever >100.5/HART Aspirin 81 mg 02/29/20 10:00 03/04/20 09:03 Aspirin Ec 81 Mg Tab PO 81 mg QDAY SHANNON Administration Cilostazol 100 mg 02/28/20 15:00 03/04/20 09:03 Cilostazol 100 Mg Tab PO 100 mg BID SHANNON Administration Clopidogrel Bisulfate 75 mg 02/29/20 10:00 03/04/20 09:03 Clopidogrel 75 Mg Tab PO 75 mg QDAY SHANNON Administration Dextrose 0 ml 02/24/20 00:13 Dextrose 50% In Water (25gm) 50 Ml Syringe IV Q30MIN PRN Hypoglycemia Protocol Hydralazine HCl 50 mg 02/27/20 14:00 03/04/20 06:21 Hydralazine 25 Mg Tab PO 50 mg Q8HR SHANNON Administration Hydralazine HCl 10 mg 03/04/20 00:59 03/04/20 01:41 Hydralazine 20 Mg/1 Ml Inj IV 10 mg Q6H PRN Administration Hypertension Clindamycin HCl 600 mg in 50 mls @ 100 mls/hr 02/24/20 04:00 03/04/20 11:25 Cleocin 600 Mg/50 Ml IV 100 mls/hr Q8H SHANNON Administration Protocol Insulin Human Isoph/Insulin Regular 5 unit 02/26/20 17:00 03/03/20 17:10 Insulin Nph/Regular 70/30 Inj SUB-Q 5 unit BIDDIAB SHANNON Administration Insulin Human Lispro 0 unit 02/24/20 07:30 03/03/20 23:12 Insulin Lispro 100 Unit/Ml Vial 3 Ml SUB-Q 4 unit ACHS SHANNON Administration Protocol Magnesium Hydroxide 30 ml 02/24/20 00:13 Magnesium Hydroxide (Mom) Oral Liqd Udc PO Q4H PRN Constipation Metoprolol Tartrate 25 mg 02/27/20 22:00 03/04/20 09:05 Metoprolol Tartrate 25 Mg Tab PO 25 mg BID SHANNON Administration Morphine Sulfate 2 mg 02/24/20 00:13 03/04/20 09:07 Morphine 2 Mg/1 Ml Inj IV 2 mg Q4H PRN Administration Pain, Moderate (4-6) Ondansetron HCl 4 mg 02/24/20 00:13 02/27/20 21:44 Ondansetron 4 Mg/2 Ml Inj IV 4 mg Q8H PRN Administration Nausea And Vomiting Ondansetron HCl 4 mg 03/02/20 12:47 Ondansetron 4 Mg/2 Ml Inj IV ONCE PRN Nausea And Vomiting Sodium Chloride 10 ml 02/24/20 10:00 03/03/20 21:07 Sodium Chloride 0.9% 10 Ml Flush Syringe IV 10 ml BID SHANNON Administration Sodium Chloride 10 ml 02/24/20 00:13 Sodium Chloride 0.9% 10 Ml Flush Syringe IV PRN PRN LINE FLUSH
--- NOTE | 2020-03-04 17:58 | Progress Note ---
Assessment and Plan Assessment and Plan Assessment and plan: --Patient with osteomyelitis of right 3rd toe and gangrene of right 4th toe was evaluated by surgery and vascular The patient underwent endovascular revascularization on 02/28/2020 And TMA of the third remaining toe and fourth and fifth toes this morning 2020, postop care per Ortho Continue pain medications, wound and supportive care. -- Gangrene of right 3,4 and 5 toes Current Visit: Yes Status: Acute Plan to address problem: Continue empiric IV antibiotics. Vascular : evaluated the patient s/p endovascular revascularization 02/28/2020 s/p TMA of the right third fourth and fifth toes on 03/02/2020 Patient doing well after TMA of the right foot -- Hypertension Current Visit: Yes Status: Acute Plan to address problem: We resume routine home medications and monitor vital signs closely. --Arterial insufficiency of lower extremity Current Visit: Yes Status: Acute Plan to address problem: Patient to be evaluated by vascular surgery. --Acute kidney injury/vasomotor nephropathy Current Visit: Yes Status: Acute Plan to address problem: Nephrology following Significant improvement of creatinine level, today 1.6 Patient is receiving IV hopefully it will come down more by tomorrow Closely monitor renal function avoid nephrotoxins --Type II diabetes mellitus Current Visit: Yes Status: Acute Plan to address problem: Accu-Chek sliding scale coverage ADA diet Long-acting insulin as needed --Severe malnutrition/hypoalbuminemia Current Visit: Yes Status: Acute Plan to address problem: Nutrition supplements, nutrition consult Nutrition supplements, nutrition consult And supportive care --DVT prophylaxis Current Visit: Yes Status: Acute. Plan to address problem: Patient placed on sequential compression device. We will hold off anticoagulation in view of possible surgery. Subjective Date of service: 03/04/20 Principal diagnosis: Right foot gangrene Interval history: 64-year-old male with known history of coronary artery disease, hypertension, CHF, diabetes mellitus and chronic kidney disease sent in to the emergency room today by the vascular surgeon Dr. Shearer for suspicious gangrenous right fourth toe. Patient was recently seen at [facility] and placed on some antibiotics and subsequently discharged home. He was also seen yesterday by his log scaler Dr. Martin and was subsequently referred to the vascular surgeon for possible revascularization. However patient had a worsening renal function and therefore procedure was canceled. He was subsequently sent into the emergency r oom for further evaluation. Patient denies any fever or chills, no chest pain or shortness of breath, no nausea vomiting, no headache or dizziness, no hematuria or dysuria. Work-up in the emergency room today reveals a slightly elevated white count of 11.2 and a mild hyponatremia of 133. Patient was commenced on empiric IV antibiotics for right foot wound/gangrene. General surgery, vascular surgery, and pharmaceutical plant operator have been consulted by the ER physician. Objective - Constitutional Vitals: Vital Signs - 12hr 03/04/20 03/04/20 03/04/20 06:21 08:02 09:05 Temperature 97.7 F Pulse Rate 75 82 82 Respiratory 18 Rate Blood Pressure 163/75 117/62 117/62 O2 Sat by Pulse 94 Oximetry 03/04/20 03/04/20 12:25 13:46 Temperature 98.2 F Pulse Rate 74 Respiratory 18 Rate Blood Pressure 165/68 165/68 O2 Sat by Pulse 93 Oximetry General appearance: Present: no acute distress, well-nourished - EENT Eyes: PERRL, EOM intact ENT: hearing intact, clear oral mucosa Ears: bilateral: normal - Neck Neck: supple, normal ROM - Respiratory Respiratory effort: normal Respiratory: bilateral: CTA - Breasts Breasts: normal - Cardiovascular Heart rate: 78 Rhythm: regular Heart Sounds: Present: S1 & S2. Absent: gallop, rub Extremities: pulses intact, No edema, normal color, Full ROM, abnormal (TMA of right foot secondary to gangrene of third fourth and fifth toes of the right foot) Extremity abnormal: other (TMA of right foot) - Gastrointestinal General gastrointestinal: Present: soft, non-tender, non-distended, normal bowel sounds - Genitourinary Male genitourinary: normal - Integumentary Integumentary: clear, warm, dry - Musculoskeletal Musculoskeletal: 1, strength equal bilaterally - Neurologic Neurologic: moves all extremities - Psychiatric Psychiatric: memory intact, appropriate mood/affect, intact judgment & insight - Labs CBC & Chem 7: 03/03/20 05:33 03/06/20 05:30 Labs: Abnormal lab results 03/03/20 03/04/20 03/04/20 Range/Units 22:17 08:03 12:26 POC Glucose 250 H 222 H 284 H (70-105) mg/dL 03/04/20 Range/Units 16:28 POC Glucose 242 H (70-105) mg/dL
[2020-03-05] MEDS: CLINDAMYCIN 600 MG/50 mL 600 MG/50 ML BAG IV SCH ×3 (03:40→20:27)
[2020-03-05] MEDS: MORPHINE 2 MG/1 ML INJ IV PRN ×4 (03:41→23:35)
[2020-03-05] MEDS: hydrALAZINE 25 MG TAB PO SCH ×3 (05:28→21:45)
[2020-03-05] MEDS: ASPIRIN EC 81 MG TAB PO SCH ×2 (08:02→10:00)
[2020-03-05] MEDS: CILOSTAZOL 100 MG TAB PO SCH ×3 (08:02→21:47)
[2020-03-05] MEDS: CLOPIDOGREL 75 MG TAB PO SCH ×2 (08:02→10:00)
[2020-03-05] MEDS: METOPROLOL TARTRATE 25 MG TAB PO SCH ×3 (08:02→21:47)
[2020-03-05] MEDS: INSULIN NPH/REGULAR 70/30 INJ SUB-Q SCH ×2 (08:03→16:36)
[2020-03-05] MEDS: INSULIN LISPRO 100 UNIT/ML VIAL 3 mL SUB-Q SCH ×4 (08:04→22:44)
--- NOTE | 2020-03-05 11:46 | Progress Note ---
Assessment and Plan - Patient Problems (1) [id number] kidney injury Current Visit: Yes Status: Acute Plan to address problem: Pt is able to increase his oral intake, will d/c IVF. He likely has at least underlying chronic kidney disease stage III in the setting of diabetes and hypertension. Renal function has improved back to his baseline. Renal function remains stable post revascularization procedure as well as Right 3rd/4th/5th toe TMA. We will continue to monitor closely. (2) Gangrene of toe of right foot Current Visit: Yes Status: Acute Plan to address problem: Status post right lower extremity revascularization yesterday. No acute issues overnight. We will continue to monitor renal functions daily. S/P TMA of right 3,4,5th toes (3) Hypertension Current Visit: Yes Status: Acute Qualifiers: Hypertension type: essential hypertension Qualified Code(s): I10 - Essential (primary) hypertension Plan to address problem: Monitor blood pressures on the current regimen. As his appetite improves, would recommend that we wean off his continuous IVF. (4) Diabetes mellitus Current Visit: Yes Status: Acute Plan to address problem: Diabetes management per primary attending. Subjective Date of service: 03/05/20 Principal diagnosis: Right foot gangrene Interval history: Patient awake, alert, denies fever, chills, SOB, CP, n/v/d Objective - Vital Signs Vital signs: Vital Signs - 12hr 03/05/20 03/05/20 03/05/20 05:06 05:28 07:43 Temperature 98.5 F 98.2 F Pulse Rate 83 83 89 Respiratory 18 18 Rate Blood Pressure 122/40 122/40 154/71 O2 Sat by Pulse 94 95 Oximetry 03/05/20 08:02 Temperature Pulse Rate 89 Respiratory Rate Blood Pressure 157/71 O2 Sat by Pulse Oximetry - General Appearance General appearance: well-developed, well-nourished, appears stated age EENT: ATNC, PERRL, mucous membranes moist Neck: no JVD Respiratory: Present: Clear to Ascultation Cardiology: regular, S1S2 Gastrointestinal: normoactive bowel sounds Integumentary: no rash, other (R foot in dressing, intact. no edema ) Neurologic: no focal deficit, alert and oriented x3, CN 3-12 intact - Lab 03/03/20 05:33 03/03/20 05:33 Most recent lab results Calcium 8.7 mg/dL (8.4-10.2) 03/03/20 05:33 Magnesium 2.20 mg/dL (1.7-2.3) 02/25/20 05:32 Medications & Allergies - Medications Allergies/Adverse Reactions: Allergies No Known Allergies Allergy (Unverified 02/23/20 14:44) Active Medications: Generic Name Dose Route Start Last Admin Trade Name Freq PRN Reason Stop Dose Admin Acetaminophen 650 mg 02/24/20 00:13 Acetaminophen 325 Mg Tab PO Q4H PRN Pain MILD(1-3)/Fever >100.5/HART Aspirin 81 mg 02/29/20 10:00 03/05/20 08:02 Aspirin Ec 81 Mg Tab PO 81 mg QDAY SHANNON Administration Cilostazol 100 mg 02/28/20 15:00 03/05/20 08:02 Cilostazol 100 Mg Tab PO 100 mg BID SHANNON Administration Clopidogrel Bisulfate 75 mg 02/29/20 10:00 03/05/20 08:02 Clopidogrel 75 Mg Tab PO 75 mg QDAY SHANNON Administration Dextrose 0 ml 02/24/20 00:13 Dextrose 50% In Water (25gm) 50 Ml Syringe IV Q30MIN PRN Hypoglycemia Protocol Hydralazine HCl 50 mg 02/27/20 14:00 03/05/20 05:28 Hydralazine 25 Mg Tab PO 50 mg Q8HR SHANNON Administration Hydralazine HCl 10 mg 03/04/20 00:59 03/04/20 19:55 Hydralazine 20 Mg/1 Ml Inj IV 10 mg Q6H PRN Administration Hypertension Clindamycin HCl 600 mg in 50 mls @ 100 mls/hr 02/24/20 04:00 03/05/20 03:40 Cleocin 600 Mg/50 Ml IV 100 mls/hr Q8H SHANNON Administration Protocol Insulin Human Isoph/Insulin Regular 5 unit 02/26/20 17:00 03/05/20 08:03 Insulin Nph/Regular 70/30 Inj SUB-Q 5 unit BIDDIAB SHANNON Administration Insulin Human Lispro 0 unit 02/24/20 07:30 03/05/20 08:04 Insulin Lispro 100 Unit/Ml Vial 3 Ml SUB-Q 3 unit ACHS SHANNON Administration Protocol Magnesium Hydroxide 30 ml 02/24/20 00:13 Magnesium Hydroxide (Mom) Oral Liqd Udc PO Q4H PRN Constipation Metoprolol Tartrate 25 mg 02/27/20 22:00 03/05/20 08:02 Metoprolol Tartrate 25 Mg Tab PO 25 mg BID SHANNON Administration Morphine Sulfate 2 mg 02/24/20 00:13 03/05/20 03:41 Morphine 2 Mg/1 Ml Inj IV 2 mg Q4H PRN Administration Pain, Moderate (4-6) Ondansetron HCl 4 mg 02/24/20 00:13 02/27/20 21:44 Ondansetron 4 Mg/2 Ml Inj IV 4 mg Q8H PRN Administration Nausea And Vomiting Ondansetron HCl 4 mg 03/02/20 12:47 Ondansetron 4 Mg/2 Ml Inj IV ONCE PRN Nausea And Vomiting Sodium Chloride 10 ml 02/24/20 10:00 03/04/20 22:18 Sodium Chloride 0.9% 10 Ml Flush Syringe IV 10 ml BID SHANNON Administration Sodium Chloride 10 ml 02/24/20 00:13 Sodium Chloride 0.9% 10 Ml Flush Syringe IV PRN PRN LINE FLUSH
[2020-03-06] MEDS: MORPHINE 2 MG/1 ML INJ IV PRN ×3 (02:34→13:15)
[2020-03-06] MEDS: CLINDAMYCIN 600 MG/50 mL 600 MG/50 ML BAG IV SCH (04:00)
[2020-03-06 06:04] LABS: Calcium 8.7 mg/dL (8.4-10.2)
[2020-03-06] MEDS: hydrALAZINE 25 MG TAB PO SCH ×2 (06:06→13:18)
[2020-03-06] MEDS: INSULIN LISPRO 100 UNIT/ML VIAL 3 mL SUB-Q SCH ×3 (08:24→16:43)
[2020-03-06] MEDS: METOPROLOL TARTRATE 25 MG TAB PO SCH ×2 (08:24→10:41)
[2020-03-06] MEDS: CILOSTAZOL 100 MG TAB PO SCH ×2 (08:24→10:41)
[2020-03-06] MEDS: INSULIN NPH/REGULAR 70/30 INJ SUB-Q SCH ×2 (08:24→16:43)
[2020-03-06] MEDS: CLOPIDOGREL 75 MG TAB PO SCH ×2 (08:24→10:41)
[2020-03-06] MEDS: ASPIRIN EC 81 MG TAB PO SCH ×2 (08:24→09:17)
--- NOTE | 2020-03-06 09:58 | Progress Note ---
Assessment and Plan - Patient Problems (1) Bdwod-sz-zjvqyij kidney injury Current Visit: Yes Status: Acute Plan to address problem: Pt is able to increase his oral intake. IV NS discontinued. He likely has at least underlying chronic kidney disease stage III in the setting of diabetes and hypertension. Renal function has improved back to his baseline. Renal function remains stable post revascularization procedure as well as Right 3rd/4th/5th toe TMA. Otherwise stable for discharge from renal stand point with outpatient CKD f/u in 2 weeks. (2) Gangrene of toe of right foot Current Visit: Yes Status: Acute Plan to address problem: Status post right lower extremity revascularization yesterday. No acute issues overnight. We will continue to monitor renal functions daily. S/P TMA of right 3,4,5th toes (3) Hypertension Current Visit: Yes Status: Acute Qualifiers: Hypertension type: essential hypertension Qualified Code(s): I10 - Essential (primary) hypertension Plan to address problem: Monitor blood pressures on the current regimen. As his appetite improves, would recommend that we wean off his continuous IVF. (4) Diabetes mellitus Current Visit: Yes Status: Acute Plan to address problem: Diabetes management per primary attending. (5) Hyponatremia Current Visit: Yes Status: Acute Plan to address problem: mild asymptomatic hyponatremia. Glucose corrected Na is 133, no acute inte rvention needed at this time. will monitor BMP Subjective Date of service: 03/06/20 Principal diagnosis: Right foot gangrene Interval history: Patient awake, alert, denies fever, chills, SOB, CP, n/v/d Objective - Vital Signs Vital signs: Vital Signs - 12hr 03/06/20 03/06/20 03/06/20 00:08 04:42 06:06 Temperature 98.4 F 98.2 F Pulse Rate 71 77 77 Respiratory 16 14 Rate Blood Pressure 162/79 159/75 159/75 O2 Sat by Pulse 96 94 Oximetry 03/06/20 07:21 Temperature 97.5 F L Pulse Rate 73 Respiratory 18 Rate Blood Pressure 164/68 O2 Sat by Pulse 92 Oximetry - General Appearance General appearance: well-developed, well-nourished, appears stated age EENT: ATNC, PERRL, mucous membranes moist Neck: no JVD Respiratory: Present: Clear to Ascultation Cardiology: regular, S1S2 Gastrointestinal: normoactive bowel sounds Integumentary: no rash, other (Rt foot in dressing ) Neurologic: no focal deficit, alert and oriented x3, strength 5/5, CN 3-12 intact Psychiatric: mood/affect appropriate, cooperative - Lab 03/03/20 05:33 03/06/20 05:30 Most recent lab results Calcium 8.7 mg/dL (8.4-10.2) 03/06/20 05:30 Magnesium 2.20 mg/dL (1.7-2.3) 02/25/20 05:32 Medications & Allergies - Medications Allergies/Adverse Reactions: Allergies No Known Allergies Allergy (Unverified 02/23/20 14:44) Active Medications: Generic Name Dose Route Start Last Admin Trade Name Freq PRN Reason Stop Dose Admin Acetaminophen 650 mg 02/24/20 00:13 Acetaminophen 325 Mg Tab PO Q4H PRN Pain MILD(1-3)/Fever >100.5/HART Aspirin 81 mg 02/29/20 10:00 03/06/20 09:17 Aspirin Ec 81 Mg Tab PO Not Given QDAY SHANNON Cilostazol 100 mg 02/28/20 15:00 03/06/20 08:24 Cilostazol 100 Mg Tab PO 100 mg BID SHANNON Administration Clopidogrel Bisulfate 75 mg 02/29/20 10:00 03/06/20 08:24 Clopidogrel 75 Mg Tab PO 75 mg QDAY SHANNON Administration Dextrose 0 ml 02/24/20 00:13 Dextrose 50% In Water (25gm) 50 Ml Syringe IV Q30MIN PRN Hypoglycemia Protocol Hydralazine HCl 50 mg 02/27/20 14:00 03/06/20 06:06 Hydralazine 25 Mg Tab PO 50 mg Q8HR SHANNON Administration Hydralazine HCl 10 mg 03/04/20 00:59 03/04/20 19:55 Hydralazine 20 Mg/1 Ml Inj IV 10 mg Q6H PRN Administration Hypertension Insulin Human Isoph/Insulin Regular 5 unit 02/26/20 17:00 03/06/20 08:24 Insulin Nph/Regular 70/30 Inj SUB-Q 5 unit BIDDIAB SHNANON Administration Insulin Human Lispro 0 unit 02/24/20 07:30 03/06/20 08:24 Insulin Lispro 100 Unit/Ml Vial 3 Ml SUB-Q 2 unit ACHS SHANNON Administration Protocol Magnesium Hydroxide 30 ml 02/24/20 00:13 Magnesium Hydroxide (Mom) Oral Liqd Udc PO Q4H PRN Constipation Metoprolol Tartrate 25 mg 02/27/20 22:00 03/06/20 08:24 Metoprolol Tartrate 25 Mg Tab PO 25 mg BID SHANNON Administration Morphine Sulfate 2 mg 02/24/20 00:13 03/06/20 06:35 Morphine 2 Mg/1 Ml Inj IV 2 mg Q4H PRN Administration Pain, Moderate (4-6) Ondansetron HCl 4 mg 02/24/20 00:13 02/27/20 21:44 Ondansetron 4 Mg/2 Ml Inj IV 4 mg Q8H PRN Administration Nausea And Vomiting Ondansetron HCl 4 mg 03/02/20 12:47 Ondansetron 4 Mg/2 Ml Inj IV ONCE PRN Nausea And Vomiting Sodium Chloride 10 ml 02/24/20 10:00 03/06/20 08:25 Sodium Chloride 0.9% 10 Ml Flush Syringe IV 10 ml BID SHANNON Administration Sodium Chloride 10 ml 02/24/20 00:13 Sodium Chloride 0.9% 10 Ml Flush Syringe IV PRN PRN LINE FLUSH
[2020-03-06] MEDS ORDERED: SODIUM HYPOCHLORITE, DAKIN'S 1/2 STRENGTH (0.25%) 473 ML TOPICAL SOLN TP SCH (14:00)
[2020-03-06 15:44] VITALS: BP 177/91
[2020-03-06] MEDS: hydrALAZINE 20 MG/1 ML INJ IV PRN (15:53)
--- NOTE | 2020-03-06 17:29 | Progress Note ---
Assessment and Plan Assessment and Plan Assessment and plan: --Patient with osteomyelitis of right 3rd toe and gangrene of right 4th toe was evaluated by surgery and vascular The patient underwent endovascular revascularization on 02/28/2020 And TMA of the third remaining toe and fourth and fifth toes this morning 2020, postop care per Ortho Continue pain medications, wound and supportive care. -- Gangrene of right 3,4 and 5 toes Current Visit: Yes Status: Acute Plan to address problem: Continue empiric IV antibiotics. Vascular : evaluated the patient s/p endovascular revascularization 02/28/2020 s/p TMA of the right third fourth and fifth toes on 03/02/2020 Patient doing well after TMA of the right foot -- Hypertension Current Visit: Yes Status: Acute Plan to address problem: We resume routine home medications and monitor vital signs closely. --Arterial insufficiency of lower extremity Current Visit: Yes Status: Acute Plan to address problem: Patient to be evaluated by vascular surgery. --Acute kidney injury/vasomotor nephropathy Current Visit: Yes Status: Acute Plan to address problem: Nephrology following Significant improvement of creatinine level, today 1.6 Patient is receiving IV hopefully it will come down more by tomorrow Closely monitor renal function avoid nephrotoxins --Type II diabetes mellitus Current Visit: Yes Status: Acute Plan to address problem: Accu-Chek sliding scale coverage ADA diet Long-acting insulin as needed --Severe malnutrition/hypoalbuminemia Current Visit: Yes Status: Acute Plan to address problem: Nutrition supplements, nutrition consult Nutrition supplements, nutrition consult And supportive care --DVT prophylaxis Current Visit: Yes Status: Acute. Plan to address problem: Patient placed on sequential compression device. We will hold off anticoagulation in view of possible surgery. Subjective Date of service: 03/06/20 Principal diagnosis: Right foot gangrene Interval history: 64-year-old male with known history of coronary artery disease, hypertension, CHF, diabetes mellitus and chronic kidney disease sent in to the emergency room today by the vascular surgeon Dr. Shearer for suspicious gangrenous right fourth toe. Patient was recently seen at [facility] and placed on some antibiotics and subsequently discharged home. He was also seen yesterday by his manager house Dr. Martin and was subsequently referred to the vascular surgeon for possible revascularization. However patient had a worsening renal function and therefore procedure was canceled. He was subsequently sent into the emergency r oom for further evaluation. Patient denies any fever or chills, no chest pain or shortness of breath, no nausea vomiting, no headache or dizziness, no hematuria or dysuria. Work-up in the emergency room today reveals a slightly elevated white count of 11.2 and a mild hyponatremia of 133. Patient was commenced on empiric IV antibiotics for right foot wound/gangrene. General surgery, vascular surgery, and engine hostler have been consulted by the ER physician. S/p right foot TMA on 03/02/2020 Objective - Constitutional Vitals: Vital Signs - 12hr 03/06/20 03/06/20 03/06/20 06:06 07:05 07:21 Temperature 97.5 F L Pulse Rate 77 73 Respiratory 20 18 Rate Blood Pressure 159/75 164/68 O2 Sat by Pulse 92 Oximetry 03/06/20 03/06/20 03/06/20 11:01 13:45 15:27 Temperature 98.9 F 98.6 F Pulse Rate 75 79 Respiratory 20 19 19 Rate Blood Pressure 152/77 177/91 O2 Sat by Pulse 94 96 Oximetry General appearance: Present: no acute distress, well-nourished - EENT Eyes: PERRL, EOM intact ENT: hearing intact, clear oral mucosa Ears: bilateral: normal - Neck Neck: supple, normal ROM - Respiratory Respiratory effort: normal Respiratory: bilateral: CTA - Breasts Breasts: normal - Cardiovascular Rhythm: regular Heart Sounds: Present: S1 & S2. Absent: gallop, rub Extremities: pulses intact, No edema, normal color, Full ROM - Gastrointestinal General gastrointestinal: Present: soft, non-tender, non-distended, normal bowel sounds - Genitourinary Male genitourinary: normal - Integumentary Integumentary: clear, warm, dry - Musculoskeletal Musculoskeletal: 1, strength equal bilaterally - Neurologic Neurologic: moves all extremities - Psychiatric Psychiatric: memory intact, appropriate mood/affect, intact judgment & insight - Labs CBC & Chem 7: 03/03/20 05:33 03/06/20 05:30 Labs: Abnormal lab results 03/05/20 03/06/20 03/06/20 Range/Units 22:29 05:30 07:19 Sodium 130 L (137-145) mmol/L Creatinine 2.0 H (0.8-1.3) mg/dL Glucose 237 H (75-100) mg/dL POC Glucose 284 H 199 H (70-105) mg/dL 03/06/20 03/06/20 Range/Units 11:00 16:29 Sodium (137-145) mmol/L Creatinine (0.8-1.3) mg/dL Glucose (75-100) mg/dL POC Glucose 280 H 273 H (70-105) mg/dL
--- NOTE | 2020-03-06 17:33 | Discharge Summary ---
Providers - Providers Date of Admission: 02/23/20 21:43 Date of discharge: 03/06/20 Attending physician: WALT BOTELLO 02/23/20 18:41 Consult to Physician [CONS] Routine Comment: Consulting Provider: MAT RUSSO Physician Instructions: Reason For Exam: Atherosclerosis of RLE with gangrenous right 4th t 02/23/20 19:07 Consult to Physician [CONS] Routine Comment: Consulting Provider: LJ GARCIA Physician Instructions: Reason For Exam: Gangrenous right 4th toe 02/23/20 19:08 Consult to Physician [CONS] Routine Comment: Consulting Provider: JULIA BONILLA Physician Instructions: Reason For Exam: KYMBERLY on CKD, clearance for revascularization proced 02/24/20 00:13 Consult to Dietitian/Nutrition [CONS] Routine Physician Instructions: Reason For Exam: Reason for Consult: Diet education 02/28/20 09:00 Consult to Wound/ET Nurse [CONS] Routine Reason For Exam: wound eval 03/03/20 12:00 Physical Therapy Evaluation and Treat [CONS] Routine Comment: Reason For Exam: Debility 03/06/20 10:44 Consult to Case Management [CONS] Routine Services Needed at Discharge: Wound Vac Notified:: yes Phone number called:: [phone] Was contact made?: Yes If yes, spoke with:: DEBORA Time called:: 10:46 Primary care physician: OPHTHALMIC SURGEON Hospitalization Condition: Serious Hospital course: Assessment and Plan Assessment and plan: --Patient with osteomyelitis of right 3rd toe and gangrene of right 4th toe was evaluated by surgery and vascular The patient underwent endovascular revascularization on 02/28/2020 And TMA of the third remaining toe and fourth and fifth toes this morning 03/02/2020, postop care per Ortho Continue pain medications, wound and supportive care. TMA done on 03/02/[address] Garcia -- Gangrene of right 3,4 and 5 toes Current Visit: Yes Status: Acute Plan to address problem: Continue empiric IV antibiotics. Vascular : evaluated the patient s/p endovascular revascularization 02/28/2020 s/p TMA of the right third fourth and fifth toes on 03/02/2020 Patient doing well after TMA of the right foot Home health PT OT and wound care follow-up arranged -- Hypertension Current Visit: Yes Status: Acute Plan to address problem: We resume routine home medications and monitor vital signs closely. --Arterial insufficiency of lower extremity Current Visit: Yes Status: Acute Plan to address problem: Patient to be evaluated by vascular surgery. --Acute kidney injury/vasomotor nephropathy Current Visit: Yes Status: Acute Plan to address problem: Nephrology following Significant improvement of creatinine level, today 1.6 Patient is receiving IV hopefully it will come down more by tomorrow Closely monitor renal function avoid nephrotoxins Baseline creatinine 2.0 --Type II diabetes mellitus Current Visit: Yes Status: Acute Plan to address problem: Accu-Chek sliding scale coverage ADA diet Long-acting insulin as needed Insulin dosage adjusted --Severe malnutrition/hypoalbuminemia Current Visit: Yes Status: Acute Plan to address problem: Nutrition supplements, nutrition consult Nutrition supplements, nutrition consult And supportive care Disposition: DC-01 TO HOME OR SELFCARE Time spent for discharge: 32 minutes - Discharge Diagnoses (1) [id number] kidney injury Status: Acute (2) Arterial insufficiency of lower extremity Status: Acute (3) Gangrene of toe of right foot Status: Acute (4) Hypertension Status: Acute Qualifiers: Hypertension type: essential hypertension Qualified Code(s): I10 - Essential (primary) hypertension (5) Hyponatremia Status: Acute (6) Type 2 diabetes mellitus with diabetic nephropathy Status: Acute Core Measure Documentation - Palliative Care Palliative Care/ Comfort Measures: Not Applicable - Core Measures Any of the following diagnoses?: none Exam - Constitutional Vitals: Temp Pulse Resp BP Pulse Ox 98.6 F 79 19 177/91 96 03/06/20 15:27 03/06/20 15:27 03/06/20 15:27 03/06/20 15:27 03/06/20 15:27 General appearance: Present: no acute distress, well-nourished - EENT Eyes: Present: PERRL ENT: hearing intact, clear oral mucosa - Neck Neck: Present: supple, normal ROM - Respiratory Respiratory effort: normal Respiratory: bilateral: CTA - Cardiovascular Heart Sounds: Present: S1 & S2. Absent: rub, click - Extremities Extremities: pulses symmetrical, No edema, abnormal (TMA of the right foot involving third fourth fifth toes) Extremity abnormal: other (TMA of the right foot involving third fourth fifth toes) Peripheral Pulses: within normal limits - Abdominal General gastrointestinal: Present: soft, non-tender, non-distended, normal bowel sounds Male genitourinary: Present: normal - Integumentary Integumentary: Present: clear, warm, dry - Musculoskeletal Musculoskeletal: gait normal, strength equal bilaterally - Psychiatric Psychiatric: appropriate mood/affect, intact judgment & insight - Neurologic Neurologic: CNII-XII intact, moves all extremities Plan Activity: no restrictions Diet: diabetic Durable Medical Equipment Needed Upon Discharge: Crutches Follow up with: PRIMARY CARE, [Primary Care Provider] - 7 Days
== END 2020-03-06 18:25 | disposition home health service (06) | DRG 270 ==
LOC: ED 14:22 → 3A 21:43 → 3B-SURG 23:14
PROVIDERS: ADMIT Internal Medicine Geriatric Medicine; ATTEND Internal Medicine
PROC: 04CM3ZZ Extirpation of Matter from Right Popliteal Artery, Percutaneous Approach (ICD-10-PCS; principal; 2020-02-28)
PROC: 047M34Z Dilation of Right Popliteal Artery with Drug-eluting Intraluminal Device, Percutaneous Approach (ICD-10-PCS; 2020-02-28)
PROC: 047R3ZZ Dilation of Right Posterior Tibial Artery, Percutaneous Approach (ICD-10-PCS; 2020-02-28)
PROC: B41D1ZZ Fluoroscopy of Aorta and Bilateral Lower Extremity Arteries using Low Osmolar Contrast (ICD-10-PCS; 2020-02-28)
PROC: 0Y6T0Z0 Detachment at Right 3rd Toe, Complete, Open Approach (ICD-10-PCS; 2020-03-02)
PROC: 0Y6X0Z0 Detachment at Right 5th Toe, Complete, Open Approach (ICD-10-PCS; 2020-03-02)
PROC: 0Y6V0Z0 Detachment at Right 4th Toe, Complete, Open Approach (ICD-10-PCS; 2020-03-02)
DX: E11.52 Type 2 diabetes mellitus with diabetic peripheral angiopathy with gangrene (principal); N17.0 Acute kidney failure with tubular necrosis; E43 Unspecified severe protein-calorie malnutrition; N18.6 End stage renal disease; I96 Gangrene, not elsewhere classified; I13.2 Hypertensive heart and chronic kidney disease with heart failure and with stage 5 chronic kidney disease, or end stage renal disease; M86.171 Other acute osteomyelitis, right ankle and foot; E11.69 Type 2 diabetes mellitus with other specified complication; I25.10 Atherosclerotic heart disease of native coronary artery without angina pectoris; E11.40 Type 2 diabetes mellitus with diabetic neuropathy, unspecified; E88.09 Other disorders of plasma-protein metabolism, not elsewhere classified; E11.22 Type 2 diabetes mellitus with diabetic chronic kidney disease; Z95.5 Presence of coronary angioplasty implant and graft; Z79.899 Other long term (current) drug therapy; Z68.37 Body mass index [BMI] 37.0-37.9, adult
CPT/HCPCS: 36415; 37225; 37231; 75625; 75710; 76937; 80048; 80076; 82962; 83036; 83735; 85025; 85610; 85730; 87040; 88302; 88304; 88311; 90471; 96374; 96375; 96376; G0378; A6260; C1714; C1725; C1760; C1769; C1874; C1884; C1887; C2623; J0360; J0690; J1170; J1200; J1644; J1815; J2250; J2270; J2405; J2543; J2704; J2930; J3010; J7030; J7040; Q9967

== ENCOUNTER 2020-03-15 10:00 | Outpatient (CLI) | payer OTHER ==
[2020-03-15] MEDS ORDERED: LIDOCAINE (4%) 40 MG/ML TOPICAL SOLN 50 ML BOTTLE TP ONE (10:35)
[2020-03-15] MEDS ORDERED: SODIUM HYPOCHLORITE, DAKIN'S FULL STRENGTH (0.5%) 473 ML TOPICAL SOLN TP ONE (11:34)
== END 2020-03-15 10:01 | disposition home or self-care (01) ==
LOC: WOUND 10:00
PROVIDERS: ATTEND Surgery
DX: T87.89 Other complications of amputation stump (principal); E11.621 Type 2 diabetes mellitus with foot ulcer; I70.235 Atherosclerosis of native arteries of right leg with ulceration of other part of foot; L97.514 Non-pressure chronic ulcer of other part of right foot with necrosis of bone; I25.10 Atherosclerotic heart disease of native coronary artery without angina pectoris; E11.51 Type 2 diabetes mellitus with diabetic peripheral angiopathy without gangrene; I10 Essential (primary) hypertension; H26.8 Other specified cataract; Z87.891 Personal history of nicotine dependence; Z95.1 Presence of aortocoronary bypass graft; Y83.5 Amputation of limb(s) as the cause of abnormal reaction of the patient, or of later complication, without mention of misadventure at the time of the procedure; Y92.238 Other place in hospital as the place of occurrence of the external cause
CPT/HCPCS: 11044; 11047; G0463; 99215

== ENCOUNTER 2020-03-20 10:47 | Outpatient (CLI) | payer OTHER ==
[2020-03-20] MEDS ORDERED: LIDOCAINE (4%) 40 MG/ML TOPICAL SOLN 50 ML BOTTLE TP SCH (11:00)
== END 2020-03-20 10:48 | disposition home or self-care (01) ==
LOC: WOUND 10:47
PROVIDERS: ATTEND Surgery
DX: T87.89 Other complications of amputation stump (principal); E11.621 Type 2 diabetes mellitus with foot ulcer; I70.235 Atherosclerosis of native arteries of right leg with ulceration of other part of foot; L97.514 Non-pressure chronic ulcer of other part of right foot with necrosis of bone; I25.10 Atherosclerotic heart disease of native coronary artery without angina pectoris; E11.51 Type 2 diabetes mellitus with diabetic peripheral angiopathy without gangrene; E11.69 Type 2 diabetes mellitus with other specified complication; M86.071 Acute hematogenous osteomyelitis, right ankle and foot; I10 Essential (primary) hypertension; H26.8 Other specified cataract; Z87.891 Personal history of nicotine dependence; Z95.1 Presence of aortocoronary bypass graft; Y83.5 Amputation of limb(s) as the cause of abnormal reaction of the patient, or of later complication, without mention of misadventure at the time of the procedure

== ENCOUNTER 2020-03-29 09:27 | Outpatient (CLI) | payer OTHER ==
[2020-03-29] MEDS ORDERED: LIDOCAINE (4%) 40 MG/ML TOPICAL SOLN 50 ML BOTTLE TP ONE (09:32)
== END 2020-03-29 09:28 | disposition home or self-care (01) ==
LOC: WOUND 09:27
PROVIDERS: ATTEND Surgery
DX: T87.89 Other complications of amputation stump (principal); E11.621 Type 2 diabetes mellitus with foot ulcer; I70.235 Atherosclerosis of native arteries of right leg with ulceration of other part of foot; L97.514 Non-pressure chronic ulcer of other part of right foot with necrosis of bone; I25.10 Atherosclerotic heart disease of native coronary artery without angina pectoris; E11.51 Type 2 diabetes mellitus with diabetic peripheral angiopathy without gangrene; E11.69 Type 2 diabetes mellitus with other specified complication; M86.071 Acute hematogenous osteomyelitis, right ankle and foot; I10 Essential (primary) hypertension; H26.8 Other specified cataract; Z87.891 Personal history of nicotine dependence; Z95.1 Presence of aortocoronary bypass graft; Y83.5 Amputation of limb(s) as the cause of abnormal reaction of the patient, or of later complication, without mention of misadventure at the time of the procedure
CPT/HCPCS: 97605

== ENCOUNTER 2020-03-29 10:47 | Outpatient (CLI) | payer OTHER ==
--- NOTE | 2020-03-29 11:32 | XRay Report ---
CHEST 2 VIEWS INDICATION: FOR HBO CLEARANCE. COMPARISON: None FINDINGS: Support devices: None. Heart: Within normal limits. Previous CABG changes are suspected. Lungs/pleura: No acute air space or interstitial disease. No pneumothorax. Additional findings: None. IMPRESSION: No acute findings. Signer Name: Gerardo Espinosa Jr, MD Signed: 03/29/2020 11:27 AM Workstation Name: [id number]
== END 2020-03-29 10:48 | disposition home or self-care (01) ==
LOC: XRAY 10:47
PROVIDERS: ATTEND Surgery
DX: E11.621 Type 2 diabetes mellitus with foot ulcer (principal); L97.514 Non-pressure chronic ulcer of other part of right foot with necrosis of bone
CPT/HCPCS: 71046

== ENCOUNTER 2020-04-05 09:34 | Outpatient (CLI) | payer OTHER ==
[2020-04-05] MEDS ORDERED: LIDOCAINE (4%) 40 MG/ML TOPICAL SOLN 50 ML BOTTLE TP ONE (09:43)
== END 2020-04-05 09:35 | disposition home or self-care (01) ==
LOC: WOUND 09:34
PROVIDERS: ATTEND Surgery
DX: T87.89 Other complications of amputation stump (principal); E11.621 Type 2 diabetes mellitus with foot ulcer; I70.235 Atherosclerosis of native arteries of right leg with ulceration of other part of foot; L97.514 Non-pressure chronic ulcer of other part of right foot with necrosis of bone; I25.10 Atherosclerotic heart disease of native coronary artery without angina pectoris; E11.51 Type 2 diabetes mellitus with diabetic peripheral angiopathy without gangrene; E11.69 Type 2 diabetes mellitus with other specified complication; M86.071 Acute hematogenous osteomyelitis, right ankle and foot; I10 Essential (primary) hypertension; H26.8 Other specified cataract; Z87.891 Personal history of nicotine dependence; Z95.1 Presence of aortocoronary bypass graft; Y83.5 Amputation of limb(s) as the cause of abnormal reaction of the patient, or of later complication, without mention of misadventure at the time of the procedure

== ENCOUNTER 2020-04-12 09:44 | Outpatient (CLI) | payer OTHER ==
[2020-04-12] MEDS ORDERED: SILVER NITRATE APPLICATOR 1 EA TP ONE (09:52)
[2020-04-12] MEDS ORDERED: LIDOCAINE (4%) 40 MG/ML TOPICAL SOLN 50 ML BOTTLE TP ONE (09:52)
== END 2020-04-12 09:45 | disposition home or self-care (01) ==
LOC: WOUND 09:44
PROVIDERS: ATTEND Surgery
DX: E11.621 Type 2 diabetes mellitus with foot ulcer (principal); L97.514 Non-pressure chronic ulcer of other part of right foot with necrosis of bone; I25.10 Atherosclerotic heart disease of native coronary artery without angina pectoris; E11.51 Type 2 diabetes mellitus with diabetic peripheral angiopathy without gangrene; E11.69 Type 2 diabetes mellitus with other specified complication; M86.071 Acute hematogenous osteomyelitis, right ankle and foot; I10 Essential (primary) hypertension; H26.8 Other specified cataract; Z87.891 Personal history of nicotine dependence; Y83.5 Amputation of limb(s) as the cause of abnormal reaction of the patient, or of later complication, without mention of misadventure at the time of the procedure
CPT/HCPCS: 97605

== ENCOUNTER 2020-04-19 13:25 | Outpatient (CLI) | payer OTHER ==
[2020-04-19] MEDS ORDERED: LIDOCAINE (4%) 40 MG/ML TOPICAL SOLN 50 ML BOTTLE TP ONE (13:44)
== END 2020-04-19 13:26 | disposition home or self-care (01) ==
LOC: WOUND 13:25
PROVIDERS: ATTEND Surgery
DX: E11.621 Type 2 diabetes mellitus with foot ulcer (principal); L97.514 Non-pressure chronic ulcer of other part of right foot with necrosis of bone; I70.261 Atherosclerosis of native arteries of extremities with gangrene, right leg; E11.51 Type 2 diabetes mellitus with diabetic peripheral angiopathy without gangrene; E11.69 Type 2 diabetes mellitus with other specified complication; M86.071 Acute hematogenous osteomyelitis, right ankle and foot; I10 Essential (primary) hypertension; I25.10 Atherosclerotic heart disease of native coronary artery without angina pectoris; H26.8 Other specified cataract; Z87.891 Personal history of nicotine dependence
CPT/HCPCS: 97605

== ENCOUNTER 2020-04-26 11:04 | Outpatient (CLI) | payer OTHER ==
[2020-04-26] MEDS ORDERED: LIDOCAINE (4%) 40 MG/ML TOPICAL SOLN 50 ML BOTTLE TP ONE (11:18)
== END 2020-04-26 11:05 | disposition home or self-care (01) ==
LOC: WOUND 11:04
PROVIDERS: ATTEND Surgery
DX: E11.621 Type 2 diabetes mellitus with foot ulcer (principal); L97.514 Non-pressure chronic ulcer of other part of right foot with necrosis of bone; I70.261 Atherosclerosis of native arteries of extremities with gangrene, right leg; E11.51 Type 2 diabetes mellitus with diabetic peripheral angiopathy without gangrene; E11.69 Type 2 diabetes mellitus with other specified complication; M86.071 Acute hematogenous osteomyelitis, right ankle and foot; I10 Essential (primary) hypertension; I25.10 Atherosclerotic heart disease of native coronary artery without angina pectoris; H26.8 Other specified cataract; Z87.891 Personal history of nicotine dependence
CPT/HCPCS: 97605

== ENCOUNTER 2020-05-03 13:39 | Outpatient (CLI) | payer OTHER ==
[2020-05-03] MEDS ORDERED: LIDOCAINE (4%) 40 MG/ML TOPICAL SOLN 50 ML BOTTLE TP SCH (14:00)
== END 2020-05-03 13:40 | disposition home or self-care (01) ==
LOC: WOUND 13:39
PROVIDERS: ATTEND Surgery
DX: E11.621 Type 2 diabetes mellitus with foot ulcer (principal); L97.514 Non-pressure chronic ulcer of other part of right foot with necrosis of bone; I70.261 Atherosclerosis of native arteries of extremities with gangrene, right leg; E11.51 Type 2 diabetes mellitus with diabetic peripheral angiopathy without gangrene; E11.69 Type 2 diabetes mellitus with other specified complication; M86.071 Acute hematogenous osteomyelitis, right ankle and foot; I10 Essential (primary) hypertension; I25.10 Atherosclerotic heart disease of native coronary artery without angina pectoris; H26.8 Other specified cataract; Z87.891 Personal history of nicotine dependence
CPT/HCPCS: 97605

== ENCOUNTER 2020-05-10 08:59 | Outpatient (CLI) | payer OTHER ==
[2020-05-10] MEDS ORDERED: LIDOCAINE (4%) 40 MG/ML TOPICAL SOLN 50 ML BOTTLE TP ONE (09:00)
== END 2020-05-10 09:00 | disposition home or self-care (01) ==
LOC: WOUND 08:59
PROVIDERS: ATTEND Surgery
DX: E11.621 Type 2 diabetes mellitus with foot ulcer (principal); L97.514 Non-pressure chronic ulcer of other part of right foot with necrosis of bone; I70.261 Atherosclerosis of native arteries of extremities with gangrene, right leg; E11.51 Type 2 diabetes mellitus with diabetic peripheral angiopathy without gangrene; E11.69 Type 2 diabetes mellitus with other specified complication; M86.071 Acute hematogenous osteomyelitis, right ankle and foot; I10 Essential (primary) hypertension; I25.10 Atherosclerotic heart disease of native coronary artery without angina pectoris; H26.8 Other specified cataract; Z87.891 Personal history of nicotine dependence
CPT/HCPCS: 97605

== ENCOUNTER 2020-05-17 09:08 | Outpatient (CLI) | payer OTHER ==
[2020-05-17] MEDS ORDERED: LIDOCAINE (4%) 40 MG/ML TOPICAL SOLN 50 ML BOTTLE TP ONE (09:10)
== END 2020-05-17 09:09 | disposition home or self-care (01) ==
LOC: WOUND 09:08
PROVIDERS: ATTEND Surgery
DX: E11.621 Type 2 diabetes mellitus with foot ulcer (principal); L97.514 Non-pressure chronic ulcer of other part of right foot with necrosis of bone; I70.621 Atherosclerosis of nonbiological bypass graft(s) of the extremities with rest pain, right leg; E11.51 Type 2 diabetes mellitus with diabetic peripheral angiopathy without gangrene; E11.69 Type 2 diabetes mellitus with other specified complication; M86.071 Acute hematogenous osteomyelitis, right ankle and foot; I10 Essential (primary) hypertension; I25.10 Atherosclerotic heart disease of native coronary artery without angina pectoris; H26.8 Other specified cataract; Z87.891 Personal history of nicotine dependence; Z89.421 Acquired absence of other right toe(s); Z95.1 Presence of aortocoronary bypass graft
CPT/HCPCS: 97605

== ENCOUNTER 2020-05-22 09:59 | Outpatient (CLI) | payer OTHER ==
[2020-05-22] MEDS ORDERED: LIDOCAINE (4%) 40 MG/ML TOPICAL SOLN 50 ML BOTTLE TP SCH (11:00)
== END 2020-05-22 10:00 | disposition home or self-care (01) ==
LOC: WOUND 09:59
PROVIDERS: ATTEND Surgery
DX: E11.621 Type 2 diabetes mellitus with foot ulcer (principal); L97.514 Non-pressure chronic ulcer of other part of right foot with necrosis of bone; I70.261 Atherosclerosis of native arteries of extremities with gangrene, right leg; E11.51 Type 2 diabetes mellitus with diabetic peripheral angiopathy without gangrene; E11.69 Type 2 diabetes mellitus with other specified complication; M86.071 Acute hematogenous osteomyelitis, right ankle and foot; I10 Essential (primary) hypertension; I25.10 Atherosclerotic heart disease of native coronary artery without angina pectoris; H26.8 Other specified cataract; Z87.891 Personal history of nicotine dependence
CPT/HCPCS: 97605

== ENCOUNTER 2020-05-31 08:56 | Outpatient (CLI) | payer OTHER ==
[2020-05-31] MEDS ORDERED: LIDOCAINE (4%) 40 MG/ML TOPICAL SOLN 50 ML BOTTLE TP ONE (09:35)
== END 2020-05-31 08:57 | disposition home or self-care (01) ==
LOC: WOUND 08:56
PROVIDERS: ATTEND Surgery
DX: E11.621 Type 2 diabetes mellitus with foot ulcer (principal); L97.514 Non-pressure chronic ulcer of other part of right foot with necrosis of bone; I70.261 Atherosclerosis of native arteries of extremities with gangrene, right leg; E11.51 Type 2 diabetes mellitus with diabetic peripheral angiopathy without gangrene; E11.69 Type 2 diabetes mellitus with other specified complication; M86.071 Acute hematogenous osteomyelitis, right ankle and foot; E11.36 Type 2 diabetes mellitus with diabetic cataract; H26.8 Other specified cataract; I10 Essential (primary) hypertension; I25.10 Atherosclerotic heart disease of native coronary artery without angina pectoris; Z87.891 Personal history of nicotine dependence; Z89.421 Acquired absence of other right toe(s); Z95.1 Presence of aortocoronary bypass graft; Z79.4 Long term (current) use of insulin; Z79.82 Long term (current) use of aspirin
CPT/HCPCS: 97605

== ENCOUNTER 2020-06-07 08:39 | Outpatient (CLI) | payer OTHER ==
[2020-06-07] MEDS ORDERED: LIDOCAINE (4%) 40 MG/ML TOPICAL SOLN 50 ML BOTTLE TP ONE (08:46)
== END 2020-06-07 08:40 | disposition home or self-care (01) ==
LOC: WOUND 08:39
PROVIDERS: ATTEND Surgery
DX: E11.621 Type 2 diabetes mellitus with foot ulcer (principal); L97.514 Non-pressure chronic ulcer of other part of right foot with necrosis of bone; I70.261 Atherosclerosis of native arteries of extremities with gangrene, right leg; E11.51 Type 2 diabetes mellitus with diabetic peripheral angiopathy without gangrene; E11.69 Type 2 diabetes mellitus with other specified complication; M86.071 Acute hematogenous osteomyelitis, right ankle and foot; E11.36 Type 2 diabetes mellitus with diabetic cataract; H26.8 Other specified cataract; I10 Essential (primary) hypertension; I25.10 Atherosclerotic heart disease of native coronary artery without angina pectoris; Z87.891 Personal history of nicotine dependence; Z89.421 Acquired absence of other right toe(s); Z95.1 Presence of aortocoronary bypass graft; Z79.4 Long term (current) use of insulin; Z79.82 Long term (current) use of aspirin
CPT/HCPCS: 97605

== ENCOUNTER 2020-06-14 08:37 | Outpatient (CLI) | payer MEDICARE, OTHER ==
[2020-06-14] MEDS ORDERED: LIDOCAINE (4%) 40 MG/ML TOPICAL SOLN 50 ML BOTTLE TP ONE (08:56)
== END 2020-06-14 08:38 | disposition home or self-care (01) ==
LOC: WOUND 08:37
PROVIDERS: ATTEND Surgery
DX: E11.621 Type 2 diabetes mellitus with foot ulcer (principal); L97.514 Non-pressure chronic ulcer of other part of right foot with necrosis of bone; I70.261 Atherosclerosis of native arteries of extremities with gangrene, right leg; E11.51 Type 2 diabetes mellitus with diabetic peripheral angiopathy without gangrene; E11.69 Type 2 diabetes mellitus with other specified complication; M86.071 Acute hematogenous osteomyelitis, right ankle and foot; E11.36 Type 2 diabetes mellitus with diabetic cataract; H26.8 Other specified cataract; I10 Essential (primary) hypertension; I25.10 Atherosclerotic heart disease of native coronary artery without angina pectoris; Z87.891 Personal history of nicotine dependence; Z89.421 Acquired absence of other right toe(s); Z95.1 Presence of aortocoronary bypass graft; Z79.4 Long term (current) use of insulin; Z79.82 Long term (current) use of aspirin

== ENCOUNTER 2020-06-21 08:17 | Outpatient (CLI) | payer MEDICARE ==
[2020-06-21] MEDS ORDERED: LIDOCAINE (4%) 40 MG/ML TOPICAL SOLN 50 ML BOTTLE TP ONE (08:23)
[2020-06-21] MEDS ORDERED: SILVER NITRATE APPLICATOR 1 EA TP ONE (09:17)
== END 2020-06-21 08:18 | disposition home or self-care (01) ==
LOC: WOUND 08:17
PROVIDERS: ATTEND Surgery
DX: E11.621 Type 2 diabetes mellitus with foot ulcer (principal); I70.261 Atherosclerosis of native arteries of extremities with gangrene, right leg; L97.514 Non-pressure chronic ulcer of other part of right foot with necrosis of bone; E11.51 Type 2 diabetes mellitus with diabetic peripheral angiopathy without gangrene; E11.69 Type 2 diabetes mellitus with other specified complication; M86.071 Acute hematogenous osteomyelitis, right ankle and foot; E11.36 Type 2 diabetes mellitus with diabetic cataract; H26.8 Other specified cataract; L84 Corns and callosities; I10 Essential (primary) hypertension; I25.10 Atherosclerotic heart disease of native coronary artery without angina pectoris; Z87.891 Personal history of nicotine dependence; Z89.421 Acquired absence of other right toe(s); Z95.1 Presence of aortocoronary bypass graft; Z79.4 Long term (current) use of insulin; Z79.82 Long term (current) use of aspirin
CPT/HCPCS: 97605

== ENCOUNTER 2020-06-28 09:08 | Outpatient (CLI) | payer MEDICARE ==
[2020-06-28] MEDS ORDERED: LIDOCAINE (4%) 40 MG/ML TOPICAL SOLN 50 ML BOTTLE TP ONE (09:54)
== END 2020-06-28 09:09 | disposition home or self-care (01) ==
LOC: WOUND 09:08
PROVIDERS: ATTEND Surgery
DX: E11.621 Type 2 diabetes mellitus with foot ulcer (principal); I70.261 Atherosclerosis of native arteries of extremities with gangrene, right leg; L97.514 Non-pressure chronic ulcer of other part of right foot with necrosis of bone; E11.51 Type 2 diabetes mellitus with diabetic peripheral angiopathy without gangrene; E11.69 Type 2 diabetes mellitus with other specified complication; M86.071 Acute hematogenous osteomyelitis, right ankle and foot; E11.36 Type 2 diabetes mellitus with diabetic cataract; H26.8 Other specified cataract; L84 Corns and callosities; I10 Essential (primary) hypertension; I25.10 Atherosclerotic heart disease of native coronary artery without angina pectoris; Z87.891 Personal history of nicotine dependence; Z89.421 Acquired absence of other right toe(s); Z95.1 Presence of aortocoronary bypass graft; Z79.4 Long term (current) use of insulin; Z79.82 Long term (current) use of aspirin
CPT/HCPCS: 97605

== ENCOUNTER 2020-07-05 09:06 | Outpatient (CLI) | payer MEDICARE | END 2020-07-05 09:07 | disposition home or self-care (01) | LOC: WOUND 09:06 | PROVIDERS: ATTEND Surgery | DX: E11.621 Type 2 diabetes mellitus with foot ulcer (principal); I70.261 Atherosclerosis of native arteries of extremities with gangrene, right leg; L97.514 Non-pressure chronic ulcer of other part of right foot with necrosis of bone; E11.51 Type 2 diabetes mellitus with diabetic peripheral angiopathy without gangrene; E11.69 Type 2 diabetes mellitus with other specified complication; M86.071 Acute hematogenous osteomyelitis, right ankle and foot; E11.36 Type 2 diabetes mellitus with diabetic cataract; H26.8 Other specified cataract; L84 Corns and callosities; I10 Essential (primary) hypertension; I25.10 Atherosclerotic heart disease of native coronary artery without angina pectoris; Z87.891 Personal history of nicotine dependence; Z89.421 Acquired absence of other right toe(s); Z95.1 Presence of aortocoronary bypass graft; Z79.4 Long term (current) use of insulin; Z79.82 Long term (current) use of aspirin ==

== ENCOUNTER 2020-07-12 08:45 | Outpatient (CLI) | payer MEDICARE ==
[2020-07-12] MEDS ORDERED: LIDOCAINE (4%) 40 MG/ML TOPICAL SOLN 50 ML BOTTLE TP ONE (09:09)
== END 2020-07-12 08:46 | disposition home or self-care (01) ==
LOC: WOUND 08:45
PROVIDERS: ATTEND Surgery
DX: E11.621 Type 2 diabetes mellitus with foot ulcer (principal); I70.261 Atherosclerosis of native arteries of extremities with gangrene, right leg; L97.514 Non-pressure chronic ulcer of other part of right foot with necrosis of bone; E11.51 Type 2 diabetes mellitus with diabetic peripheral angiopathy without gangrene; E11.69 Type 2 diabetes mellitus with other specified complication; M86.071 Acute hematogenous osteomyelitis, right ankle and foot; E11.36 Type 2 diabetes mellitus with diabetic cataract; H26.8 Other specified cataract; L84 Corns and callosities; I10 Essential (primary) hypertension; I25.10 Atherosclerotic heart disease of native coronary artery without angina pectoris; Z87.891 Personal history of nicotine dependence; Z89.421 Acquired absence of other right toe(s); Z95.1 Presence of aortocoronary bypass graft; Z79.4 Long term (current) use of insulin; Z79.82 Long term (current) use of aspirin

== ENCOUNTER 2020-07-19 08:39 | Outpatient (CLI) | payer MEDICARE | END 2020-07-19 08:40 | disposition home or self-care (01) | LOC: WOUND 08:39 ==

== ENCOUNTER 2020-08-02 10:36 | Outpatient (CLI) | payer MEDICARE | END 2020-08-02 10:37 | disposition home or self-care (01) | LOC: WOUND 10:36 | PROVIDERS: ATTEND Surgery | DX: E11.621 Type 2 diabetes mellitus with foot ulcer (principal); I70.261 Atherosclerosis of native arteries of extremities with gangrene, right leg; L97.514 Non-pressure chronic ulcer of other part of right foot with necrosis of bone; E11.51 Type 2 diabetes mellitus with diabetic peripheral angiopathy without gangrene; E11.69 Type 2 diabetes mellitus with other specified complication; M86.071 Acute hematogenous osteomyelitis, right ankle and foot; E11.36 Type 2 diabetes mellitus with diabetic cataract; H26.8 Other specified cataract; L84 Corns and callosities; I10 Essential (primary) hypertension; I25.10 Atherosclerotic heart disease of native coronary artery without angina pectoris; Z87.891 Personal history of nicotine dependence; Z89.421 Acquired absence of other right toe(s); Z95.1 Presence of aortocoronary bypass graft; Z79.4 Long term (current) use of insulin; Z79.82 Long term (current) use of aspirin ==

== ENCOUNTER 2020-08-16 09:10 | Outpatient (CLI) | payer MEDICARE ==
[2020-08-16] MEDS ORDERED: SILVER NITRATE APPLICATOR 1 EA TP ONE (09:48)
== END 2020-08-16 09:11 | disposition home or self-care (01) ==
LOC: WOUND 09:10
PROVIDERS: ATTEND Surgery
DX: E11.621 Type 2 diabetes mellitus with foot ulcer (principal); I70.261 Atherosclerosis of native arteries of extremities with gangrene, right leg; L97.514 Non-pressure chronic ulcer of other part of right foot with necrosis of bone; E11.51 Type 2 diabetes mellitus with diabetic peripheral angiopathy without gangrene; E11.69 Type 2 diabetes mellitus with other specified complication; M86.071 Acute hematogenous osteomyelitis, right ankle and foot; E11.36 Type 2 diabetes mellitus with diabetic cataract; H26.8 Other specified cataract; L84 Corns and callosities; I10 Essential (primary) hypertension; I25.10 Atherosclerotic heart disease of native coronary artery without angina pectoris; Z87.891 Personal history of nicotine dependence; Z89.421 Acquired absence of other right toe(s); Z95.1 Presence of aortocoronary bypass graft; Z79.4 Long term (current) use of insulin; Z79.82 Long term (current) use of aspirin
CPT/HCPCS: 17250

== ENCOUNTER 2020-08-30 11:27 | Outpatient (CLI) | payer MEDICARE | END 2020-08-30 11:28 | disposition home or self-care (01) | LOC: WOUND 11:27 | PROVIDERS: ATTEND Surgery | DX: E11.621 Type 2 diabetes mellitus with foot ulcer (principal); I70.261 Atherosclerosis of native arteries of extremities with gangrene, right leg; L97.518 Non-pressure chronic ulcer of other part of right foot with other specified severity; E11.51 Type 2 diabetes mellitus with diabetic peripheral angiopathy without gangrene; E11.69 Type 2 diabetes mellitus with other specified complication; M86.071 Acute hematogenous osteomyelitis, right ankle and foot; E11.36 Type 2 diabetes mellitus with diabetic cataract; H26.8 Other specified cataract; L84 Corns and callosities; I10 Essential (primary) hypertension; I25.10 Atherosclerotic heart disease of native coronary artery without angina pectoris; Z87.891 Personal history of nicotine dependence; Z89.421 Acquired absence of other right toe(s); Z95.1 Presence of aortocoronary bypass graft; Z79.4 Long term (current) use of insulin; Z79.82 Long term (current) use of aspirin | CPT/HCPCS: 99212; G0463 ==